=== PATIENT | female | born 1990 | race Caucasian/White ===

== ENCOUNTER 2017-04-07 15:13 | Outpatient (CLI) | payer MEDICAID ==
[2017-04-08 11:43] LABS: BASOPHILS # (AUTO) 0.1 10^3/uL (0.0-0.1); EOSINOPHILS # (AUTO) 0.2 10^3/uL (0.0-0.7); EOSINOPHILS % (AUTO) 2.2 %; HCT - HEMATOCRIT 39.6 % (37.0-47.0); HGB - HEMOGLOBIN 13.3 g/dL (12.0-16.0); LYMPHOCYTES # (AUTO) 2.7 10^3/uL (1.5-3.5); LYMPHOCYTES % (AUTO) 34.8 %; MEAN CORPUSCULAR HEMOGLOBIN 30.9 pg (27.0-31.0); MEAN CORPUSCULAR HGB CONC 33.5 g/dL (32.0-36.0); MEAN CORPUSCULAR VOLUME 92.3 fL (81.0-99.0); MONOCYTES # (AUTO) 0.5 10^3/uL (0.0-1.0); MONOCYTES % (AUTO) 6.2 %; NEUTROPHILS # (AUTO) 4.4 10^3/uL (1.5-6.6); NEUTROPHILS % (AUTO) 55.8 %; NUCLEATED RED BLOOD CELLS AUTO 0.1 /100WBC; RED BLOOD COUNT 4.29 10^6/uL (4.20-5.40); RED CELL DISTRIBUTION WIDTH 13.8 % (12.0-15.0); UNCORRECTED WHITE BLOOD COUNT 7.9 x10^3/uL; WHITE BLOOD COUNT 7.9 x10^3/uL (4.8-10.8)
[2017-04-08 12:01] LABS: ALBUMIN/GLOBULIN RATIO 1.3 (1.0-2.2); BILIRUBIN,TOTAL 0.4 mg/dL (0.2-1.0); BUN - BLOOD UREA NITROGEN 11 mg/dL (6-20); CARBON DIOXIDE - CO2 24 mmol/L (21-32); CHLORIDE 108 mmol/L (101-111); CREATININE 0.7 mg/dL (0.4-1.0); GFR - MDRD 100 (>89); GLUCOSE 93 mg/dL (70-100); POTASSIUM 3.6 mmol/L (3.5-5.0); SODIUM 139 mmol/L (135-145); TOTAL PROTEIN 7.2 g/dL (6.7-8.2)
[2017-04-08 12:04] LABS: PLATELET ESTIMATE, MANUAL NORMAL (130-450,000) (NORMAL); PLATELET MORPHOLOGY NORMAL APPEARANCE (NORMAL)
[2017-04-08 12:14] LABS: THYROID STIMULATING HORMONE 1.83 uIU/mL (0.34-5.60)
== END 2017-04-07 15:14 | disposition home or self-care (01) ==
LOC: LAB.F 15:13
PROVIDERS: ATTEND Nurse Practitioner Family
DX: G62.9 Polyneuropathy, unspecified (principal); R53.83 Other fatigue
CPT/HCPCS: 36415; 80050; 82607

== ENCOUNTER 2017-04-07 23:37 | Emergency (ER) | payer MEDICAID ==
[2017-04-07 23:48] VITALS: BP 116/72
[2017-04-07] MEDS ORDERED: IPRATROPIUM/ALBUTEROL 3 ML NEB INH STA (23:48)
[2017-04-07] MEDS ORDERED: IPRATROPIUM/ALBUTEROL 3 ML NEB INH ONE (23:58)
--- NOTE | 2017-04-08 00:40 | ED Physician Documentation ---
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 : Kidney stones, Other HEENT: None Psych: None Musculoskeletal: Chronic back pain Derm: None - Past Surgical History Past Surgical History: Yes HEENT: Tonsil/Adenoidectomy - Present Medications Home Medications: Ambulatory Orders Medication Instructions Recorded Confirmed Ondansetron Odt [Zofran] 4 mg TL Q6H PRN #10 tablet 05/08/16 Oxycodone HCl/Acetaminophen 1 - 2 each PO Q6H PRN #20 tablet 05/08/16 [Percocet 5-325 mg Tablet] LORazepam [Ativan] 0.5 - 1 mg PO Q6H PRN #20 tablet 06/05/16 - Allergies Allergies/Adverse Reactions: Allergies Allergy/AdvReac Type Severity Reaction Status Date / Time No Known Drug Allergies Allergy Verified 04/07/17 23:48 - Social History Does the pt smoke?: Yes Smoking Status: Former smoker Does the pt drink ETOH?: No Does the pt have substance abuse?: Yes - Immunizations Immunizations are current?: Yes - POLST Patient has POLST: Yes Results - Vitals Vitals: Vital Signs - 24 hr 04/07/17 04/07/17 04/08/17 23:46 23:55 00:11 Temperature 36.5 C Heart Rate 99 88 92 Respiratory 22 20 17 Rate Blood Pressure 116/72 O2 Saturation 98 99 Oxygen O2 Source Room air PD MEDICAL DECISION MAKING - ED course ED course: See paper chart ([facility]) Departure - Departure Disposition: 01 Home, Self Care Discharge Date/Time: 04/08/17 02:58
[2017-04-08] MEDS ORDERED: predniSONE 20 MG TABLET ONE (01:29)
[2017-04-08] MEDS ORDERED: guaiFENesin/CODEINE 5 ML UDC ONE (01:30)
--- NOTE | 2017-04-09 13:08 | XRAY Report ---
EXAM: CHEST RADIOGRAPHY EXAM DATE: 04/08/2017 01:33 AM. CLINICAL HISTORY: Shortness of breath COMPARISON: None. TECHNIQUE: 2 views. FINDINGS: Lungs/Pleura: No focal opacities evident. No pleural effusion. No pneumothorax. Normal volumes. Mediastinum: Heart and mediastinal contours are unremarkable. Other: None. IMPRESSION: Normal 2-view chest radiography. [facility] Referring Provider Line: [phone] SITE ID: [id number]
--- NOTE | 2017-04-09 13:08 | XRAY Preliminary Report ---
Exam: XR Chest 2 View PA/LAT IMPRESSION: Normal 2-view chest radiography. [facility] SITE ID: [id number]
== END 2017-04-08 02:58 | disposition home or self-care (01) ==
LOC: ED 23:37
DX: R05 Cough (principal); R06.02 Shortness of breath; R11.10 Vomiting, unspecified; J02.9 Acute pharyngitis, unspecified; G62.9 Polyneuropathy, unspecified; R53.83 Other fatigue; F17.200 Nicotine dependence, unspecified, uncomplicated
CPT/HCPCS: 36415; 71020; 80050; 82607; 94640; 94664; 99283; A9270; J7512; J7620

== ENCOUNTER 2017-09-23 19:51 | Emergency (ER) | payer MEDICAID ==
[2017-09-23 20:35] LABS: BILIRUBIN,URINE NEGATIVE (NEGATIVE); GLUCOSE, URINE (UA) NEGATIVE (NEGATIVE); KETONES,URINE (UA) NEGATIVE (NEGATIVE); LEUKOCYTE ESTERASE, URINE NEGATIVE (NEGATIVE); NITRITE,URINE NEGATIVE (NEGATIVE); OCCULT BLOOD,URINE NEGATIVE (NEGATIVE); PH,URINE 5.5 PH (5.0-7.5); PROTEIN,URINE NEGATIVE (NEGATIVE); UROBILINOGEN,URINE 0.2 (NORMAL) E.U./dL (NORMAL)
[2017-09-23 20:38] LABS: CLARITY,URINE CLEAR (CLEAR); HCG UR QUAL POSITIVE
--- NOTE | 2017-09-23 22:26 | ED Physician Documentation ---
History of Present Illness - Stated complaint Stated Complaint: FEMALE ;N/V/D/6-9WKS - Chief complaint Chief Complaint: Abd Pain - History obtained from History obtained from: Patient - History of Present Illness Timing: How many weeks ago (2) Pain level now: 5 Improved by: no ameliorating factors Worsened by: PO intake - Additonal information Additional information: (+) home Test three weeks ago, complains of two weeks of left pelvic pain, nausea, vomiting, and diarrhea. She has had vomiting and diarrhea since September 10. Her left pelvic pain radiates to the left hip. She also complains of fatigue and lightheadedness, worse when standing and ambulating. Review of Systems Constitutional: reports: Fatigue. denies: Fever, Chills, Sweats Cardiac: reports: Reviewed and negative Respiratory: reports: Reviewed and negative GI: reports: Nausea, Vomiting, Diarrhea. 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 , Other : Kidney stones, Other HEENT: None Psych: None Musculoskeletal: Chronic back pain Derm: None - Past Surgical History Past Surgical History: Yes HEENT: Tonsil/Adenoidectomy - Present Medications Home Medications: Ambulatory Orders Medication Instructions Recorded Confirmed Albuterol Sulf [Ventolin Hfa 2 puffs INH Q4HR PRN #1 inhaler 05/19/17 Inhaler] Albuterol Sulfate [Proair Hfa 1 - 2 puffs INH Q4H PRN 05/19/17 05/19/17 Inhaler] Benzonatate [Tessalon Perle] 100 - 200 mg PO TID PRN #30 capsule 05/19/17 Cetirizine HCl/Pseudoephedrine 1 each PO BID PRN #30 tab.er.12h 05/19/17 [Zyrtec-D Tablet] predniSONE [Prednisone] 40 mg PO DAILY #10 tablet 05/19/17 Metoclopramide [Reglan] 10 mg PO Q6H PRN #14 tablet 09/24/17 - Allergies Allergies/Adverse Reactions: Allergies Allergy/AdvReac Type Severity Reaction Status Date / Time No Known Drug Allergies Allergy Verified 09/23/17 20:08 - Social History Does the pt smoke?: No Smoking Status: Never smoker Does the pt drink ETOH?: No Does the pt have substance abuse?: No - Immunizations Immunizations are current?: Yes - POLST Patient has POLST: Yes PD ED PE NORMAL - Vitals Vital signs reviewed: Yes - General General: Alert and oriented X 3, No acute distress, Well developed/nourished - HEENT HEENT: Moist mucous membranes - Neck Neck: Supple, no meningeal sign - Cardiac Cardiac: RRR, No murmur - Respiratory Respiratory: No respiratory distress, Clear bilaterally - Derm Derm: Normal color, Warm and dry - Extremities Extremities: No edema Results - Vitals Vitals: Oxygen O2 Source Room air - Labs Labs: Laboratory Tests 09/23/17 09/23/17 09/23/17 20:25 21:30 21:30 WBC 10.1 RBC 4.27 Hgb 13.0 Hct 38.6 MCV 90.2 MCH 30.5 MCHC 33.8 RDW 13.3 Plt Count 254 MPV 8.5 Neut # 6.6 Lymph # 2.8 [place] # 0.4 Eos # 0.1 Baso # 0.1 Absolute Nucleated RBC 0.00 Nucleated RBC % 0.0 Sodium 135 Potassium 3.8 Chloride 103 Carbon Dioxide 22 Anion Gap 10.0 BUN 10 Creatinine 0.5 Estimated GFR (MDRD) 146 Glucose 80 Calcium 9.2 Total Bilirubin 0.4 AST 21 ALT 20 Alkaline Phosphatase 63 Total Protein 7.9 Albumin 3.9 Globulin 4.0 Albumin/Globulin Ratio 1.0 Lipase 24 HCG, Quant Urine Color YELLOW Urine Clarity CLEAR Urine pH 5.5 Ur Specific [place] >=1.030 H Urine Protein NEGATIVE Urine Glucose (UA) NEGATIVE Urine Ketones NEGATIVE Urine Occult Blood NEGATIVE Urine Nitrite NEGATIVE Urine Bilirubin NEGATIVE Urine Urobilinogen 0.2 (NORMAL) Ur Leukocyte Esterase NEGATIVE Ur Microscopic Review NOT INDICATED Urine Culture Comments NOT INDICATED Urine HCG, Qual POSITIVE 09/23/17 21:30 WBC RBC Hgb Hct MCV MCH MCHC RDW Plt Count MPV Neut # Lymph # [place] # Eos # Baso # Absolute Nucleated RBC Nucleated RBC % Sodium Potassium Chloride Carbon Dioxide Anion Gap BUN Creatinine Estimated GFR (MDRD) Glucose Calcium Total Bilirubin AST ALT Alkaline Phosphatase Total Protein Albumin Globulin Albumin/Globulin Ratio Lipase HCG, Quant 61813.00 Urine Color Urine Clarity Urine pH Ur Specific [place] Urine Protein Urine Glucose (UA) Urine Ketones Urine Occult Blood Urine Nitrite Urine Bilirubin Urine Urobilinogen Ur Leukocyte Esterase Ur Microscopic Review Urine Culture Comments Urine HCG, Qual - Rads (name of study) pelvic US Radiology: Prelim report reviewed, See rad report PD MEDICAL DECISION MAKING - ED course Complexity details: reviewed results, re-evaluated patient, considered differential, d/w patient ED course: tolerated PO at end of ED stay after IV fluids, zofran and reglan. Departure - Departure Disposition: 01 Home, Self Care Clinical Impression: , Vomiting, Pelvic pain Condition: Good Instructions: ED Diet Vomiting Diarrhea, ED Pelvic Pain UKO, ED Care Follow-Up: Samra Thomason ARNP [Primary Care Provider] - Prescriptions: Metoclopramide [Reglan] 10 mg PO Q6H PRN #14 tablet PRN Reason: Nausea / Vomiting Discharge Date/Time: 09/24/17 05:05
[2017-09-23] MEDS ORDERED: SODIUM CHLORIDE 0.9% 1,000 ML IV STA ×2 (22:41)
[2017-09-23 22:48] LABS: BASOPHILS # (AUTO) 0.1 10^3/uL (0.0-0.1); BASOPHILS % (AUTO) 0.6 %; EOSINOPHILS # (AUTO) 0.1 10^3/uL (0.0-0.7); EOSINOPHILS % (AUTO) 1.4 %; LYMPHOCYTES # (AUTO) 2.8 10^3/uL (1.5-3.5); LYMPHOCYTES % (AUTO) 28.3 %; MEAN CORPUSCULAR HEMOGLOBIN 30.5 pg (27.0-31.0); MEAN CORPUSCULAR HGB CONC 33.8 g/dL (32.0-36.0); MEAN CORPUSCULAR VOLUME 90.2 fL (81.0-99.0); MEAN PLATELET VOLUME 8.5 fL (7.9-10.8); MONOCYTES # (AUTO) 0.4 10^3/uL (0.0-1.0); MONOCYTES % (AUTO) 4.4 %; NEUTROPHILS # (AUTO) 6.6 10^3/uL (1.5-6.6); NEUTROPHILS % (AUTO) 65.3 %; PLT - PLATELET COUNT 254 10^3/uL (130-450); RED BLOOD COUNT 4.27 10^6/uL (4.20-5.40); RED CELL DISTRIBUTION WIDTH 13.3 % (12.0-15.0); WHITE BLOOD COUNT 10.1 x10^3/uL (4.8-10.8)
[2017-09-23 23:02] LABS: ALBUMIN 3.9 g/dL (3.2-5.5); BILIRUBIN,TOTAL 0.4 mg/dL (0.2-1.0); CALCIUM 9.2 mg/dL (8.5-10.3); CREATININE 0.5 mg/dL (0.4-1.0); TOTAL PROTEIN 7.9 g/dL (6.7-8.2)
[2017-09-23] MEDS ORDERED: MORPHINE 2 MG/ML CARPUJECT IVP STA (23:47)
[2017-09-23] MEDS ORDERED: ONDANSETRON 4 MG/2 ML VIAL IVP STA (23:48)
--- NOTE | 2017-09-24 00:01 | Ultrasound Report ---
EXAM: FIRST TRIMESTER OBSTETRIC ULTRASOUND (Less than 11 weeks) EXAM DATE: 09/23/2017 11:45 PM. CLINICAL HISTORY: , left pelvic pain. LMP: One-point 08/02/2017. COMPARISONS: None. TECHNIQUE: Transabdominal and transvaginal ultrasound examination with static image documentation. CLINICAL DATES: EGA 7 weeks 2 days with VIVI 05/10/2018 based on LMP. ASSESSMENT: Gestational Sac: Single intrauterine. Mean gestational sac diameter: 23 mm = 7 weeks 2 days. Embryo: CRL (crown-rump length) 6 mm = 6 weeks 4 days. Cardiac activity: 121 beats per minute. Yolk sac: 3 mm. Amniotic fluid: Not accurately assessed at this gestational age. Early placenta: Not visible at this gestational age. Other: Small Perigestational hemorrhage measuring 11 x 6 x 7 mm. MATERNAL STRUCTURES: Uterus: Retroverted. Unremarkable. Cervix: Closed. Right Ovary/Adnexa: Suboptimally seen due to bowel gas. The ovary measures 2.5 x 2.0 cm. Left Ovary/Adnexa: There are 2 areas with appearance suggesting corpus luteum, measuring 1.9 x 1.5 x 1.8 cm and 2.9 x 1.2 x 2.3 cm. The ovary measures 4.0 x 1.7 x 4.8 cm, volume 16.8 cc. Free Fluid: None. Other: None. IMPRESSION: 1. Single viable intrauterine at EGA 6 weeks 4 days with VIVI 05/15/2018 based on crown-rump length, which is concordant with clinical dates. 2. Assigned dating is VIVI 05/10/2018 based on LMP. 3. Tiny hemorrhage adjacent to the gestational sac measuring 11 x 6 x 7 mm. [facility] Referring Provider Line: [phone] SITE ID: [id number]
[2017-09-24] MEDS ORDERED: MORPHINE 2 MG/ML CARPUJECT IVP STA (01:33)
[2017-09-24] MEDS ORDERED: ACETAMINOPHEN 1,000 MG/100 ML 100 ML IV STA (01:56)
[2017-09-24] MEDS ORDERED: METOCLOPRAMIDE 10 MG/2 ML VIAL IVP STA (04:10)
[2017-09-24] MEDS ORDERED: HYDROcod/ACET 5/325 Prepack 6 PO STA (04:10)
[2017-09-24 05:27] VITALS: BP 121/60
== END 2017-09-24 05:05 | disposition home or self-care (01) ==
LOC: ED 19:51
DX: O26.891 Other specified pregnancy related conditions, first trimester (principal); R10.2 Pelvic and perineal pain; O21.9 Vomiting of pregnancy, unspecified; Z3A.01 Less than 8 weeks gestation of pregnancy
CPT/HCPCS: 36415; 76801; 76817; 80053; 81003; 81025; 83690; 84702; 85025; 96365; 96375; 96376; 99283; 99284; J0131; J2765; 81001; 87086

== ENCOUNTER 2017-09-25 08:00 | Outpatient (CLI) | payer MEDICAID | END 2017-09-25 23:59 | disposition home or self-care (01) | LOC: LAB.R 08:00 | PROVIDERS: ATTEND Obstetrics & Gynecology | DX: Z11.3 Encounter for screening for infections with a predominantly sexual mode of transmission (principal); Z36.9 Encounter for antenatal screening, unspecified | CPT/HCPCS: 87491; 87591 ==

== ENCOUNTER 2017-09-30 23:49 | Emergency (ER) | payer MEDICAID ==
[2017-09-30] MEDS ORDERED: diphenhydrAMINE INJ 50 MG/ML VIAL IVP STA (23:54)
[2017-09-30] MEDS ORDERED: METOCLOPRAMIDE 10 MG/2 ML VIAL IVP STA (23:54)
[2017-09-30] MEDS ORDERED: SODIUM CHLORIDE 0.9% 1,000 ML IV ONE (23:54)
[2017-10-01 00:09] LABS: BILIRUBIN,URINE NEGATIVE (NEGATIVE); GLUCOSE, URINE (UA) NEGATIVE (NEGATIVE); KETONES,URINE (UA) NEGATIVE (NEGATIVE); LEUKOCYTE ESTERASE, URINE NEGATIVE (NEGATIVE); NITRITE,URINE NEGATIVE (NEGATIVE); OCCULT BLOOD,URINE TRACE-INTA (NEGATIVE); PH,URINE 5.5 PH (5.0-7.5); PROTEIN,URINE NEGATIVE (NEGATIVE); UROBILINOGEN,URINE 0.2 (NORMAL) E.U./dL (NORMAL)
--- NOTE | 2017-10-01 00:13 | ED Physician Documentation ---
PD HPI FEMALE - Stated complaint Stated Complaint: VOMITING - Chief complaint Chief Complaint: Abd Pain - History obtained from History obtained from: Patient - History of Present Illness Timing - onset: How many weeks ago (4) Timing - details: Intermittant Contributing factors: Similar symptoms before: Work up / diagnostics, Treatment Recently seen: Emergency Dept - Additional information Additional information: Patient is a 27 year old approximately 8 weeks by imaging who is presenting to the emergency department for nausea and vomiting. patient's has been complicated by multiple bouts of nausea and vomiting. Patient has follow up with OB and has been prescribed reglan but her symptoms have persisted. Review of Systems Constitutional: denies: Fever, Chills Eyes: reports: Reviewed and negative Ears: reports: Reviewed and negative Nose: reports: Reviewed and negative Throat: reports: Reviewed and negative Cardiac: denies: Chest pain / pressure, Palpitations Respiratory: denies: Dyspnea, Cough GI: reports: Nausea, Vomiting, Constipation. denies: Abdominal Pain, Diarrhea : denies: Dysuria, Frequency, Discharge, Vaginal bleeding Neurologic: reports: Reviewed and negative. 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 10/01/17 [Ulises Shah 10-10 mg Tablet] - Allergies Allergies/Adverse Reactions: Allergies Allergy/AdvReac Type Severity Reaction Status Date / Time No Known Drug Allergies Allergy Verified 09/30/17 23:56 - Social History Does the pt smoke?: No Smoking Status: Never smoker Does the pt drink ETOH?: No Does the pt have substance abuse?: No - Immunizations Immunizations are current?: Yes - POLST Patient has POLST: Yes PD ED PE NORMAL - Vitals Vital signs reviewed: Yes - General General: Alert and oriented X 3, No acute distress - HEENT HEENT: Atraumatic, Moist mucous membranes - Neck Neck: Supple, no meningeal sign - Cardiac Cardiac: RRR - Respiratory Respiratory: No respiratory distress - Abdomen Abdomen: Soft, Non tender, Non distended - Derm Derm: Normal color, Warm and dry - Extremities Extremities: No deformity - Neuro Neuro: Alert and oriented X 3, No motor deficit, Normal speech Eye Opening: Spontaneous Results - Vitals Vitals: Vital Signs - 24 hr 09/30/17 10/01/17 23:52 00:53 Temperature 35.9 C L Heart Rate 74 63 Respiratory 18 16 Rate Blood Pressure 94/47 L 109/52 L O2 Saturation 99 99 Oxygen O2 Source Room air - Labs Labs: Laboratory Tests 10/01/17 00:04 Urine Color YELLOW Urine Clarity CLEAR Urine pH 5.5 Ur Specific [place] >=1.030 H Urine Protein NEGATIVE Urine Glucose (UA) NEGATIVE Urine Ketones NEGATIVE Urine Occult Blood TRACE-INTA Urine Nitrite NEGATIVE Urine Bilirubin NEGATIVE Urine Urobilinogen 0.2 (NORMAL) Ur Leukocyte Esterase NEGATIVE Ur Microscopic Review NOT INDICATED Urine Culture Comments NOT INDICATED PD MEDICAL DECISION MAKING - ED course Complexity details: reviewed old records, reviewed results, re-evaluated patient , considered differential, d/w patient, d/w family ED course: Patient was seen and examined at bedside. urine was collected. IV access was gained. Patient was treated with reglan, benadryl and IV fluids. Patient's urinalysis showed no ketones. Patient stated that she was constipated but had a bowel movement while she was here. Patient had no episodes of emesis while in the emergency department and was stable for discharge with outpatient follow up. Departure - Departure Disposition: 01 Home, Self Care Clinical Impression: Vomiting affecting Condition: Good Instructions: ED Preg Morning Sickness Follow-Up: Samra Thomason ARNP [Primary Care Provider] - Prescriptions: Doxylamine/Pyridoxine HCl [Ulises Shah 10-10 mg Tablet] 1 each PO BID #14 tablet. Comments: Your diagnostics today were within normal limits. there is no sign of dehydration on your urinalysis which means you are doing a good job staying hydrated. you should continue with reglan and you can try bendadryl and dicligis and adriana (adriana candies, tea, raw adriana). Marijuana might also be contributing to your symptoms as well so you should refrain from partaking. You should follow up with your doctor. You may return to the emergency department at any time for new, worsening or uncontrollable symptoms.
[2017-10-01 00:14] LABS: CLARITY,URINE CLEAR (CLEAR)
[2017-10-01 01:34] VITALS: BP 105/60
== END 2017-10-01 01:30 | disposition home or self-care (01) ==
LOC: ED 23:49
DX: O21.0 Mild hyperemesis gravidarum (principal); Z3A.08 8 weeks gestation of pregnancy
CPT/HCPCS: 81003; 96361; 96374; 96375; 99283; J1200; J2765; 81001; 87086

== ENCOUNTER 2017-10-07 13:07 | Outpatient (CLI) | payer MEDICAID ==
--- NOTE | 2017-10-07 16:10 | Ultrasound Report ---
FIRST TRIMESTER OB ULTRASOUND: 10/07/2017 CLINICAL INDICATION: Dating, hyperemesis. COMPARISON: 09/23/2017. TECHNIQUE: Transvaginal pelvic ultrasound performed for detailed evaluation. Real-time scanning performed and static images obtained. Transabdominal imaging was suboptimal, secondary to empty urinary bladder and vomiting. LAST MENSTRUAL PERIOD 08/03/2017 Clinical Age 9 weeks 2 days US Age 8 weeks 3 days EFW [place] -- EFW% [place] -- Heart Rate 171 bpm EDC 05/10/2018 US EDC CRL 05/15/2018 05/16/2018 BPD [place] -- HC [place]lock -- AC Hadlock -- FL Hadlock -- Presentation -- Placental Location -- Cervical Length -- Amniotic Fluid -- FINDINGS: There is a gestational sac within the endometrial canal, with pole and yolk sac visualized. By crown-rump length, the fetus measures 8 weeks 3 days (8 weeks 4 days by previous sonogram). heart rate is 171 BPM. There is a 2.3 cm subchorionic hemorrhage present. A 4.4 cm anterior leiomyoma is again noted. The right ovary was not confidently identified. The left ovary measures 3.8 x 2.7 x 1.9 cm, and demonstrates a 2 cm corpus luteum. A small amount of free fluid is present. IMPRESSION 1. EXPECTED INTERVAL GROWTH OF SINGLE VIABLE INTRAUTERINE GESTATION, WITH SIZE IN KEEPING WITH LMP DATING. 2. INCREASING SIZE OF SUBCHORIONIC HEMORRHAGE. 3. LEFT CORPUS LUTEUM. 4. A 4.4 CM ANTERIOR LEIOMYOMA. TD: 10/07/2017 15:10 [facility]
== END 2017-10-07 13:08 | disposition home or self-care (01) ==
LOC: DI 13:07
PROVIDERS: ATTEND Obstetrics & Gynecology
DX: O26.849 Uterine size-date discrepancy, unspecified trimester (principal); O46.8X1 Other antepartum hemorrhage, first trimester; Z3A.08 8 weeks gestation of pregnancy; O34.81 Maternal care for other abnormalities of pelvic organs, first trimester; N83.12 Corpus luteum cyst of left ovary; O34.11 Maternal care for benign tumor of corpus uteri, first trimester
CPT/HCPCS: 76801

== ENCOUNTER 2017-10-10 02:20 | Emergency (ER) | payer MEDICAID ==
[2017-10-10 04:22] LABS: BASOPHILS # (AUTO) 0.1 10^3/uL (0.0-0.1); BASOPHILS % (AUTO) 0.6 %; EOSINOPHILS # (AUTO) 0.2 10^3/uL (0.0-0.7); EOSINOPHILS % (AUTO) 1.7 %; HGB - HEMOGLOBIN 13.4 g/dL (12.0-16.0); LYMPHOCYTES # (AUTO) 2.8 10^3/uL (1.5-3.5); LYMPHOCYTES % (AUTO) 27.9 %; MEAN CORPUSCULAR HEMOGLOBIN 30.1 pg (27.0-31.0); MEAN CORPUSCULAR HGB CONC 33.6 g/dL (32.0-36.0); MEAN CORPUSCULAR VOLUME 89.4 fL (81.0-99.0); MEAN PLATELET VOLUME 7.7 fL (7.9-10.8); MONOCYTES # (AUTO) 0.5 10^3/uL (0.0-1.0); MONOCYTES % (AUTO) 4.7 %; NEUTROPHILS # (AUTO) 6.5 10^3/uL (1.5-6.6); NEUTROPHILS % (AUTO) 65.1 %; PLT - PLATELET COUNT 285 10^3/uL (130-450); RED BLOOD COUNT 4.45 10^6/uL (4.20-5.40); RED CELL DISTRIBUTION WIDTH 12.9 % (12.0-15.0)
[2017-10-10 04:23] LABS: BILIRUBIN,URINE NEGATIVE (NEGATIVE); GLUCOSE, URINE (UA) NEGATIVE (NEGATIVE); KETONES,URINE (UA) NEGATIVE (NEGATIVE); LEUKOCYTE ESTERASE, URINE NEGATIVE (NEGATIVE); NITRITE,URINE NEGATIVE (NEGATIVE); OCCULT BLOOD,URINE NEGATIVE (NEGATIVE); PH,URINE 5.5 PH (5.0-7.5); PROTEIN,URINE NEGATIVE (NEGATIVE); UROBILINOGEN,URINE 0.2 (NORMAL) E.U./dL (NORMAL)
--- NOTE | 2017-10-10 04:24 | ED Physician Documentation ---
History of Present Illness - Stated complaint Stated Complaint: DIFF BREATHING(9 WKS PREG) - Chief complaint Chief Complaint: Resp - History obtained from History obtained from: Patient - History of Present Illness Timing: How many days ago (2) Improved by: sitting up Worsened by: lying down (supine) - Additonal information Additional information: c/o 2 days of sensation of neck swelling with difficulty swallowing (can tolerate liquids more than solids). Mild dyspnea. She is concerned that this might be related to previous episodes of thyroid problems associated with previous pregnancies. She also describes several days of lower abdominal bloating sensation. She has had US in this , showed "the baby and the heart beating" (per patient) Review of Systems Constitutional: reports: Fatigue. 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 10/01/17 [Ulises Shah 10-10 mg Tablet] - Allergies Allergies/Adverse Reactions: Allergies Allergy/AdvReac Type Severity Reaction Status Date / Time No Known Drug Allergies Allergy Verified 09/30/17 23:56 - Social History Does the pt smoke?: No Smoking Status: Never smoker Does the pt drink ETOH?: No Does the pt have substance abuse?: No - Immunizations Immunizations are current?: Yes - POLST Patient has POLST: Yes PD ED PE NORMAL - Vitals Vital signs reviewed: Yes - General General: Alert and oriented X 3, No acute distress, Well developed/nourished - Neck Neck: Supple, no meningeal sign, No adenopathy, Thyroid normal - Cardiac Cardiac: RRR, No murmur - Respiratory Respiratory: No respiratory distress, Clear bilaterally - Abdomen Abdomen: Normal bowel sounds, Soft, Non tender, Non distended Results - Vitals Vitals: Oxygen O2 Source Room air - EKG (time done) No standard instances Rate: Rate (enter#) (74) Rhythm: NSR Allen: Normal Intervals: Normal CO QRS: Normal Ischemia: Normal ST segments - Labs Labs: Laboratory Tests 10/10/17 10/10/17 10/10/17 04:10 04:10 04:10 WBC 10.0 RBC 4.45 Hgb 13.4 Hct 39.8 MCV 89.4 MCH 30.1 MCHC 33.6 RDW 12.9 Plt Count 285 MPV 7.7 L Neut # 6.5 Lymph # 2.8 [place] # 0.5 Eos # 0.2 Baso # 0.1 Absolute Nucleated RBC 0.00 Nucleated RBC % 0.0 Sodium 134 L Potassium 3.6 Chloride 103 Carbon Dioxide 24 Anion Gap 7.0 BUN 8 Creatinine 0.6 Estimated GFR (MDRD) 118 Glucose 96 POC Whole Bld Glucose Calcium 9.0 Total Bilirubin 0.2 AST 16 ALT 23 Alkaline Phosphatase 79 Total Protein 7.5 Albumin 3.8 Globulin 3.7 Albumin/Globulin Ratio 1.0 Lipase 25 TSH 2.94 Urine Color Urine Clarity Urine pH Ur Specific [place] Urine Protein Urine Glucose (UA) Urine Ketones Urine Occult Blood Urine Nitrite Urine Bilirubin Urine Urobilinogen Ur Leukocyte Esterase Ur Microscopic Review Urine Culture Comments Urine HCG, Qual 10/10/17 10/10/17 04:19 05:12 WBC RBC Hgb Hct MCV MCH MCHC RDW Plt Count MPV Neut # Lymph # [place] # Eos # Baso # Absolute Nucleated RBC Nucleated RBC % Sodium Potassium Chloride Carbon Dioxide Anion Gap BUN Creatinine Estimated GFR (MDRD) Glucose POC Whole Bld Glucose 87 Calcium Total Bilirubin AST ALT Alkaline Phosphatase Total Protein Albumin Globulin Albumin/Globulin Ratio Lipase TSH Urine Color YELLOW Urine Clarity N Urine pH 5.5 Ur Specific [place] >=1.030 H Urine Protein NEGATIVE Urine Glucose (UA) NEGATIVE Urine Ketones NEGATIVE Urine Occult Blood NEGATIVE Urine Nitrite NEGATIVE Urine Bilirubin NEGATIVE Urine Urobilinogen 0.2 (NORMAL) Ur Leukocyte Esterase NEGATIVE Ur Microscopic Review NOT INDICATED Urine Culture Comments NOT INDICATED Urine HCG, Qual POSITIVE PD MEDICAL DECISION MAKING - ED course Complexity details: reviewed results, re-evaluated patient, considered differential, d/w patient, d/w family Departure - Departure Disposition: 01 Home, Self Care Clinical Impression: Dyspnea Condition: Good Instructions: ED Dyspnea Shortness of Breath Follow-Up: Zeeshan Driscoll MD [Provider Admit Priv/Credential] - Samra Thomason ARNP [Primary Care Provider] - Discharge Date/Time: 10/10/17 06:27
[2017-10-10 04:25] LABS: CLARITY,URINE N (CLEAR); HCG UR QUAL POSITIVE
[2017-10-10 04:30] LABS: ALBUMIN 3.8 g/dL (3.2-5.5); BILIRUBIN,TOTAL 0.2 mg/dL (0.2-1.0); CREATININE 0.6 mg/dL (0.4-1.0); TOTAL PROTEIN 7.5 g/dL (6.7-8.2)
[2017-10-10 06:25] VITALS: BP 117/85
== END 2017-10-10 06:27 | disposition home or self-care (01) ==
LOC: ED 02:20
DX: O26.891 Other specified pregnancy related conditions, first trimester (principal); R06.00 Dyspnea, unspecified; R30.0 Dysuria; Z3A.09 9 weeks gestation of pregnancy
CPT/HCPCS: 36415; 80053; 81001; 81003; 81025; 83690; 84443; 85025; 87086; 93005; 99283

== ENCOUNTER 2017-10-10 17:30 | Outpatient (CLI) | payer MEDICAID ==
[2017-10-10 17:54] LABS: BILIRUBIN,URINE NEGATIVE (NEGATIVE); GLUCOSE, URINE (UA) NEGATIVE (NEGATIVE); KETONES,URINE (UA) NEGATIVE (NEGATIVE); LEUKOCYTE ESTERASE, URINE NEGATIVE (NEGATIVE); NITRITE,URINE NEGATIVE (NEGATIVE); OCCULT BLOOD,URINE TRACE-INTA (NEGATIVE); PH,URINE 5.5 PH (5.0-7.5); PROTEIN,URINE NEGATIVE (NEGATIVE); UROBILINOGEN,URINE 0.2 (NORMAL) E.U./dL (NORMAL)
[2017-10-10 17:59] LABS: CLARITY,URINE CLOUDY (CLEAR)
[2017-10-10 18:10] LABS: AMORPHOUS SEDIMENT,UR Moderate /LPF; BACTERIA,URINE Moderate /HPF (None Seen); RBC,URINE 0-5 /HPF (0-5); SQUAMOUS EPITHELIAL CELL,UR RARE Squamous (<= Few)
== END 2017-10-10 17:31 | disposition home or self-care (01) ==
LOC: LAB.R 17:30
PROVIDERS: ATTEND Obstetrics & Gynecology
DX: R30.0 Dysuria (principal)
CPT/HCPCS: 81001; 87086

== ENCOUNTER 2017-10-24 12:10 | Outpatient (CLI) | payer MEDICAID ==
[2017-10-24 12:57] LABS: BILIRUBIN,URINE NEGATIVE (NEGATIVE); GLUCOSE, URINE (UA) NEGATIVE (NEGATIVE); KETONES,URINE (UA) NEGATIVE (NEGATIVE); LEUKOCYTE ESTERASE, URINE SMALL (NEGATIVE); NITRITE,URINE NEGATIVE (NEGATIVE); OCCULT BLOOD,URINE NEGATIVE (NEGATIVE); PH,URINE 6.5 PH (5.0-7.5); PROTEIN,URINE NEGATIVE (NEGATIVE); UROBILINOGEN,URINE 0.2 (NORMAL) E.U./dL (NORMAL)
[2017-10-24 12:58] LABS: CLARITY,URINE CLEAR (CLEAR)
[2017-10-24 13:59] LABS: BACTERIA,URINE Moderate /HPF (None Seen); RBC,URINE 0-5 /HPF (0-5); SQUAMOUS EPITHELIAL CELL,UR MOD Squamous (<= Few)
== END 2017-10-24 12:11 | disposition home or self-care (01) ==
LOC: LAB 12:10
PROVIDERS: ATTEND Obstetrics & Gynecology
DX: R39.82 Chronic bladder pain (principal)
CPT/HCPCS: 81001; 87086

== ENCOUNTER 2017-10-26 02:04 | Emergency (ER) | payer MEDICAID ==
[2017-10-26 02:47] LABS: BILIRUBIN,URINE NEGATIVE (NEGATIVE); GLUCOSE, URINE (UA) NEGATIVE (NEGATIVE); KETONES,URINE (UA) NEGATIVE (NEGATIVE); LEUKOCYTE ESTERASE, URINE NEGATIVE (NEGATIVE); NITRITE,URINE NEGATIVE (NEGATIVE); OCCULT BLOOD,URINE NEGATIVE (NEGATIVE); PH,URINE 5.5 PH (5.0-7.5); PROTEIN,URINE NEGATIVE (NEGATIVE); UROBILINOGEN,URINE 0.2 (NORMAL) E.U./dL (NORMAL)
[2017-10-26 02:51] LABS: CLARITY,URINE CLEAR (CLEAR)
--- NOTE | 2017-10-26 02:58 | ED Physician Documentation ---
PD HPI ABD PAIN - Stated complaint Stated Complaint: LOW ABD PAIN - Chief complaint Chief Complaint: Abd Pain - History obtained from History obtained from: Patient - History of Present Illness Timing - onset: How many days ago (4-5 days ago) Timing - duration: Days Timing - details: Gradual onset, Waxing and waning Pain level now: 8 Quality: Pain Location: Suprapubic Radiation: Lower back Improved by: Laying still Worsened by: Moving Associated symptoms: Nausea, Vomiting (controlled with reglan rx). No: Fever, Diarrhea, Constipation, Dysuria, Hematuria Recently seen: Clinic, Emergency Dept - Additional information Additional information: T+R from this ED 3 times last month (visits have been for similar issues, as well as dyspnea (although she also mentioned this suprapubic discomfort on the dyspnea-related visit). she says she also has been seen by her loan reviewer for this same discomfort she has tonight. Patient says she has had recurrent suprapubic discomfort that radiates to lower back. She says she has had several urinary samples that were negative but that on 10/10, she was seen by her loan reviewer, a catheter was placed into the bladder and, by patient's description, she was started on an antibiotic for what appeared to be cloudy urine. she says that her symptoms resolved while on the antibiotic (cannot recall which abx was prescribed), but she completed this antibiotic (1 week course) and a few days later, her symptoms returned. Patient says she was evaluated by her loan reviewer again , yesterday, no rx given, was told to go to [facility] if worse over weekend. Review of Systems Constitutional: denies: Fever, Chills, Sweats Cardiac: reports: Reviewed and negative Respiratory: reports: Reviewed and negative GI: reports: Abdominal Pain, Nausea, Vomiting. denies: Constipation, Diarrhea : reports: Now EGA (approximately 12 weeks). 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 10/01/17 [Ulises Shah 10-10 mg Tablet] Hydrocodone/Acetaminophen 1 - 2 each PO Q6HR PRN #10 tablet 10/26/17 [Hydrocodon-Acetaminophen 5-325] - Allergies Allergies/Adverse Reactions: Allergies Allergy/AdvReac Type Severity Reaction Status Date / Time No Known Drug Allergies Allergy Verified 10/26/17 02:18 - Social History Does the pt smoke?: No Smoking Status: Never smoker Does the pt drink ETOH?: No Does the pt have substance abuse?: No - Immunizations Immunizations are current?: Yes - POLST Patient has POLST: Yes PD ED PE NORMAL - Vitals Vital signs reviewed: Yes - General General: Alert and oriented X 3, No acute distress, Well developed/nourished - Abdomen Abdomen: Normal bowel sounds, Soft, Non tender, Non distended, No organomegaly - Back Back: No CVA TTP Results - Vitals Vitals: Oxygen O2 Source Room air - Labs Labs: Laboratory Tests 10/26/17 02:40 Urine Color YELLOW Urine Clarity CLEAR Urine pH 5.5 Ur Specific [place] 1.020 Urine Protein NEGATIVE Urine Glucose (UA) NEGATIVE Urine Ketones NEGATIVE Urine Occult Blood NEGATIVE Urine Nitrite NEGATIVE Urine Bilirubin NEGATIVE Urine Urobilinogen 0.2 (NORMAL) Ur Leukocyte Esterase NEGATIVE Ur Microscopic Review NOT INDICATED Urine Culture Comments NOT INDICATED PD MEDICAL DECISION MAKING - ED course Complexity details: reviewed old records, considered differential, d/w patient ED course: Patient was under the impression that she would be evaluated by loan reviewer if she came to [facility]. I contacted Dr. Murrieta, no specific recommendations at this time. I explained to patient that her UA result tonight is unremarkable and further emergent testing not indicated at this time. Small amount of vicodin prescribed for pain control, as tylenol alone has been ineffective at home. Departure - Departure Disposition: 01 Home, Self Care Clinical Impression: Pelvic pain, Vomiting Qualifiers: Weeks of gestation: 12 weeks Qualified Code(s): Z3A.12 - 12 weeks gestation of Condition: Good Instructions: ED Pelvic Pain [facility] Follow-Up: Carol Murrieta DO [Provider Admit Priv/Credential] - Prescriptions: Hydrocodone/Acetaminophen [Hydrocodon-Acetaminophen 5-325] 1 - 2 each PO Q6HR PRN #10 tablet PRN Reason: Pain Discharge Date/Time: 10/26/17 04:13
[2017-10-26] MEDS ORDERED: ACETAMINOPHEN 325 MG TABLET PO STA (03:57)
[2017-10-26] MEDS ORDERED: HYDROcod/ACET 5/325 Prepack 4 PO STA (03:58)
[2017-10-26 04:13] VITALS: BP 128/78
== END 2017-10-26 04:13 | disposition home or self-care (01) ==
LOC: ED 02:04
DX: O21.0 Mild hyperemesis gravidarum (principal); O99.89 Other specified diseases and conditions complicating pregnancy, childbirth and the puerperium; R10.2 Pelvic and perineal pain; O99.511 Diseases of the respiratory system complicating pregnancy, first trimester; J45.909 Unspecified asthma, uncomplicated; Z3A.12 12 weeks gestation of pregnancy; Z87.442 Personal history of urinary calculi
CPT/HCPCS: 81003; 99283; A9270; 81001; 87086

== ENCOUNTER 2017-10-27 08:00 | Outpatient (CLI) | payer MEDICAID | END 2017-10-27 08:01 | LOC: LAB.R 08:00 | PROVIDERS: ATTEND Obstetrics & Gynecology | DX: R30.0 Dysuria (principal) | CPT/HCPCS: 87086 ==

== ENCOUNTER 2017-12-07 19:30 | Emergency (ER) | payer MEDICAID ==
[2017-12-07 20:02] LABS: BILIRUBIN,URINE NEGATIVE (NEGATIVE); GLUCOSE, URINE (UA) NEGATIVE (NEGATIVE); KETONES,URINE (UA) NEGATIVE (NEGATIVE); LEUKOCYTE ESTERASE, URINE NEGATIVE (NEGATIVE); NITRITE,URINE NEGATIVE (NEGATIVE); OCCULT BLOOD,URINE NEGATIVE (NEGATIVE); PH,URINE 5.5 PH (5.0-7.5); PROTEIN,URINE NEGATIVE (NEGATIVE); UROBILINOGEN,URINE 0.2 (NORMAL) E.U./dL (NORMAL)
[2017-12-07 20:04] LABS: CLARITY,URINE CLEAR (CLEAR)
--- NOTE | 2017-12-07 20:27 | ED Physician Documentation ---
History of Present Illness - Stated complaint Stated Complaint: FEMALE /18 WK OB - Chief complaint Chief Complaint: Abd Pain - History obtained from History obtained from: Patient - History of Present Illness Timing: How many weeks ago (1) Pain level max: 7 Pain level now: 3 - Additonal information Additional information: 27 year old female, , currently approx 18 weeks . States lower abd pain and low back pain x 1 week. states feels like a dull achy pressure. Normally a 3/10, but can be up to 7/10. Took tylenol and this helped. States worse with movement and better with rest. Denies fever, chills, diarrhea and vomiting. Review of Systems Ten Systems: 10 systems reviewed and negative Constitutional: denies: Fever, Chills Ears: denies: Ear pain Nose: denies: Rhinorrhea / runny nose, Congestion Cardiac: denies: Chest pain / pressure Respiratory: denies: Cough, Wheezing GI: denies: Nausea, Vomiting, Diarrhea : reports: Now EGA (18 weeks). 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 10/01/17 [Ulises Shah 10-10 mg Tablet] Hydrocodone/Acetaminophen 1 - 2 each PO Q6HR PRN #10 tablet 10/26/17 [Hydrocodon-Acetaminophen 5-325] Hydrocodone/Acetaminophen 1 - 2 each PO Q6H PRN #10 tablet 12/07/17 [Hydrocodon-Acetaminophen 5-325] - Allergies Allergies/Adverse Reactions: Allergies Allergy/AdvReac Type Severity Reaction Status Date / Time No Known Drug Allergies Allergy Verified 10/26/17 02:18 - Social History Does the pt smoke?: No Smoking Status: Never smoker Does the pt drink ETOH?: No Does the pt have substance abuse?: No - Immunizations Immunizations are current?: Yes - POLST Patient has POLST: Yes PD ED PE NORMAL - Vitals Vital signs reviewed: Yes - General General: Alert and oriented X 3, No acute distress - HEENT HEENT: Moist mucous membranes - Neck Neck: Supple, no meningeal sign - Cardiac Cardiac: RRR, Strong equal pulses - Respiratory Respiratory: No respiratory distress, Clear bilaterally - Abdomen Abdomen: Soft, Non tender, Non distended - Back Back: No CVA TTP, No spinal TTP - Derm Derm: Warm and dry, No rash - Extremities Extremities: No edema, No calf tenderness / cord - Neuro Neuro: Alert and oriented X 3 - Psych Psych: Normal mood, Normal affect Results - Vitals Vitals: Vital Signs - 24 hr 12/07/17 12/07/17 19:34 20:59 Temperature 36.1 C L Heart Rate 97 69 Respiratory 16 17 Rate Blood Pressure 97/60 106/58 L O2 Saturation 99 100 Oxygen O2 Source Room air - Labs Labs: Laboratory Tests 12/07/17 19:45 Urine Color YELLOW Urine Clarity CLEAR Urine pH 5.5 Ur Specific [place] 1.025 Urine Protein NEGATIVE Urine Glucose (UA) NEGATIVE Urine Ketones NEGATIVE Urine Occult Blood NEGATIVE Urine Nitrite NEGATIVE Urine Bilirubin NEGATIVE Urine Urobilinogen 0.2 (NORMAL) Ur Leukocyte Esterase NEGATIVE Ur Microscopic Review NOT INDICATED Urine Culture Comments NOT INDICATED PD MEDICAL DECISION MAKING - ED course Complexity details: reviewed results, re-evaluated patient, considered differential, d/w patient ED course: Patient is a 27-year-old female, 6 para 3 who is currently 18 weeks who presents with low back pain. This is similar to her prior episodes of sciatica in the past. Does occasionally radiate down the right leg. No vaginal bleeding. No dysuria. Bedside ultrasound reveals a heart rate of 145 bpm with movement present. Single intrauterine . Images were shown to the patient at bedside. Normal urinalysis. We will trial and a small amount of pain medication and have her follow-up closely with her doctor for further care. No abdominal tenderness. No evidence of appendicitis. Patient counseled regarding signs and symptoms for which I believe and urgent re-evaluation would be necessary. Patient with good understanding of and agreement to plan and is comfortable going home at this time This document was made in part using voice recognition software. While efforts are made to proofread this document, sound alike and grammatical errors may occur. Departure - Departure Disposition: 01 Home, Self Care Clinical Impression: Abdominal pain Back pain Qualifiers: Back pain location: low back pain Chronicity: acute Back pain laterality: right Sciatica presence: with sciatica Sciatica laterality: sciatica of right side Qualified Code(s): M54.41 - Lumbago with sciatica, right side Condition: Good Instructions: ED Abdominal Pain Unkn Cause Follow-Up: Samra Thomason ARNP [Primary Care Provider] - Within 3 Days Prescriptions: Hydrocodone/Acetaminophen [Hydrocodon-Acetaminophen 5-325] 1 - 2 each PO Q6H PRN #10 tablet PRN Reason: pain Comments: The cause of your symptoms is unclear today. Return if you worsen. Follow-up with your doctor for further care. Do not drink alcohol or drive while on narcotic pain medicine. Note that many narcotic pain relievers also contain tylenol/acetaminophen. Please ensure that your total dose of acetaminophen from all sources does not exceed 3 grams (3000mg) per day. You may constipated on this medication, take a stool softener such as "Colace" twice a day while you are on it. Also recommend a qsoa-oyb-odavtau laxative such as senna or MiraLAX any day that you do not have a bowel movement. If you received narcotic pain medication in the emergency department, do not drive or operate machinery for the next 24 hours. Discharge Date/Time: 12/07/17 21:20
[2017-12-07 21:03] VITALS: BP 106/58
[2017-12-07] MEDS ORDERED: HYDROcod/ACET 5/325 Prepack 4 PO STA (21:08)
== END 2017-12-07 21:20 | disposition home or self-care (01) ==
LOC: ED 19:30
DX: O26.892 Other specified pregnancy related conditions, second trimester (principal); R10.9 Unspecified abdominal pain; O99.89 Other specified diseases and conditions complicating pregnancy, childbirth and the puerperium; M54.41 Lumbago with sciatica, right side; Z3A.18 18 weeks gestation of pregnancy
CPT/HCPCS: 81001; 81003; 87086; 99283

== ENCOUNTER 2018-02-26 11:20 | Outpatient (CLI) | payer MEDICAID | END 2018-02-26 11:21 | disposition home or self-care (01) | LOC: LAB.R 11:20 | PROVIDERS: ATTEND Family Medicine | DX: Z33.1 Pregnant state, incidental (principal) | CPT/HCPCS: 87086 ==

== ENCOUNTER 2018-03-27 21:26 | Observation (INO) | payer MEDICAID ==
[2018-03-27 22:07] LABS: BILIRUBIN,URINE NEGATIVE (NEGATIVE); GLUCOSE, URINE (UA) NEGATIVE (NEGATIVE); KETONES,URINE (UA) NEGATIVE (NEGATIVE); LEUKOCYTE ESTERASE, URINE NEGATIVE (NEGATIVE); NITRITE,URINE NEGATIVE (NEGATIVE); OCCULT BLOOD,URINE NEGATIVE (NEGATIVE); PROTEIN,URINE NEGATIVE (NEGATIVE); UROBILINOGEN,URINE 0.2 (NORMAL) E.U./dL (NORMAL)
[2018-03-27 22:15] LABS: BACTERIA,URINE None Seen /HPF (None Seen); CLARITY,URINE CLEAR (CLEAR); RBC,URINE None Seen /HPF (0-5); SQUAMOUS EPITHELIAL CELL,UR MOD Squamous (<= Few)
[2018-03-27 22:47] LABS: BASOPHILS # (AUTO) 0.1 10^3/uL (0.0-0.1); BASOPHILS % (AUTO) 0.5 %; EOSINOPHILS # (AUTO) 0.1 10^3/uL (0.0-0.7); EOSINOPHILS % (AUTO) 1.1 %; HGB - HEMOGLOBIN 10.2 g/dL (12.0-16.0); LYMPHOCYTES # (AUTO) 2.5 10^3/uL (1.5-3.5); LYMPHOCYTES % (AUTO) 21.9 %; MEAN CORPUSCULAR HEMOGLOBIN 30.5 pg (27.0-31.0); MEAN CORPUSCULAR HGB CONC 34.3 g/dL (32.0-36.0); MEAN CORPUSCULAR VOLUME 88.8 fL (81.0-99.0); MEAN PLATELET VOLUME 7.9 fL (7.9-10.8); MONOCYTES # (AUTO) 0.6 10^3/uL (0.0-1.0); MONOCYTES % (AUTO) 5.4 %; NEUTROPHILS % (AUTO) 71.1 %; PLT - PLATELET COUNT 200 10^3/uL (130-450); RED BLOOD COUNT 3.34 10^6/uL (4.20-5.40); RED CELL DISTRIBUTION WIDTH 14.3 % (12.0-15.0); WHITE BLOOD COUNT 11.3 x10^3/uL (4.8-10.8)
[2018-03-27 23:00] LABS: ALBUMIN 2.7 g/dL (3.2-5.5); ALBUMIN/GLOBULIN RATIO 0.8 (1.0-2.2); BILIRUBIN,TOTAL 0.4 mg/dL (0.2-1.0); CALCIUM 8.7 mg/dL (8.5-10.3); CREATININE 0.5 mg/dL (0.4-1.0); TOTAL PROTEIN 5.9 g/dL (6.7-8.2)
[2018-03-27] MEDS ORDERED: SODIUM CHLORIDE FLUSH 0.9% 10 ML SYRINGE IVP PRN (23:35)
[2018-03-27] MEDS ORDERED: MORPHINE 10 MG/ML VIAL IVP ONE (23:39)
[2018-03-28] MEDS: SODIUM CHLORIDE FLUSH 0.9% 10 ML SYRINGE IVP SCH ×3 (00:30→18:46)
--- NOTE | 2018-03-28 00:37 | HISTORY & PHYSICAL EXAMINATION ---
Chief Complaint - Chief Complaint Chief Complaint: pain History of Present Illness - History Obtained From Records Reviewed: prenatals from midwifery clinic History obtained from: pt - History of Present Illness HPI Comment/Other: At about 14:00 on 03/27/18 pt began having menstrual-like pains n the lower abdomen. At 4pm these pains became sharp, stabbing, and intense. She called CNM who recommended bath, hydration, position change, heat, ice, and tylenol. She got some relief in the tub but as soon as she felt her body temperature returning to normal she began having pain again. [place] LLQ. Quality: stabbing and cramping Radiation: sometimes to the left leg, can make the left leg twitch, sometimes radiates to the back. Assoicated sx: leg twitch, sensation of mild vaginal pressure. Severity: 01/22... was 06/24. Timing: mostly constant but can flare. Has never had pain like this in the past but it feels most similar to when she had a ruptured ovarian cyst. it does not feel like a kidney stone to her which gave pain only in the flank. No VB, LOF, or UC. Good FM. movement can cause a mild flare in pain No fevers or ill contacts No diarrhea, constipation, or vomiting. No loss of appetite. Pt has felt the same degree of nausea throughtout her . No dysuria, no hematuria No abnormal vaginal discharge, no new sexual partners ROS: see above PMH: --Obese --Nephrolithiasis x1 in prior --Fibroid uterus. labs note "upper segment", US notes "anterior 4.4cm" --Hypothyroid with normal labs during --Depression, anxiety, PTSD --Hx of UTIs --Hx of "back broken in 3 places" from prior vaginal delivery, chronic back pain resulted PSH: --D&C x2: one for retained POCs after , other for elective Ab --LSC salpingostomy for ectopic --Tonsills FH: no anesthesia complications SH: weekly THC use throughout . No alcohol or illicit drug use. 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 Allergies: NKDA Meds: Tylenol today. PNV, iron, and vitamin D daily. OB Hx: with care at [facility]. 2 uncomplicated at term. One IOL for at 37w for baby with gastrochesis. Ectopic & a early surgical TAB. Datin05/15/18 VIVI by 8w US off 6d from LMP Current problems: --Rh neg got rhogam on 03/03/18 --On 20w anatomy scan possible VSD and mild bilateral mild pyelectasis--these were NOT seen on follow up US at 30w. labs: see records. Hct 35 and WBC 11.9 on 03/03/18. Normal genetic and anatomy screening. Exam: AVSS. Alert, smiling. In one encounter she was standing by her bed, talking for 5min, without apparent discomfort. In another encounter she had a period of time laying on the stretcher when she was moaning a bit. No CVA tenderness. Abdomen is soft, no guarding present. Palpation in the RUQ, RLQ, and LUQ all cause referred pain to the LLQ. LLQ palpation moderately tender. Mild rebound present in LLQ only. Pt had pain when the bed was bumped. Gravid abdomen, no masses. NST is category 1, toco neg 03/27/18 labs: WBC 11.3, mildly elevated neutrophills, lymphocytes normal. Hct 29.7, plts 200 CMP normal for except for K = 3.2 UA normal, neg prot, neg blood History - POLST Patient has POLST: Yes Meds/Allgy - Home Medications Home Medications: Ambulatory Orders Medication Instructions Recorded Confirmed Metoclopramide [Reglan] 10 mg PO Q6H PRN #14 tablet 09/24/17 Acetaminophen [Tylenol] 2 tab PO Q6HR PRN 09/30/17 09/30/17 Prenatl Vit6/Iron/FA/B12/Ca/D3 1 tab PO DAILY 09/30/17 09/30/17 [Mteryti Combo Pack] Doxylamine/Pyridoxine HCl 1 each PO BID #14 tablet. 10/01/17 [Ulises Shah 10-10 mg Tablet] Hydrocodone/Acetaminophen 1 - 2 each PO Q6HR PRN #10 tablet 10/26/17 [Hydrocodon-Acetaminophen 5-325] Hydrocodone/Acetaminophen 1 - 2 each PO Q6H PRN #10 tablet 12/07/17 [Hydrocodon-Acetaminophen 5-325] - Allergies Allergies/Adverse Reactions: Allergies Allergy/AdvReac Type Severity Reaction Status Date / Time No Known Drug Allergies Allergy Verified 10/26/17 02:18 Exam - Vital Signs Vital Signs: Vital Signs x48h Temp Pulse Resp BP 03/27/18 21:44 98.8 F 80 20 128/51 L Conclusion/Plan - Problem List (1) Abdominal pain during in third trimester Conclusion/Plan: 27yo at 33w1d by 8w US with gradual then acute onset of sharp, stabbing, cramping LLQ pain. Pt with peritoneal signs with her mild rebound and discomfort with bed being moved. Pt's HCT is also low at 29 today, much lower than when it was 35 3.5 weeks ago. DDX considered: --Degenerating fibroid: pt with a 4cm fibroid at 8w, has likely grown by now, will assess by US, US will be limited by presence. --Nephrolithiasis: pt with a hx of this, this episode does not feel similar as location is different. UA without blood. No CVAT. Could be a stone coming over the pelvic brim but unlikely in abscence of hematuria. --Cystitis/pyelonephritis: unlikely, normal UA, afebrile --Appendicitis: unlikely with LLQ location--appendix generally at this point in preg is right mid abdomen. No anorexia, no fevers, no tachycardia. Degree of WBC elevation is c/w and with prior blood draw. --Chorioamnionitis: unlikely with afebrile, no fundal tenderness, no or maternal tachycardia --No GI symptoms to suggest gastroenteritis --No new sexual contacts to suggest PID, acute onset not c/w PID --Ov cyst or torsion unlikely at this point in . Will get US to eval. Had a 2cm left corpus luteal cyst on 8w US which is normal. --MSK pain: pt with hx of "broken back" from a prior vaginal delivery. She has no hx of back pain radiating to the lower abdomen but this could be a new thing. Possible pressure on nerves or muscles causing this pain but the peritoneal signs don't point to this. --Abruption: unlikely with absence of VB, UC, or maternofetal tachycardia. Plan: --Admit to obs, NPO --US to eval maternal anatomy and placenta --Serial abd exams --Recheck CBC --Continuous monitoring (2) Fibroid uterus Conclusion/Plan: see above Qualifiers: Uterine leiomyoma location: unspecified location Qualified Code(s): D25.9 - Leiomyoma of uterus, unspecified (3) Anemia affecting Conclusion/Plan: see above Qualifiers: Trimester: third trimester Qualified Code(s): O99.013 - Anemia complicating , third trimester - Lab Results Fish Bones: 03/27/18 22:42 03/27/18 22:42
[2018-03-28] MEDS: LACTATED RINGERS 1,000 ML IV SCH ×3 (00:50→20:49)
--- NOTE | 2018-03-28 01:08 | Ultrasound Report ---
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 CLINICAL HISTORY: LLQ pain, IUP at 35w, hx of 4. 4cm anterior myoma. COMPARISON: OB FIRST TRIMESTER 10/07/2017. TECHNIQUE: Real-time sonographic evaluation of the fetus performed by the passenger car cleaning supervisor. Multiple service liaison representative static images were saved for review. DATING: Established EGA 33 weeks 6 days with VIVI 05/10/2018. GENERAL EVALUATION Gray . Cardiac activity: 129 bpm. movement: Visualized. Presentation: Cephalic. Placenta: Anterior position. Amniotic fluid: Normal. MIKE 15.3 cm. MVP 5.3 cm. ANATOMY Not assessed. MATERNAL STRUCTURES Right ovary was not confidently identified. Left ovary measures 3.1 x 2.6 x 2.1 cm, and demonstrates normal flow. The previously described leiomyoma is not appreciated on today's study. IMPRESSION: 1. Gray live intrauterine with gestational age 33 weeks 6 days based on established VIVI. 2. Normal left ovary, with normal flow. Previously described leiomyoma not identified on today's study. Right ovary not identified on today's study. RADIA
[2018-03-28] MEDS ORDERED: MORPHINE 10 MG/ML VIAL IVP SCH (01:28)
[2018-03-28 03:16] LABS: BASOPHILS # (AUTO) 0.1 10^3/uL (0.0-0.1); BASOPHILS % (AUTO) 0.4 %; EOSINOPHILS # (AUTO) 0.1 10^3/uL (0.0-0.7); HGB - HEMOGLOBIN 10.9 g/dL (12.0-16.0); LYMPHOCYTES # (AUTO) 2.9 10^3/uL (1.5-3.5); MEAN CORPUSCULAR HEMOGLOBIN 30.7 pg (27.0-31.0); MEAN CORPUSCULAR HGB CONC 34.4 g/dL (32.0-36.0); MEAN CORPUSCULAR VOLUME 89.3 fL (81.0-99.0); MEAN PLATELET VOLUME 7.8 fL (7.9-10.8); MONOCYTES # (AUTO) 0.7 10^3/uL (0.0-1.0); MONOCYTES % (AUTO) 5.8 %; NEUTROPHILS # (AUTO) 8.7 10^3/uL (1.5-6.6); NEUTROPHILS % (AUTO) 69.8 %; PLT - PLATELET COUNT 219 10^3/uL (130-450); RED BLOOD COUNT 3.53 10^6/uL (4.20-5.40); RED CELL DISTRIBUTION WIDTH 14.5 % (12.0-15.0); WHITE BLOOD COUNT 12.5 x10^3/uL (4.8-10.8)
[2018-03-28] MEDS ORDERED: fentaNYL 100 MCG/2 ML VIAL ONE (03:50)
[2018-03-28] MEDS ORDERED: ACETAMINOPHEN 1,000 MG/100 ML 100 ML IV ONE (03:51)
--- NOTE | 2018-03-28 04:00 | PROVIDER PROGRESS NOTE ---
Objective - Vital Signs/Intake & Output Vital Signs: Vital Signs x48h Temp Pulse Resp BP 03/28/18 01:31 98.6 F 83 20 100/58 L 03/27/18 21:44 98.8 F 80 20 128/51 L Intake & Output: Intake & Output 03/25/18 03/26/18 03/27/18 03/28/18 23:59 23:59 23:59 23:59 Output Total 325 Balance -325 - Lab Results Fish Bones: 03/28/18 03:12 03/27/18 22:42 Other Labs: Lab Results x24hrs 03/28/18 03/27/18 03/27/18 Range/Units 03:12 22:42 22:42 WBC 12.5 H 11.3 H (4.8-10.8) x10^3/uL RBC 3.53 L 3.34 L (4.20-5.40) 10^6/uL Hgb 10.9 L 10.2 L (12.0-16.0) g/dL Hct 31.6 L 29.7 L (37.0-47.0) % MCV 89.3 88.8 (81.0-99.0) fL MCH 30.7 30.5 (27.0-31.0) pg MCHC 34.4 34.3 (32.0-36.0) g/dL RDW 14.5 14.3 (12.0-15.0) % Plt Count 219 200 (130-450) 10^3/uL MPV 7.8 L 7.9 (7.9-10.8) fL Neut # (Auto) 8.7 H 8.0 H (1.5-6.6) 10^3/uL Lymph # (Auto) 2.9 2.5 (1.5-3.5) 10^3/uL [place] # (Auto) 0.7 0.6 (0.0-1.0) 10^3/uL Eos # (Auto) 0.1 0.1 (0.0-0.7) 10^3/uL Baso # (Auto) 0.1 0.1 (0.0-0.1) 10^3/uL Absolute Nucleated RBC 0.00 0.00 x10^3/uL Nucleated RBC % 0.0 0.0 /100WBC Sodium 135 (135-145) mmol/L Potassium 3.2 L (3.5-5.0) mmol/L Chloride 108 (101-111) mmol/L Carbon Dioxide 22 (21-32) mmol/L Anion Gap 5.0 L (6-13) BUN 5 L (6-20) mg/dL Creatinine 0.5 (0.4-1.0) mg/dL Estimated GFR (MDRD) 146 (>89) Glucose 115 H (70-100) mg/dL Calcium 8.7 (8.5-10.3) mg/dL Total Bilirubin 0.4 (0.2-1.0) mg/dL AST 34 (10-42) IU/L ALT 60 (10-60) IU/L Alkaline Phosphatase 107 (42-121) IU/L Total Protein 5.9 L (6.7-8.2) g/dL Albumin 2.7 L (3.2-5.5) g/dL Globulin 3.2 (2.1-4.2) g/dL Albumin/Globulin Ratio 0.8 L (1.0-2.2) Urine Color Urine Clarity (CLEAR) Urine pH (5.0-7.5) PH Ur Specific [place] (1.002-1.030) Urine Protein (NEGATIVE) mg/dL Urine Glucose (UA) (NEGATIVE) mg/dL Urine Ketones (NEGATIVE) mg/dL Urine Occult Blood (NEGATIVE) Urine Nitrite (NEGATIVE) Urine Bilirubin (NEGATIVE) Urine Urobilinogen (NORMAL) E.U./dL Ur Leukocyte Esterase (NEGATIVE) Urine RBC (0-5) /HPF Urine WBC (0-5) /HPF Ur Squamous Epith Cells (<= Few) Urine Bacteria (None Seen) /HPF Urine Culture Comments 03/27/18 Range/Units 21:45 WBC (4.8-10.8) x10^3/uL RBC (4.20-5.40) 10^6/uL Hgb (12.0-16.0) g/dL Hct (37.0-47.0) % MCV (81.0-99.0) fL MCH (27.0-31.0) pg MCHC (32.0-36.0) g/dL RDW (12.0-15.0) % Plt Count (130-450) 10^3/uL MPV (7.9-10.8) fL Neut # (Auto) (1.5-6.6) 10^3/uL Lymph # (Auto) (1.5-3.5) 10^3/uL [place] # (Auto) (0.0-1.0) 10^3/uL Eos # (Auto) (0.0-0.7) 10^3/uL Baso # (Auto) (0.0-0.1) 10^3/uL Absolute Nucleated RBC x10^3/uL Nucleated RBC % /100WBC Sodium (135-145) mmol/L Potassium (3.5-5.0) mmol/L Chloride (101-111) mmol/L Carbon Dioxide (21-32) mmol/L Anion Gap (6-13) BUN (6-20) mg/dL Creatinine (0.4-1.0) mg/dL Estimated GFR (MDRD) (>89) Glucose (70-100) mg/dL Calcium (8.5-10.3) mg/dL Total Bilirubin (0.2-1.0) mg/dL AST (10-42) IU/L ALT (10-60) IU/L Alkaline Phosphatase (42-121) IU/L Total Protein (6.7-8.2) g/dL Albumin (3.2-5.5) g/dL Globulin (2.1-4.2) g/dL Albumin/Globulin Ratio (1.0-2.2) Urine Color YELLOW Urine Clarity CLEAR (CLEAR) Urine pH 6.0 (5.0-7.5) PH Ur Specific [place] 1.020 (1.002-1.030) Urine Protein NEGATIVE (NEGATIVE) mg/dL Urine Glucose (UA) NEGATIVE (NEGATIVE) mg/dL Urine Ketones NEGATIVE (NEGATIVE) mg/dL Urine Occult Blood NEGATIVE (NEGATIVE) Urine Nitrite NEGATIVE (NEGATIVE) Urine Bilirubin NEGATIVE (NEGATIVE) Urine Urobilinogen 0.2 (NORMAL) (NORMAL) E.U./dL Ur Leukocyte Esterase NEGATIVE (NEGATIVE) Urine RBC None Seen (0-5) /HPF Urine WBC 0-3 (0-5) /HPF Ur Squamous Epith Cells MOD Squamous H (<= Few) Urine Bacteria None Seen (None Seen) /HPF Urine Culture Comments NOT INDICATED Assessment/Plan - Problem List (1) Abdominal pain during in third trimester Impression: S: pain is still there, morphine didn't help. Doesn't feel worse than before --just still the same which is starting to "break me down". Pain is now coming more with a background level then with flares/waves of pain. Otherwise no changes. O: AVSS Mild rebound present LLQ, not any worse than before. Pt is NOT uncomfortable when MD suddenly moves the bed. Reports that she knows that there is movement and that feels different but that it is not more painful. WBC 11-->12, Hct 29-->31 Category 1 NST [place] neg A/P: 01/20 abd pain in , reassuring FWB. See H&P. Most likely causes currently are --Degenerating fibroid --Nephrolithiasis especially consider possible stone coming over the pelvic brim Discussed options for mgmt, this pain is not usual or typical, she is and if this is affecting the /baby then she would benefit from being at a higher level nursery. Also would benefit from MFM consult if pain persists. Pt has option of seeking MFM opinion now or of waiting a few hours and seeing. Pt does not have a feeling of dread and would like to wait here and see. Will give fentanyl to see if she gets better pain relief--briefly at least to break this cycle of pain. Recheck abdominal exam later--if pain and tenderness are not improved then consider getting MFM involved. --Improved Hct is reassuring--doubt internal bleeding --WBC slightly worse, pt is very stressed which could contribute, VS/HR/temp are still normal. (2) Fibroid uterus Qualifiers: Uterine leiomyoma location: unspecified location Qualified Code(s): D25.9 - Leiomyoma of uterus, unspecified (3) Anemia affecting Qualifiers: Trimester: third trimester Qualified Code(s): O99.013 - Anemia complicating , third trimester
[2018-03-28] MEDS: fentaNYL 100 MCG/2 ML VIAL IVP PRN ×3 (04:05→12:00)
[2018-03-28] MEDS: ONDANSETRON 4 MG/2 ML VIAL IVP PRN ×3 (04:20→19:52)
[2018-03-28] MEDS ORDERED: oxyCODONE 5 MG TABLET PO SCH (09:15)
[2018-03-28] MEDS ORDERED: LACTATED RINGERS 500 ML IV ONE (09:17)
--- NOTE | 2018-03-28 09:23 | PROVIDER PROGRESS NOTE ---
Objective - Vital Signs/Intake & Output Vital Signs: Vital Signs x48h Temp Pulse Resp BP Pulse Ox 03/28/18 09:00 98.2 F 72 16 90/60 990 H 03/28/18 08:09 70 84/54 L 03/28/18 08:08 97.9 F 70 20 92/48 L 98 03/28/18 06:00 98.6 F 62 18 90/50 L 03/28/18 04:00 98.4 F 78 20 71/50 L 03/28/18 02:15 97.9 F 69 20 103/50 L 03/28/18 01:31 98.6 F 83 20 100/58 L Intake & Output: Intake & Output 03/25/18 03/26/18 03/27/18 03/28/18 23:59 23:59 23:59 23:59 Intake Total 2077.5 Output Total 325 Balance 1752.5 - Lab Results Fish Bones: 03/28/18 03:12 03/27/18 22:42 Other Labs: Lab Results x24hrs 03/28/18 03/27/18 03/27/18 Range/Units 03:12 22:42 22:42 WBC 12.5 H 11.3 H (4.8-10.8) x10^3/uL RBC 3.53 L 3.34 L (4.20-5.40) 10^6/uL Hgb 10.9 L 10.2 L (12.0-16.0) g/dL Hct 31.6 L 29.7 L (37.0-47.0) % MCV 89.3 88.8 (81.0-99.0) fL MCH 30.7 30.5 (27.0-31.0) pg MCHC 34.4 34.3 (32.0-36.0) g/dL RDW 14.5 14.3 (12.0-15.0) % Plt Count 219 200 (130-450) 10^3/uL MPV 7.8 L 7.9 (7.9-10.8) fL Neut # (Auto) 8.7 H 8.0 H (1.5-6.6) 10^3/uL Lymph # (Auto) 2.9 2.5 (1.5-3.5) 10^3/uL [place] # (Auto) 0.7 0.6 (0.0-1.0) 10^3/uL Eos # (Auto) 0.1 0.1 (0.0-0.7) 10^3/uL Baso # (Auto) 0.1 0.1 (0.0-0.1) 10^3/uL Absolute Nucleated RBC 0.00 0.00 x10^3/uL Nucleated RBC % 0.0 0.0 /100WBC Sodium 135 (135-145) mmol/L Potassium 3.2 L (3.5-5.0) mmol/L Chloride 108 (101-111) mmol/L Carbon Dioxide 22 (21-32) mmol/L Anion Gap 5.0 L (6-13) BUN 5 L (6-20) mg/dL Creatinine 0.5 (0.4-1.0) mg/dL Estimated GFR (MDRD) 146 (>89) Glucose 115 H (70-100) mg/dL Calcium 8.7 (8.5-10.3) mg/dL Total Bilirubin 0.4 (0.2-1.0) mg/dL AST 34 (10-42) IU/L ALT 60 (10-60) IU/L Alkaline Phosphatase 107 (42-121) IU/L Total Protein 5.9 L (6.7-8.2) g/dL Albumin 2.7 L (3.2-5.5) g/dL Globulin 3.2 (2.1-4.2) g/dL Albumin/Globulin Ratio 0.8 L (1.0-2.2) Urine Color Urine Clarity (CLEAR) Urine pH (5.0-7.5) PH Ur Specific [place] (1.002-1.030) Urine Protein (NEGATIVE) mg/dL Urine Glucose (UA) (NEGATIVE) mg/dL Urine Ketones (NEGATIVE) mg/dL Urine Occult Blood (NEGATIVE) Urine Nitrite (NEGATIVE) Urine Bilirubin (NEGATIVE) Urine Urobilinogen (NORMAL) E.U./dL Ur Leukocyte Esterase (NEGATIVE) Urine RBC (0-5) /HPF Urine WBC (0-5) /HPF Ur Squamous Epith Cells (<= Few) Urine Bacteria (None Seen) /HPF Urine Culture Comments 03/27/18 Range/Units 21:45 WBC (4.8-10.8) x10^3/uL RBC (4.20-5.40) 10^6/uL Hgb (12.0-16.0) g/dL Hct (37.0-47.0) % MCV (81.0-99.0) fL MCH (27.0-31.0) pg MCHC (32.0-36.0) g/dL RDW (12.0-15.0) % Plt Count (130-450) 10^3/uL MPV (7.9-10.8) fL Neut # (Auto) (1.5-6.6) 10^3/uL Lymph # (Auto) (1.5-3.5) 10^3/uL [place] # (Auto) (0.0-1.0) 10^3/uL Eos # (Auto) (0.0-0.7) 10^3/uL Baso # (Auto) (0.0-0.1) 10^3/uL Absolute Nucleated RBC x10^3/uL Nucleated RBC % /100WBC Sodium (135-145) mmol/L Potassium (3.5-5.0) mmol/L Chloride (101-111) mmol/L Carbon Dioxide (21-32) mmol/L Anion Gap (6-13) BUN (6-20) mg/dL Creatinine (0.4-1.0) mg/dL Estimated GFR (MDRD) (>89) Glucose (70-100) mg/dL Calcium (8.5-10.3) mg/dL Total Bilirubin (0.2-1.0) mg/dL AST (10-42) IU/L ALT (10-60) IU/L Alkaline Phosphatase (42-121) IU/L Total Protein (6.7-8.2) g/dL Albumin (3.2-5.5) g/dL Globulin (2.1-4.2) g/dL Albumin/Globulin Ratio (1.0-2.2) Urine Color YELLOW Urine Clarity CLEAR (CLEAR) Urine pH 6.0 (5.0-7.5) PH Ur Specific [place] 1.020 (1.002-1.030) Urine Protein NEGATIVE (NEGATIVE) mg/dL Urine Glucose (UA) NEGATIVE (NEGATIVE) mg/dL Urine Ketones NEGATIVE (NEGATIVE) mg/dL Urine Occult Blood NEGATIVE (NEGATIVE) Urine Nitrite NEGATIVE (NEGATIVE) Urine Bilirubin NEGATIVE (NEGATIVE) Urine Urobilinogen 0.2 (NORMAL) (NORMAL) E.U./dL Ur Leukocyte Esterase NEGATIVE (NEGATIVE) Urine RBC None Seen (0-5) /HPF Urine WBC 0-3 (0-5) /HPF Ur Squamous Epith Cells MOD Squamous H (<= Few) Urine Bacteria None Seen (None Seen) /HPF Urine Culture Comments NOT INDICATED Assessment/Plan - Problem List (1) Abdominal pain during in third trimester Impression: S: feeling the same as before, no real change. Noticed some orange color of the urine. Was able to sleep for 2h but then the pain came back after the meds wore off. O: AVSS, Cat 1 NST, toco neg. Alert, frowning, resting, NAD Abd soft, tender to the same degree in LLQ. No rebound or guarding. A/P: 27yo at 33w1d by 8w US with gradual then acute onset of sharp, stabbing, cramping LLQ pain. Pt with peritoneal signs with her mild rebound and discomfort with bed being moved on admission but that has improved with this most recent exam. Tenderness persists. Otherwise no change in the quality or severity of pain. Picture points most strongly towards kidney stone or degenerating fibroid. D/w MFM at who suggested a round of po narcotics to see if that would break the cycle. Will re-send UA as there may be blood in it now. Recheck CBC around noon to see if there is any change in WBC or RBC. Continue NPO. FWB is very reassuring--Cat 1 NST throughout--doubt any placental problem. Expectant mgmt. (2) Fibroid uterus Qualifiers: Uterine leiomyoma location: unspecified location Qualified Code(s): D25.9 - Leiomyoma of uterus, unspecified (3) Anemia affecting Qualifiers: Trimester: third trimester Qualified Code(s): O99.013 - Anemia complicating , third trimester
[2018-03-28] MEDS: ACETAMINOPHEN 1,000 MG/100 ML 100 ML IV SCH ×2 (09:34→18:39)
[2018-03-28 09:56] LABS: BILIRUBIN,URINE NEGATIVE (NEGATIVE); GLUCOSE, URINE (UA) NEGATIVE (NEGATIVE); KETONES,URINE (UA) NEGATIVE (NEGATIVE); LEUKOCYTE ESTERASE, URINE NEGATIVE (NEGATIVE); NITRITE,URINE NEGATIVE (NEGATIVE); OCCULT BLOOD,URINE NEGATIVE (NEGATIVE); PROTEIN,URINE NEGATIVE (NEGATIVE); UROBILINOGEN,URINE 0.2 (NORMAL) E.U./dL (NORMAL)
[2018-03-28 10:08] LABS: BACTERIA,URINE Few /HPF (None Seen); CLARITY,URINE CLEAR (CLEAR); RBC,URINE 0-5 /HPF (0-5); SQUAMOUS EPITHELIAL CELL,UR FEW Squamous (<= Few)
[2018-03-28] MEDS ORDERED: LACTATED RINGERS 1,000 ML IV ONE ×3 (11:38→16:26)
[2018-03-28 13:45] LABS: BASOPHILS % (AUTO) 0.4 %; EOSINOPHILS # (AUTO) 0.1 10^3/uL (0.0-0.7); HGB - HEMOGLOBIN 10.7 g/dL (12.0-16.0); LYMPHOCYTES # (AUTO) 2.4 10^3/uL (1.5-3.5); MEAN CORPUSCULAR HEMOGLOBIN 30.8 pg (27.0-31.0); MEAN CORPUSCULAR HGB CONC 34.4 g/dL (32.0-36.0); MEAN CORPUSCULAR VOLUME 89.5 fL (81.0-99.0); MEAN PLATELET VOLUME 8.2 fL (7.9-10.8); MONOCYTES # (AUTO) 0.5 10^3/uL (0.0-1.0); MONOCYTES % (AUTO) 5.2 %; NEUTROPHILS # (AUTO) 7.1 10^3/uL (1.5-6.6); NEUTROPHILS % (AUTO) 69.4 %; PLT - PLATELET COUNT 211 10^3/uL (130-450); RED BLOOD COUNT 3.46 10^6/uL (4.20-5.40); RED CELL DISTRIBUTION WIDTH 14.2 % (12.0-15.0); WHITE BLOOD COUNT 10.2 x10^3/uL (4.8-10.8)
[2018-03-28] MEDS ORDERED: HYDROmorphone 2 MG/ML VIAL IVP PRN (15:44)
--- NOTE | 2018-03-28 15:44 | PROVIDER PROGRESS NOTE ---
Objective - Vital Signs/Intake & Output Vital Signs: Vital Signs x48h Temp Pulse Resp BP Pulse Ox 03/28/18 13:10 98.4 F 58 L 17 106/42 L 94 03/28/18 11:53 98.6 F 67 16 94/46 L 99 03/28/18 09:00 98.2 F 72 16 90/60 990 H 03/28/18 08:09 70 84/54 L 03/28/18 08:08 97.9 F 70 20 92/48 L 98 Intake & Output: Intake & Output 03/25/18 03/26/18 03/27/18 03/28/18 23:59 23:59 23:59 23:59 Intake Total 2077.5 Output Total 865 Balance 1212.5 - Lab Results Fish Bones: 03/28/18 13:34 03/27/18 22:42 Other Labs: Lab Results x24hrs 03/28/18 03/28/18 03/28/18 Range/Units 13:34 09:15 03:12 WBC 10.2 12.5 H (4.8-10.8) x10^3/uL RBC 3.46 L 3.53 L (4.20-5.40) 10^6/uL Hgb 10.7 L 10.9 L (12.0-16.0) g/dL Hct 31.0 L 31.6 L (37.0-47.0) % MCV 89.5 89.3 (81.0-99.0) fL MCH 30.8 30.7 (27.0-31.0) pg MCHC 34.4 34.4 (32.0-36.0) g/dL RDW 14.2 14.5 (12.0-15.0) % Plt Count 211 219 (130-450) 10^3/uL MPV 8.2 7.8 L (7.9-10.8) fL Neut # (Auto) 7.1 H 8.7 H (1.5-6.6) 10^3/uL Lymph # (Auto) 2.4 2.9 (1.5-3.5) 10^3/uL [place] # (Auto) 0.5 0.7 (0.0-1.0) 10^3/uL Eos # (Auto) 0.1 0.1 (0.0-0.7) 10^3/uL Baso # (Auto) 0.0 0.1 (0.0-0.1) 10^3/uL Absolute Nucleated RBC 0.00 0.00 x10^3/uL Nucleated RBC % 0.0 0.0 /100WBC Sodium (135-145) mmol/L Potassium (3.5-5.0) mmol/L Chloride (101-111) mmol/L Carbon Dioxide (21-32) mmol/L Anion Gap (6-13) BUN (6-20) mg/dL Creatinine (0.4-1.0) mg/dL Estimated GFR (MDRD) (>89) Glucose (70-100) mg/dL Calcium (8.5-10.3) mg/dL Total Bilirubin (0.2-1.0) mg/dL AST (10-42) IU/L ALT (10-60) IU/L Alkaline Phosphatase (42-121) IU/L Total Protein (6.7-8.2) g/dL Albumin (3.2-5.5) g/dL Globulin (2.1-4.2) g/dL Albumin/Globulin Ratio (1.0-2.2) Urine Color YELLOW Urine Clarity CLEAR (CLEAR) Urine pH 6.0 (5.0-7.5) PH Ur Specific [place] 1.025 (1.002-1.030) Urine Protein NEGATIVE (NEGATIVE) mg/dL Urine Glucose (UA) NEGATIVE (NEGATIVE) mg/dL Urine Ketones NEGATIVE (NEGATIVE) mg/dL Urine Occult Blood NEGATIVE (NEGATIVE) Urine Nitrite NEGATIVE (NEGATIVE) Urine Bilirubin NEGATIVE (NEGATIVE) Urine Urobilinogen 0.2 (NORMAL) (NORMAL) E.U./dL Ur Leukocyte Esterase NEGATIVE (NEGATIVE) Urine RBC 0-5 (0-5) /HPF Urine WBC 0-3 (0-5) /HPF Ur Squamous Epith Cells FEW Squamous (<= Few) Urine Bacteria Few (None Seen) /HPF Urine Culture Comments 03/27/18 03/27/18 03/27/18 Range/Units 22:42 22:42 21:45 WBC 11.3 H (4.8-10.8) x10^3/uL RBC 3.34 L (4.20-5.40) 10^6/uL Hgb 10.2 L (12.0-16.0) g/dL Hct 29.7 L (37.0-47.0) % MCV 88.8 (81.0-99.0) fL MCH 30.5 (27.0-31.0) pg MCHC 34.3 (32.0-36.0) g/dL RDW 14.3 (12.0-15.0) % Plt Count 200 (130-450) 10^3/uL MPV 7.9 (7.9-10.8) fL Neut # (Auto) 8.0 H (1.5-6.6) 10^3/uL Lymph # (Auto) 2.5 (1.5-3.5) 10^3/uL [place] # (Auto) 0.6 (0.0-1.0) 10^3/uL Eos # (Auto) 0.1 (0.0-0.7) 10^3/uL Baso # (Auto) 0.1 (0.0-0.1) 10^3/uL Absolute Nucleated RBC 0.00 x10^3/uL Nucleated RBC % 0.0 /100WBC Sodium 135 (135-145) mmol/L Potassium 3.2 L (3.5-5.0) mmol/L Chloride 108 (101-111) mmol/L Carbon Dioxide 22 (21-32) mmol/L Anion Gap 5.0 L (6-13) BUN 5 L (6-20) mg/dL Creatinine 0.5 (0.4-1.0) mg/dL Estimated GFR (MDRD) 146 (>89) Glucose 115 H (70-100) mg/dL Calcium 8.7 (8.5-10.3) mg/dL Total Bilirubin 0.4 (0.2-1.0) mg/dL AST 34 (10-42) IU/L ALT 60 (10-60) IU/L Alkaline Phosphatase 107 (42-121) IU/L Total Protein 5.9 L (6.7-8.2) g/dL Albumin 2.7 L (3.2-5.5) g/dL Globulin 3.2 (2.1-4.2) g/dL Albumin/Globulin Ratio 0.8 L (1.0-2.2) Urine Color YELLOW Urine Clarity CLEAR (CLEAR) Urine pH 6.0 (5.0-7.5) PH Ur Specific [place] 1.020 (1.002-1.030) Urine Protein NEGATIVE (NEGATIVE) mg/dL Urine Glucose (UA) NEGATIVE (NEGATIVE) mg/dL Urine Ketones NEGATIVE (NEGATIVE) mg/dL Urine Occult Blood NEGATIVE (NEGATIVE) Urine Nitrite NEGATIVE (NEGATIVE) Urine Bilirubin NEGATIVE (NEGATIVE) Urine Urobilinogen 0.2 (NORMAL) (NORMAL) E.U./dL Ur Leukocyte Esterase NEGATIVE (NEGATIVE) Urine RBC None Seen (0-5) /HPF Urine WBC 0-3 (0-5) /HPF Ur Squamous Epith Cells MOD Squamous H (<= Few) Urine Bacteria None Seen (None Seen) /HPF Urine Culture Comments NOT INDICATED Assessment/Plan - Problem List (1) Abdominal pain during in third trimester Impression: S: no changes. Narcs help the pain for a while and then it comes back to the same level as before. Had emesis after fentanyl was given. O: AVSS Alert, NAD Abd soft, no guarding. Same degree of tenderness present in LLQ. Rebound has returned same degree as at admission at midnight. Category 1 NST, toco neg UA #2 was normal CBC #3 was stable--WBC and Hct slightly lower. No left shift. A/P: LLQ pain, colicy, with mild peritoneal signs. No change in clinical picture for the past 15h--no worsening pain, no fevers, no tachycardia, no change in labs, FWB continues to be reassuring. This is reassuring for likely absence of infection or of -related problems like abruption. D/w MFM again. Will start tx for probable nephrolithiasis (my clinical impression). Consider transport PRN worsening or PRN ongoing pain. --Flomax now. Considered nifedipine which can be more effective but pt's BPs are low post narcotics. --IVF bolus now --Strain urine --Get renal US which will likely show a degree of hydro c/w prenancy but may reveal something more significant. --Scheduled IV tylenol. Oxycodone to try to blanket pain better. Switch to dilaudid for breakthrough pain. related complication is unlikely after 18h of category 1 monitoring and neg toco and absence of UC/VB/LOF. --Intermittent NST (2) Fibroid uterus Qualifiers: Uterine leiomyoma location: unspecified location Qualified Code(s): D25.9 - Leiomyoma of uterus, unspecified (3) Anemia affecting Qualifiers: Trimester: third trimester Qualified Code(s): O99.013 - Anemia complicating , third trimester
[2018-03-28] MEDS: TAMSULOSIN 0.4 MG CAPSULE PO SCH ×2 (16:50→18:46)
[2018-03-28 17:40] LABS: BILIRUBIN,URINE NEGATIVE (NEGATIVE); GLUCOSE, URINE (UA) NEGATIVE (NEGATIVE); KETONES,URINE (UA) 15 mg/dL (NEGATIVE); LEUKOCYTE ESTERASE, URINE NEGATIVE (NEGATIVE); NITRITE,URINE NEGATIVE (NEGATIVE); OCCULT BLOOD,URINE NEGATIVE (NEGATIVE); PROTEIN,URINE NEGATIVE (NEGATIVE); UROBILINOGEN,URINE 0.2 (NORMAL) E.U./dL (NORMAL)
--- NOTE | 2018-03-28 17:44 | Ultrasound Report ---
Reason: LLQ pain eval for hydronephrosis maternal Procedure Date: 03/28/2018 Accession Number: [id number] / [id number] Procedure: US - Abdomen Limited CPT Code: FULL RESULT: EXAM: ABDOMEN ULTRASOUND LIMITED EXAM DATE: 03/28/2018 04:55 PM. CLINICAL HISTORY: Left lower quadrant pain, evaluate for hydronephrosis maternal. COMPARISON: None. TECHNIQUE: Real-time scanning was performed with static images obtained. FINDINGS: Focused evaluation of the left lower quadrant demonstrates no evidence of fluid collection. No abdominal wall mass or hernia seen. IMPRESSION: No left lower quadrant fluid collection, mass or hernia. RADIA
[2018-03-28 17:48] LABS: BACTERIA,URINE Many /HPF (None Seen); CLARITY,URINE CLEAR (CLEAR); RBC,URINE 0-5 /HPF (0-5); SQUAMOUS EPITHELIAL CELL,UR MANY Squamous (<= Few)
[2018-03-28] MEDS ORDERED: SODIUM CHLORIDE FLUSH 0.9% 10 ML SYRINGE ONE (17:48)
--- NOTE | 2018-03-28 17:48 | Ultrasound Report ---
Reason: LLQ pain Procedure Date: 03/28/2018 Accession Number: [id number] / [id number] Procedure: US - Retroperitoneal Limited CPT Code: FULL RESULT: EXAM: RENAL ULTRASOUND EXAM DATE: 03/28/2018 04:54 PM. CLINICAL HISTORY: LLQ pain. COMPARISON: None. TECHNIQUE: Real-time scanning was performed with static images obtained. FINDINGS: Exam Limited to the left kidney. The left kidney measures 12.67 cm longitudinally and demonstrates normal echotexture. No evidence of stone, contour deforming mass or hydronephrosis. IMPRESSION: No evidence of left hydronephrosis. RADIA
[2018-03-28] MEDS: oxyCODONE 5 MG TABLET PO PRN ×2 (18:43→23:24)
[2018-03-28] MEDS: HYDROmorphone 1 MG/ML CARPUJECT IVP PRN ×2 (19:45→21:52)
[2018-03-28 21:33] LABS: BASOPHILS % (AUTO) 0.4 %; EOSINOPHILS # (AUTO) 0.1 10^3/uL (0.0-0.7); EOSINOPHILS % (AUTO) 1.2 %; HGB - HEMOGLOBIN 10.6 g/dL (12.0-16.0); LYMPHOCYTES # (AUTO) 2.8 10^3/uL (1.5-3.5); LYMPHOCYTES % (AUTO) 24.5 %; MEAN CORPUSCULAR HEMOGLOBIN 29.9 pg (27.0-31.0); MEAN CORPUSCULAR HGB CONC 33.3 g/dL (32.0-36.0); MEAN CORPUSCULAR VOLUME 89.8 fL (81.0-99.0); MEAN PLATELET VOLUME 8.6 fL (7.9-10.8); MONOCYTES # (AUTO) 0.5 10^3/uL (0.0-1.0); MONOCYTES % (AUTO) 4.7 %; NEUTROPHILS # (AUTO) 7.8 10^3/uL (1.5-6.6); NEUTROPHILS % (AUTO) 69.2 %; PLT - PLATELET COUNT 210 10^3/uL (130-450); RED BLOOD COUNT 3.54 10^6/uL (4.20-5.40); RED CELL DISTRIBUTION WIDTH 14.6 % (12.0-15.0); WHITE BLOOD COUNT 11.3 x10^3/uL (4.8-10.8)
--- NOTE | 2018-03-28 21:50 | DISCHARGE TRANSFER SUMMARY ---
Transfer Summary Code Status: Attempt Resuscitation Condition at Discharge: Stable - ALLERGIES Allergies/Adverse Reactions: Allergies Allergy/AdvReac Type Severity Reaction Status Date / Time No Known Drug Allergies Allergy Verified 10/26/17 02:18 - MEDICATIONS Home Medications: Ambulatory Orders Medication Instructions Recorded Confirmed Metoclopramide [Reglan] 10 mg PO Q6H PRN #14 tablet 09/24/17 Acetaminophen [Tylenol] 2 tab PO Q6HR PRN 09/30/17 09/30/17 Prenatl Vit6/Iron/FA/B12/Ca/D3 1 tab PO DAILY 09/30/17 09/30/17 [Mteryti Combo Pack] Doxylamine/Pyridoxine HCl 1 each PO BID #14 tablet. 10/01/17 [Ulises Shah 10-10 mg Tablet] Hydrocodone/Acetaminophen 1 - 2 each PO Q6HR PRN #10 tablet 10/26/17 [Hydrocodon-Acetaminophen 5-325] Hydrocodone/Acetaminophen 1 - 2 each PO Q6H PRN #10 tablet 12/07/17 [Hydrocodon-Acetaminophen 5-325] - LABS Result Diagrams: 03/28/18 21:25 03/28/18 21:25 - FOLLOW UP Follow Up: Transfer note Date of admission 03/27/18 Date of transfer 03/29/18 Admission diagnosis: 1) IUP at 33w5d 2) LLQ pain 3) abdominal pain in Transfer diagnosis 1) IUP at 33w6d 2) LLQ pain, likely nephrolithiasis 3) abdominal pain in 4) leukorrhea Imaging: limited OB ultrasound, limited abdominal ultrasound Hospital course: Pt was admitted for LLQ pain of unclear origin. It was 7/10 and colicy, quality was both sharp and crampy. Patient was admitted for obse rvation and serial abdominal exams. Abdominal findings varied over time. Pt had intermittent mild rebound only in the LLQ (her rebound completely resolved this morning and returned to the same degree this afternoon as it had been on admission). She maintained LLQ tenderness throughout my exams. She never had guarding or rigidity. She remained afebrile with normal vital signs. CBC was checked 4x with mildly elevated WBC c/w and not worsening with time. No left shift. Imaging revealed a vertex fetus, normal placenta, normal left ovary with normal doppler flow, normal left kidney, no left inguinal hernia. UA and CMP were normal. UA was repeated 2x more without blood seen in the sample. Pt received treatment for presumptive nephrolithiasis vs. degenerating fibroid--pain control, flomax x1 dose, and IVF bolus. Early this evening she had a nearly complete resolution of her pain. She had received IV dilaudid 2h earlier so we kept her in-house to see if her pain would flare once the narcotics were metabolized. She had an abrupt flare in pain again about 1h after this which further suggested nephrolithiasis. She was kept inpatient for pain management. With that likely diagnosis her monitoring was changed to bid and we started clear fluids po. Pt has had intermittent vomiting shortly after administration of IV narcotics but not at other times. Narcotics were changed from morphine to fentanyl to dilaudid with all of them causing the same degree of emesis. No diarrhea present. Antiemetic changed from zofran to phenergen. At 21:00 patient was coughing and she had a sensation of ROM. RN checked and saw "a puddle" of clear fluid, nitrizine positive. ROM-plus test collected without a speculum by RN and it was negative. Speculum exam done by myself: normal EFG and vagina. negative pooling, negative valsalva, negative ferning, negative nitrizine. Bedside ultrasound: vertex presentation, MIKE 15.3, MVP 5.1. Pt does not have UC or VB. Having good FM. Category 1 NST throughout her hospitalization and has never had tachycardia. [place] is still negative. Rapid GBS, GBS culture, gc/ct, and wet mount sent. ROM-plus test was repeated with another negative result. I think that the patient likely had an episode of UI, possibly with blood in the urine that turned the nitrizine blue. But sampling the vaginal discharge itself revealed nitrizine negative and there are no other findings to suggest ROM. This episode was frightening to the patient and to the family and at this point they would prefer to get a [facility] opinion about her clinical situation. Transfer destination: [facility] Transfer method: ground Outstanding labs: GBS rapid and culture, gc/ct, wet mount
[2018-03-28 21:52] LABS: ALBUMIN 2.8 g/dL (3.2-5.5); ALBUMIN/GLOBULIN RATIO 0.8 (1.0-2.2); ALKALINE PHOSPHATASE 118 IU/L (42-121); ALT ALANINE AMINOTRANSFERASE 64 IU/L (10-60); AST ASPARTATE AMINOTRANSFERASE 45 IU/L (10-42); BILIRUBIN,TOTAL 0.3 mg/dL (0.2-1.0); BUN - BLOOD UREA NITROGEN < 5 mg/dL (6-20); CALCIUM 8.4 mg/dL (8.5-10.3); CARBON DIOXIDE - CO2 22 mmol/L (21-32); CHLORIDE 105 mmol/L (101-111); CREATININE 0.4 mg/dL (0.4-1.0); GFR - MDRD 189 (>89); GLUCOSE 82 mg/dL (70-100); SODIUM 135 mmol/L (135-145); TOTAL PROTEIN 6.2 g/dL (6.7-8.2)
[2018-03-28 22:08] LABS: RUPTURE OF MEMBRANES PLUS NEGATIVE (NEGATIVE)
[2018-03-28] MEDS ORDERED: PROMETHAZINE INJ 12.5 MG in SODIUM CHLORIDE 0.9% 50 ML IV PRN (22:34)
[2018-03-28 22:56] LABS: RUPTURE OF MEMBRANES PLUS NEGATIVE (NEGATIVE)
[2018-03-29] MEDS: ACETAMINOPHEN 1,000 MG/100 ML 100 ML IV SCH (02:13)
[2018-03-29] MEDS: HYDROmorphone 1 MG/ML CARPUJECT IVP PRN (02:48)
[2018-03-29] MEDS: ONDANSETRON 4 MG/2 ML VIAL IVP PRN (03:05)
[2018-03-29] MEDS: oxyCODONE 5 MG TABLET PO PRN (03:06)
[2018-03-29 03:14] VITALS: BP 88/52
== END 2018-03-29 03:10 | disposition short-term general hospital (02) ==
LOC: WFO 21:26 → FBP 21:27 → WFO 23:30 → FBP 23:35
PROVIDERS: ADMIT Obstetrics & Gynecology; ATTEND Obstetrics & Gynecology
DX: O99.89 Other specified diseases and conditions complicating pregnancy, childbirth and the puerperium (principal); R10.32 Left lower quadrant pain; R25.3 Fasciculation; N89.8 Other specified noninflammatory disorders of vagina; O34.13 Maternal care for benign tumor of corpus uteri, third trimester; D25.9 Leiomyoma of uterus, unspecified; O99.013 Anemia complicating pregnancy, third trimester; Z3A.33 33 weeks gestation of pregnancy
CPT/HCPCS: 36415; 76705; 76775; 76815; 80053; 81001; 84112; 85025; 86850; 86870; 86900; 86901; 87210; 87491; 87591; 87797; 96361; 96365; 96366; 96367; 96375; 96376; 99213; A9270; G0378; J0131; J1170; J7120; 87081; 87086

== ENCOUNTER 2018-11-08 08:58 | Outpatient (CLI) | payer MEDICAID | END 2018-11-08 08:59 | disposition critical access hospital (66) | LOC: EMS 08:58 | PROVIDERS: ATTEND Surgery | DX: R10.30 Lower abdominal pain, unspecified (principal); R11.2 Nausea with vomiting, unspecified; K62.5 Hemorrhage of anus and rectum | CPT/HCPCS: A0425; A0427; A0999 ==

== ENCOUNTER 2018-11-08 09:36 | Emergency (ER) | payer MEDICAID ==
--- NOTE | 2018-11-08 10:15 | ED Physician Documentation ---
PD HPI ABD PAIN - Stated complaint Stated Complaint: ABD PX - Chief complaint Chief Complaint: Abd Pain - History obtained from History obtained from: Patient, EMS - History of Present Illness Timing - onset: How many days ago (4) Timing - duration: Days (4) Timing - details: Gradual onset, Still present Quality: Sharp, Pain Location: LLQ Improved by: BM Worsened by: Moving, Position, Palpation Associated symptoms: Nausea, Vomiting, Diarrhea, Other (BRBPR) Similar symptoms before: Has not had sx before Recently seen: Clinic - Additional information Additional information: 28-year-old female has had an IUD placed 3 weeks ago and she has developed some pelvic cramping which she felt was associated with the IUD. Over the past 4 da ys she has developed some left lower quadrant abdominal pain and this is persisted and worsened she is having some trouble with her bowel movements and getting relief with a bowel movement. She has developed some bleeding and has had bright red blood per rectum. She denies any hemorrhoids. 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 , Ovarian cysts : Kidney stones, Other HEENT: None Psych: Anxiety, Post traumatic stress disorder Musculoskeletal: Chronic back pain Derm: None - Past Surgical History Past Surgical History: Yes /BUTTON GRADER: Dilation and currettage HEENT: Tonsil/Adenoidectomy - Present Medications Home Medications: Ambulatory Orders Medication Instructions Recorded Confirmed Metoclopramide [Reglan] 10 mg PO Q6H PRN #14 tablet 09/24/17 Acetaminophen [Tylenol] 2 tab PO Q6HR PRN 09/30/17 09/30/17 Prenatl Vit6/Iron/FA/B12/Ca/D3 1 tab PO DAILY 09/30/17 09/30/17 [Mteryti Combo Pack] Doxylamine/Pyridoxine HCl 1 each PO BID #14 tablet. 10/01/17 [Ulises Shah 10-10 mg Tablet] Hydrocodone/Acetaminophen 1 - 2 each PO Q6HR PRN #10 tablet 10/26/17 [Hydrocodon-Acetaminophen 5-325] Hydrocodone/Acetaminophen 1 - 2 each PO Q6H PRN #10 tablet 12/07/17 [Hydrocodon-Acetaminophen 5-325] Hydrocodone/Acetaminophen 1 - 2 each PO Q6H PRN #14 tablet 11/08/18 [Hydrocodon-Acetaminophen 5-325] - Allergies Allergies/Adverse Reactions: Allergies Allergy/AdvReac Type Severity Reaction Status Date / Time No Known Drug Allergies Allergy Verified 11/08/18 09:50 - Social History Does the pt smoke?: No Smoking Status: Never smoker Does the pt drink ETOH?: Yes ETOH Use: Wine, Beer, Liquor Does the pt have substance abuse?: No Substance Use and Type: Marijuana - Immunizations Immunizations are current?: Yes - POLST Patient has POLST: Yes PD ED PE NORMAL - Vitals Vital signs reviewed: Yes (normal ) - General General: Alert and oriented X 3, Well developed/nourished, Other (anxious appearing ) - HEENT HEENT: Atraumatic, PERRL, EOMI, Other (dry mucous membranes. ) - Neck Neck: Supple, no meningeal sign, No bony TTP - Cardiac Cardiac: RRR, No murmur - Respiratory Respiratory: No respiratory distress, Clear bilaterally - Abdomen Abdomen: Soft, Other (specific LLQ tenderness without guarding or rebound tenderness. ) - Rectal Rectal: Deferred - Back Back: No CVA TTP, No spinal TTP - Derm Derm: Normal color, Warm and dry, No rash - Extremities Extremities: No deformity, No edema - Neuro Neuro: Alert and oriented X 3, portable canteen operator 2-12 intact, No motor deficit, No sensory de ficit, Normal speech Eye Opening: Spontaneous Motor: Obeys Commands Verbal: Oriented GCS Score: 15 - Psych Psych: Normal mood, Normal affect Results - Vitals Vitals: Vital Signs - 24 hr 11/08/18 11/08/18 11/08/18 09:40 11:55 11:56 Temperature 37 C 36.6 C 36.6 C Heart Rate 60 53 L 53 L Respiratory 18 12 16 Rate Blood Pressure 104/42 L 85/42 L 85/42 L O2 Saturation 97 99 99 11/08/18 11/08/18 11/08/18 12:09 14:23 14:28 Temperature 36.3 C L 36.7 C Heart Rate 63 52 L Respiratory 12 16 Rate Blood Pressure 98/54 L 103/62 98/61 O2 Saturation 97 96 Oxygen O2 Source Room air - Labs Labs: Laboratory Tests 11/08/18 11/08/18 11/08/18 10:33 10:33 10:35 WBC 9.4 RBC 4.66 Hgb 13.4 Hct 40.7 MCV 87.3 MCH 28.7 MCHC 32.9 RDW 13.9 Plt Count 271 MPV 7.7 L Neut # (Auto) 6.7 H Lymph # (Auto) 2.1 Bradford # (Auto) 0.5 Eos # (Auto) 0.1 Baso # (Auto) 0.1 Absolute Nucleated RBC 0.00 Nucleated RBC % 0.0 Sodium 137 Potassium 3.7 Chloride 105 Carbon Dioxide 26 Anion Gap 6.0 BUN 14 Creatinine 0.6 Estimated GFR (MDRD) 117 Glucose 98 Calcium 8.8 Total Bilirubin 0.6 AST 21 ALT 22 Alkaline Phosphatase 85 Total Protein 7.4 Albumin 3.8 Globulin 3.6 Albumin/Globulin Ratio 1.1 Lipase 30 Urine Color YELLOW Urine Clarity HAZY Urine pH 5.5 Ur Specific [place] >=1.030 H Urine Protein NEGATIVE Urine Glucose (UA) NEGATIVE Urine Ketones NEGATIVE Urine Occult Blood SMALL H Urine Nitrite NEGATIVE Urine Bilirubin NEGATIVE Urine Urobilinogen 0.2 (NORMAL) Ur Leukocyte Esterase NEGATIVE Urine RBC 6-10 H Urine WBC 0-3 Ur Squamous Epith Cells MANY Squamous H Urine Bacteria Few Ur Microscopic Review INDICATED Urine Culture Comments NOT INDICATED Urine HCG, Qual NEGATIVE - Rads (name of study) CT ab/pel with Radiology: Prelim report reviewed (Impression: 1. Minimal fullness noted about the right renal pelvis without evidence of stones. Correlate with renal function to exclude obstruction. 2 Left ovary appears larger compared to right, with follicles present. Given size asymmetry, ovarian torsion should be considered. 3. Unremarkable exam otherwise.), EMP read indepedently, See rad report ultrasound pelvis Radiology: Prelim report reviewed (Impression: 1. Polycystic appearance of the left ovary without overt ultrasound evidence of torsion at this time. 2. Right ovary is not visualized, may be obscured. 3. IUD appears to be appropriately positioned.), EMP read indepedently, See rad report Procedures - IVC sono (time) 1005 Bedside IVC sono: IVC measures (cm) (1.44), Euvolemia PD MEDICAL DECISION MAKING - ED course Complexity details: considered differential, d/w patient ED course: 28-year-old female with left lower quadrant abdominal pain has tenderness on examination she reports blood to the stool and a CT scan of the abdomen pelvis is obtained and this demonstrates an enlarged ovary on the left with concern for torsion. There is a polycytic ovary on the left without evidence of torsion. Departure - Departure Disposition: 01 Home, Self Care Clinical Impression: Cyst of ovary Qualifiers: Laterality: left Qualified Code(s): N83.202 - Unspecified ovarian cyst, left side Condition: Stable Instructions: ED Cyst Ovarian Follow-Up: Samra Thomason ARNP [Primary Care Provider] - Prescriptions: Hydrocodone/Acetaminophen [Hydrocodon-Acetaminophen 5-325] 1 - 2 each PO Q6H PRN #14 tablet PRN Reason: pain
[2018-11-08] MEDS ORDERED: KETOROLAC 30 MG/ML VIAL IVP STA (10:37)
[2018-11-08 10:40] LABS: BILIRUBIN,URINE NEGATIVE (NEGATIVE); GLUCOSE, URINE (UA) NEGATIVE (NEGATIVE); KETONES,URINE (UA) NEGATIVE (NEGATIVE); LEUKOCYTE ESTERASE, URINE NEGATIVE (NEGATIVE); NITRITE,URINE NEGATIVE (NEGATIVE); OCCULT BLOOD,URINE SMALL (NEGATIVE); PH,URINE 5.5 PH (5.0-7.5); PROTEIN,URINE NEGATIVE (NEGATIVE); UROBILINOGEN,URINE 0.2 (NORMAL) E.U./dL (NORMAL)
[2018-11-08 10:42] LABS: BASOPHILS # (AUTO) 0.1 10^3/uL (0.0-0.1); BASOPHILS % (AUTO) 0.6 %; EOSINOPHILS # (AUTO) 0.1 10^3/uL (0.0-0.7); EOSINOPHILS % (AUTO) 1.3 %; HGB - HEMOGLOBIN 13.4 g/dL (12.0-16.0); LYMPHOCYTES # (AUTO) 2.1 10^3/uL (1.5-3.5); LYMPHOCYTES % (AUTO) 22.1 %; MEAN CORPUSCULAR HEMOGLOBIN 28.7 pg (27.0-31.0); MEAN CORPUSCULAR HGB CONC 32.9 g/dL (32.0-36.0); MEAN CORPUSCULAR VOLUME 87.3 fL (81.0-99.0); MEAN PLATELET VOLUME 7.7 fL (7.9-10.8); MONOCYTES # (AUTO) 0.5 10^3/uL (0.0-1.0); MONOCYTES % (AUTO) 4.8 %; NEUTROPHILS # (AUTO) 6.7 10^3/uL (1.5-6.6); NEUTROPHILS % (AUTO) 71.2 %; PLT - PLATELET COUNT 271 10^3/uL (130-450); RED BLOOD COUNT 4.66 10^6/uL (4.20-5.40); RED CELL DISTRIBUTION WIDTH 13.9 % (12.0-15.0); WHITE BLOOD COUNT 9.4 x10^3/uL (4.8-10.8)
[2018-11-08 10:43] LABS: CLARITY,URINE HAZY (CLEAR); HCG UR QUAL NEGATIVE
[2018-11-08 10:53] LABS: ALBUMIN 3.8 g/dL (3.2-5.5); ALBUMIN/GLOBULIN RATIO 1.1 (1.0-2.2); BILIRUBIN,TOTAL 0.6 mg/dL (0.2-1.0); CALCIUM 8.8 mg/dL (8.5-10.3); CREATININE 0.6 mg/dL (0.4-1.0); TOTAL PROTEIN 7.4 g/dL (6.7-8.2)
[2018-11-08 10:55] LABS: BACTERIA,URINE Few /HPF (None Seen); SQUAMOUS EPITHELIAL CELL,UR MANY Squamous (<= Few)
[2018-11-08] MEDS ORDERED: IOVERSOL 320 100 ML VIAL IVP ONE ×2 (11:03→11:21)
--- NOTE | 2018-11-08 12:05 | CT Report ---
Reason: LLQ pain Procedure Date: 11/08/2018 Accession Number: [id number] / [id number] Procedure: CT - Abdomen/Pelvis W CPT Code: FULL RESULT: EXAM: CT ABDOMEN AND PELVIS EXAM DATE: 11/08/2018 11:22 AM. CLINICAL HISTORY: LLQ pain. COMPARISONS: None. TECHNIQUE: Routine helical CT imaging was performed through the abdomen and pelvis. IV contrast: OPTI 320 90ML. Enteric contrast: No. Reconstructions: Coronal and sagittal. In accordance with CT protocol optimization, one or more of the following dose reduction techniques were utilized for this exam: automated exposure control, adjustment of mA and/or KV based on patient size, or use of iterative reconstructive technique. FINDINGS: Lung Bases: Unremarkable. Liver: Normal. No masses. Gallbladder/Bile Ducts: Unremarkable. Spleen: Normal. Pancreas: Normal. Adrenal Glands: Normal. Kidneys: Minimal fullness noted about the right renal pelvis. Left kidney is grossly unremarkable. Peritoneal Cavity/Bowel: Normal. No free fluid, free air or adenopathy. No masses or acute inflammatory process. The appendix is well visualized and normal. Pelvic Organs: Urinary bladder is grossly unremarkable. There is slight relative enlargement of the left ovary compared to the right. Hyperdense T-shaped IUD is noted in the uterus. Vasculature: No aneurysms or other significant abnormality. Bones: No significant abnormality. Other: None. IMPRESSION: 1. Minimal fullness noted about the right renal pelvis without evidence of stones. Correlate with renal functions to exclude obstruction. 2. Left ovary appears larger compared to right, with follicles present. Given size asymmetry, ovarian torsion should be considered. 3. Unremarkable exam otherwise. RADIA
[2018-11-08] MEDS ORDERED: ONDANSETRON 4 MG/2 ML VIAL IVP STA (13:22)
[2018-11-08] MEDS ORDERED: HYDROmorphone 1 MG/ML CARPUJECT IVP STA (13:22)
--- NOTE | 2018-11-08 14:26 | Ultrasound Report ---
Reason: L ovarian enlargment pain Procedure Date: 11/08/2018 Accession Number: [id number] / [id number] Procedure: US - Pelvic w/Transvag+Doppler Ltd CPT Code: FULL RESULT: EXAM: PELVIC ULTRASOUND WITH DOPPLERS CLINICAL HISTORY: L ovarian enlargement and pain. COMPARISON: ABDOMEN/PELVIS W/ 11/08/2018 11:18 AM TECHNIQUE: Realtime transabdominal imaging performed to identify the uterus and adnexa and as an overview of other pelvic structures, followed by transvaginal imaging for better assessment of the endometrium and adnexa, with static image documentation. Color flow imaging and Doppler spectral analysis was performed to evaluate blood flow to the ovaries given pelvic pain and clinical concern for ovarian torsion. FINDINGS: Uterus: 8.6 with 3.4 x 4.6 cm, volume 70 cc. Anteverted position. Normal overall size and echotexture. Masses: None. Endometrium: 5.1 mm. IUD appears to be in expected position. Cervix: Unremarkable. Right Ovary: Not clearly visualized with transabdominal or transvaginal imaging. May be obscured. Adnexa are otherwise unremarkable. Left Ovary: 4.6 x 2.5 x 3.9 cm, volume 23 cc. Multiple small follicles of similar size with peripheral orientation. Arterial and venous blood flow are present. PSV 6.7 cm/sec. RI 0.68. Adnexa are unremarkable. Free Fluid: None. Other: None. IMPRESSION: 1. Polycystic appearance of the left ovary without overt ultrasound evidence of torsion at this time. 2. Right ovary is not visualized, may be obscured. 3. IUD appears to be appropriately positioned. RADIA
[2018-11-08 14:28] VITALS: BP 98/61
== END 2018-11-08 15:06 | disposition home or self-care (01) ==
LOC: EDUNIT# → ED 09:36
DX: N83.202 Unspecified ovarian cyst, left side (principal); Z97.5 Presence of (intrauterine) contraceptive device
CPT/HCPCS: 36415; 74177; 76830; 76856; 80053; 81001; 81025; 83690; 85025; 93976; 96374; 96375; 99283; 99284; J1170; Q9967; 81003; 87086

== ENCOUNTER 2019-01-08 11:04 | Emergency (ER) | payer MEDICAID ==
[2019-01-08 11:23] VITALS: BP 125/82
--- NOTE | 2019-01-08 12:27 | ED Physician Documentation ---
PD HPI MHE - Stated complaint Stated Complaint: ANXIETY - Chief complaint Chief Complaint: MHE - History obtained from History obtained from: Patient - History of Present Illness Primary symptom: Anxiety (She is a chronic history of anxiety and this is been much worse over the last week or week and a half after a loved one was hospitalized for hip fracture. She also has some social issues regarding b abysitting a friend's child. She is feeling shaky and is not sleeping well. She is been crying a lot. 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 , Ovarian cysts : Kidney stones, Other HEENT: None Psych: Anxiety, Post traumatic stress disorder Musculoskeletal: Chronic back pain Derm: None - Past Surgical History Past Surgical History: Yes /MANAGER STATISTICAL: Dilation and currettage HEENT: Tonsil/Adenoidectomy - Present Medications Home Medications: Ambulatory Orders Medication Instructions Recorded Confirmed Prenatl Vit6/Iron/FA/B12/Ca/D3 1 tab PO DAILY 09/30/17 01/08/19 [Mteryti Combo Pack] Lorazepam [Ativan] 1 mg PO TID PRN #15 tablet 01/08/19 - Allergies Allergies/Adverse Reactions: Allergies Allergy/AdvReac Type Severity Reaction Status Date / Time No Known Drug Allergies Allergy Verified 01/08/19 11:23 - Social History Does the pt smoke?: No Smoking Status: Never smoker Does the pt drink ETOH?: Yes Does the pt have substance abuse?: Yes Substance Use and Type: Marijuana - Immunizations Immunizations are current?: Yes - POLST Patient has POLST: Yes PD ED PE NORMAL - Vitals Vital signs reviewed: Yes - General General: Alert and oriented X 3, No acute distress - Respiratory Respiratory: No respiratory distress, Clear bilaterally - Neuro Neuro: Alert and oriented X 3, Normal speech Eye Opening: Spontaneous Motor: Obeys Commands Verbal: Oriented GCS Score: 15 - Psych Psych: Normal affect Results - Vitals Vitals: Vital Signs - 24 hr 01/08/19 11:18 Temperature 36.8 C Heart Rate 66 Respiratory 20 Rate Blood Pressure 125/82 H O2 Saturation 95 Oxygen O2 Source Room air PD MEDICAL DECISION MAKING - ED course ED course: 28-year-old woman with crippling anxiety related to stressors. Saw the social work lecturer here in a follow-up plan was formulated and given a short prescription for Ativan for symptoms. Departure - Departure Disposition: Home, Self Care Clinical Impression: Anxiety Condition: Good Record reviewed to determine appropriate education?: Yes Health Concerns: Anxiety with daily panic attacks. Plan of Treatment: Saw HIDE BUYER here, followup as discussed by HIDE BUYER for [facility] or [facility] for therapy. Care Goals: Improvement of anxiety symptoms and long-term control Assessment: as above Instructions: ED Stress React Prescriptions: Lorazepam [Ativan] 1 mg PO TID PRN #15 tablet PRN Reason: Anxiety Comments: Follow-up with [facility] at [phone] to schedule psychiatric care and counseling.
== END 2019-01-08 14:58 | disposition home or self-care (01) ==
LOC: ED 11:04
DX: F41.9 Anxiety disorder, unspecified (principal); F43.10 Post-traumatic stress disorder, unspecified
CPT/HCPCS: 99282; 99283

== ENCOUNTER 2019-03-30 12:20 | Emergency (ER) | payer SELFPAY ==
[2019-03-30 14:07] LABS: BILIRUBIN,URINE NEGATIVE (NEGATIVE); GLUCOSE, URINE (UA) NEGATIVE (NEGATIVE); KETONES,URINE (UA) NEGATIVE (NEGATIVE); LEUKOCYTE ESTERASE, URINE SMALL (NEGATIVE); NITRITE,URINE NEGATIVE (NEGATIVE); OCCULT BLOOD,URINE NEGATIVE (NEGATIVE); PH,URINE 5.5 PH (5.0-7.5); PROTEIN,URINE NEGATIVE (NEGATIVE); UROBILINOGEN,URINE 0.2 (NORMAL) E.U./dL (NORMAL)
[2019-03-30 14:14] LABS: CLARITY,URINE CLOUDY (CLEAR); HCG UR QUAL NEGATIVE
--- NOTE | 2019-03-30 14:50 | ED Physician Documentation ---
PD HPI ABD PAIN - Stated complaint Stated Complaint: L LEG Px/FEM - Chief complaint Chief Complaint: Ext Problem - History obtained from History obtained from: Patient - History of Present Illness Timing - onset: How many days ago (several) Timing - duration: Days Timing - details: Gradual onset, Still present Quality: Cramping, Aching, Pain Location: Suprapubic, LLQ Radiation: Other (is having lateral left thigh pain from low back, not corresponding to pelvic pains.). No: Left flank Improved by: No: Eating, Laying still Worsened by: Position. No: Eating Associated symptoms: No: Fever, Nausea, Vomiting Similar symptoms before: Has not had sx before Recently seen: Not recently seen (had been seen at [facility] with noted cysts at times and some rupturing of those, since getting IUD 6 months ago. Had not had pains prior to that. Thought hormonal effect, but it has not tapered after months (had been urged to see if symptoms improve after few months). Wishing IUD out. Now also having left lateral thigh pains for several days. No swelling of lower legs nor calf pains. Called [facility] and urged to go to ER for concern of DVT. Insurance changed last month so needed new paperwork to get appt back with the [facility].) Review of Systems Constitutional: denies: Fever, Chills Nose: denies: Rhinorrhea / runny nose, Congestion Throat: denies: Sore throat Respiratory: denies: Cough GI: reports: Abdominal Pain. denies: Nausea, Vomiting, Constipation, Diarrhea Skin: denies: Rash, Lesions Musculoskeletal: reports: Extremity pain (left thigh recent without injury) Neurologic: denies: Focal weakness, Numbness PD PAST MEDICAL HISTORY - Past Medical History Cardiovascular: None Respiratory: Asthma Neuro: Headaches, Migraines Endocrine/Autoimmune: None GI: None [facility]: Ectopic , Ovarian cysts : Kidney stones, Other HEENT: None Psych: Anxiety, Post traumatic stress disorder Musculoskeletal: Chronic back pain Derm: None - Past Surgical History Past Surgical History: Yes /[facility]: Dilation and currettage HEENT: Tonsil/Adenoidectomy - Present Medications Home Medications: Ambulatory Orders Medication Instructions Recorded Confirmed Prenatl Vit6/Iron/FA/B12/Ca/D3 1 tab PO DAILY 09/30/17 01/08/19 [Mteryti Combo Pack] Lorazepam [Ativan] 1 mg PO TID PRN #15 tablet 01/08/19 Hydrocodone/Acetaminophen 1 each PO Q6H PRN #20 tablet 03/30/19 [Hydrocodon-Acetaminophen 5-325] Naproxen 500 mg PO BID #20 tablet 03/30/19 dexAMETHasone [Decadron] 4 mg PO DAILY #5 tablet 03/30/19 - Allergies Allergies/Adverse Reactions: Allergies Allergy/AdvReac Type Severity Reaction Status Date / Time No Known Drug Allergies Allergy Verified 03/30/19 12:24 - Social History Does the pt smoke?: No Smoking Status: Never smoker Does the pt drink ETOH?: Yes Does the pt have substance abuse?: Yes - Immunizations Immunizations are current?: Yes - POLST Patient has POLST: Yes PD ED PE NORMAL - Vitals Vital signs reviewed: Yes - General General: Alert and oriented X 3, No acute distress, Well developed/nourished - Cardiac Cardiac: RRR, No murmur - Respiratory Respiratory: Clear bilaterally - Abdomen Abdomen: Normal bowel sounds, Soft, Non distended, No organomegaly, Other (tender LLQ and suprapubic area without percussion nor rebound tenderness. ) - Female Female : Mottler Operator present, Other (mild clear discharge. I could not see the IUD strings so could not pull out the IUD. ) Results - Vitals Vitals: Vital Signs - 24 hr 03/30/19 03/30/19 12:24 18:00 Temperature 36.5 C Heart Rate 74 61 Respiratory 16 15 Rate Blood Pressure 133/73 H 131/75 H O2 Saturation 97 98 Oxygen O2 Source Room air - Labs Labs: Laboratory Tests 03/30/19 13:51 Urine Color YELLOW Urine Clarity CLOUDY Urine pH 5.5 Ur Specific [place] >=1.030 H Urine Protein NEGATIVE Urine Glucose (UA) NEGATIVE Urine Ketones NEGATIVE Urine Occult Blood NEGATIVE Urine Nitrite NEGATIVE Urine Bilirubin NEGATIVE Urine Urobilinogen 0.2 (NORMAL) Ur Leukocyte Esterase SMALL H Urine RBC 6-10 H Urine WBC 6-10 H Ur Squamous Epith Cells MANY Squamous H Urine Bacteria Many H Urine Mucus Marked Strands Ur Microscopic Review INDICATED Urine Culture Comments NOT INDICATED Urine HCG, Qual NEGATIVE - Rads (name of study) duplex left leg Radiology: Prelim report reviewed, See rad report (no DVT) PD MEDICAL DECISION MAKING - ED course Complexity details: re-evaluated patient (pelvic exam: tried to take out IUD but I could not find strings, and ER does not have cervical dilators/etc for getting it out otherwise. ), considered differential (she has had pelvic pain and feels related to cysts and ovarian influence from [place] IUD. She is hoping to get it out. Had change in insurance so needs to get paperwork done to go back to [facility] for IUD removal, so may be 1-2 weeks. Now with left lateral thigh pain for days. [facility] and referred to ER for concern of DVT. ), d/w patient (Low suspicion for DVT based on Wells scoring. Can get Duplex since her [facility] had suggested it to patient over the phone. ) Departure - Departure Disposition: 01 Home, Self Care Clinical Impression: Left leg pain, Pelvic pain, IUD (intrauterine device) in place Condition: Stable Record reviewed to determine appropriate education?: Yes Instructions: ED Muscle Pain Leg Cramps Follow-Up: Anaya Clarke ARNP [Primary Care Provider] - [facility] [Provider Group] Prescriptions: dexAMETHasone [Decadron] 4 mg PO DAILY #5 tablet Hydrocodone/Acetaminophen [Hydrocodon-Acetaminophen 5-325] 1 each PO Q6H PRN #20 tablet PRN Reason: pain Naproxen 500 mg PO BID #20 tablet Comments: Your ultrasound is negative for blood clots. The leg pain sounds like a nerve irritation. There is no signs of infection at this point. Recheck if you do develop redness or blisters or rash in the area. Meanwhile we will treated with anti-inflammatories and pain medicines as prescribed. Follow-up with the [facility] regarding IUD removal. I am sorry I could not see the strings at this time in order to be able to take it out right now. They will need to dilate the cervix a little to get at the strings or they might actually come down in place and be visible on the follow-up visit. Return if worsening symptoms. Discharge Date/Time: 03/30/19 18:00
[2019-03-30 15:17] LABS: BACTERIA,URINE Many /HPF (None Seen); MUCUS,URINE Marked Strands; SQUAMOUS EPITHELIAL CELL,UR MANY Squamous (<= Few)
[2019-03-30] MEDS ORDERED: IBUPROFEN 600 MG TABLET PO STA (15:27)
[2019-03-30] MEDS ORDERED: CHERRY SYRUP 10 ML UDC PO ONE (15:27)
[2019-03-30] MEDS ORDERED: ACETAMINOPHEN 325 MG TABLET PO STA (15:27)
[2019-03-30] MEDS ORDERED: DEXAMETHASONE 10 MG/ML VIAL PO STA (15:27)
--- NOTE | 2019-03-30 16:51 | Ultrasound Report ---
Reason: leg pain; has IUD. Procedure Date: 03/30/2019 Accession Number: [id number] / [id number] Procedure: US - Duplex Ext Veins Left CPT Code: FULL RESULT: EXAM: LEFT LOWER EXTREMITY VENOUS ULTRASOUND EXAM DATE: 03/30/2019 04:04 PM. CLINICAL HISTORY: Leg pain; has IUD. COMPARISON: None. TECHNIQUE: Real-time sonographic vascular imaging was performed by the deputy commonwealth's attorney through the lower extremity utilizing both color-flow and Doppler spectral analysis. Multiple loan servicing representative static images were saved for review. FINDINGS: Common Femoral Vein (CFV): Normal. CFV-GSV Junction: Normal. Profunda Femoral Vein (PFV): Normal. Femoral Vein (FV) Prox: Normal. Femoral Vein (FV) Mid: Normal. Femoral Vein (FV) Dist: Normal. Popliteal Vein: Normal. Posterior Tibial Veins: Normal. Peroneal Veins: Normal. Other: None. IMPRESSION: No evidence for deep venous thrombosis. RADIA
[2019-03-30 18:01] VITALS: BP 131/75
== END 2019-03-30 18:00 | disposition home or self-care (01) ==
LOC: ED 12:20
DX: R10.2 Pelvic and perineal pain (principal); M79.652 Pain in left thigh; Z97.5 Presence of (intrauterine) contraceptive device
CPT/HCPCS: 81001; 81025; 93971; 99284; A9270; 81003; 87086

== ENCOUNTER 2019-07-30 13:08 | Emergency (ER) | payer BC ==
[2019-07-30] MEDS ORDERED: LACTATED RINGERS 1,000 ML IV STA (13:46)
--- NOTE | 2019-07-30 13:47 | ED Physician Documentation ---
History of Present Illness - Stated complaint Stated Complaint: ABD PX - Chief complaint Chief Complaint: Abd Pain - Additonal information Additional information: This is a 29-year-old female with a history of asthma, migraines, ovarian cysts, posttraumatic stress disorder, and chronic back pain, who presents with abdominal discomfort and bleeding. She states that last night she was watching a movie with her son and all of a sudden she had some pain in her abdomen, Which she described as diffuse throughout her lower abdomen, and moderate to severe. Is associated with immediate need to have diarrhea, she had diarrhea which had dark blood in it, she also had multiple episodes of vomiting. This calmed down, but this morning she had another episode of bloody diarrhea, and she has had some nausea as well. She denies any travel, foods out of the ordinary, or any sick contacts. She denies any history of inflammatory bowel disease. She does have some lower abdominal discomfort which is improved somewhat with Tylenol. She denies dysuria. 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 , Ovarian cysts : Kidney stones, Other HEENT: None Psych: Anxiety, Post traumatic stress disorder Musculoskeletal: Chronic back pain Derm: None - Past Surgical History Past 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 HEENT: Tonsil/Adenoidectomy - Present Medications Home Medications: Ambulatory Orders Medication Instructions Recorded Confirmed Prenatl Vit6/Iron/FA/B12/Ca/D3 1 tab PO DAILY 09/30/17 01/08/19 [Mteryti Combo Pack] Lorazepam [Ativan] 1 mg PO TID PRN #15 tablet 01/08/19 Hydrocodone/Acetaminophen 1 each PO Q6H PRN #20 tablet 03/30/19 [Hydrocodon-Acetaminophen 5-325] Naproxen 500 mg PO BID #20 tablet 03/30/19 dexAMETHasone [Decadron] 4 mg PO DAILY #5 tablet 03/30/19 Hydrocodone/Acetaminophen 1 each PO Q6H PRN #6 tablet 07/30/19 [Hydrocodon-Acetaminophen 5-325] Ondansetron Odt [Zofran] 4 mg TL Q6H PRN #10 tablet 07/30/19 - Allergies Allergies/Adverse Reactions: Allergies Allergy/AdvReac Type Severity Reaction Status Date / Time No Known Drug Allergies Allergy Verified 07/30/19 13:16 - Social History Does the pt smoke?: No Smoking Status: Never smoker Does the pt drink ETOH?: Yes Does the pt have substance abuse?: Yes - Immunizations Immunizations are current?: Yes - POLST Patient has POLST: Yes PD ED PE NORMAL - Vitals Vital signs reviewed: Yes - General General: Alert and oriented X 3 - HEENT HEENT: PERRL - Neck Neck: Supple, no meningeal sign - Cardiac Cardiac: RRR, No murmur - Respiratory Respiratory: No respiratory distress, Clear bilaterally - Abdomen Abdomen: Normal bowel sounds, Soft, Other (Suprapubic and left lower quadrant abdominal discomfort, no guarding. No right upper quadrant or right lower quadrant abdominal pain.) - Rectal Rectal: Other (Chaperoned by RN. External clifton-anal area is normal in appearance, Small amount of bright red blood in the rectal vault. No mass palpated.) - Derm Derm: Warm and dry - Extremities Extremities: No deformity - Neuro Neuro: Alert and oriented X 3 - Psych Psych: Normal mood, Normal affect Results - Vitals Vitals: Oxygen O2 Source Room air - Labs Labs: Laboratory Tests 07/30/19 07/30/19 07/30/19 14:55 14:55 14:55 WBC 10.0 RBC 4.47 Hgb 13.4 Hct 42.4 MCV 94.9 MCH 30.0 MCHC 31.6 L RDW 12.9 Plt Count MPV 11.1 H Neut # (Auto) 6.3 Lymph # (Auto) 3.0 [place] # (Auto) 0.4 Eos # (Auto) 0.2 Baso # (Auto) 0.1 Absolute Nucleated RBC 0.00 Nucleated RBC % 0.0 Manual Slide Review Indicated WBC Morphology NORMAL APPEARANCE Platelet Estimate NORMAL (130-450,000) Platelet Morphology PLATELET CLUMPING RBC Morph Micro Appear NORMAL APPEARANCE PT 13.4 H INR 1.2 Sodium 141 Potassium 3.6 Chloride 109 Carbon Dioxide 23 Anion Gap 9.0 BUN 15 Creatinine 0.7 Estimated GFR (MDRD) 98 Glucose 83 Calcium 8.9 Total Bilirubin 0.8 AST 20 ALT 33 Alkaline Phosphatase 77 Total Protein 7.2 Albumin 4.0 Globulin 3.2 Albumin/Globulin Ratio 1.3 Lipase 32 Urine Color Urine Clarity Urine pH Ur Specific [place] Urine Protein Urine Glucose (UA) Urine Ketones Urine Occult Blood Urine Nitrite Urine Bilirubin Urine Urobilinogen Ur Leukocyte Esterase Ur Microscopic Review Urine Culture Comments Urine HCG, Qual 07/30/19 07/30/19 16:00 16:00 WBC RBC Hgb Hct MCV MCH MCHC RDW Plt Count MPV Neut # (Auto) Lymph # (Auto) [place] # (Auto) Eos # (Auto) Baso # (Auto) Absolute Nucleated RBC Nucleated RBC % Manual Slide Review WBC Morphology Platelet Estimate Platelet Morphology RBC Morph Micro Appear PT INR Sodium Potassium Chloride Carbon Dioxide Anion Gap BUN Creatinine Estimated GFR (MDRD) Glucose Calcium Total Bilirubin AST ALT Alkaline Phosphatase Total Protein Albumin Globulin Albumin/Globulin Ratio Lipase Urine Color YELLOW Urine Clarity CLEAR Urine pH 5.0 Ur Specific [place] >=1.030 H >=1.030 H Urine Protein NEGATIVE Urine Glucose (UA) NEGATIVE Urine Ketones NEGATIVE Urine Occult Blood TRACE-INTA Urine Nitrite NEGATIVE Urine Bilirubin NEGATIVE Urine Urobilinogen 0.2 (NORMAL) Ur Leukocyte Esterase NEGATIVE Ur Microscopic Review NOT INDICATED Urine Culture Comments NOT INDICATED Urine HCG, Qual NEGATIVE PD MEDICAL DECISION MAKING - ED course Complexity details: considered differential (Gastroenteritis, enteritis, Anemia, hemorrhoids, rectal fissure, inflammatory bowel disease, diverticulosis, ect opic , UTI) ED course: In triage patient had a blood pressure measured at 90/60, on all subsequent measurements her blood pressure was > 110/70, She is not lightheaded, she is awake and alert, and her blood pressure improved without any intervention, before receiving any fluids. She has no further episodes of hypotension, This raise my concern that it was an inaccurate measurement in triage. Pt was given morphine and zofran for discomfort, the morphine started to trigger a headache for her so she was given sumatriptan. Rectal exam does reveal a very small amount of bright red blood. Labs were drawn and are unremarkable. No anemia or leukocytosis. HCG negative. On repeat examination patient is feeling much better. Her abdomen is benign. She has no nausea. I discussed with her given that she does have some blood in her stool, but her labs and exam are very reassuring. Despite being in the ED for hours she has been unable to give us a stool sample. I also discussed the option of a CT scan. She would prefer to hold off as she does not want radiation, and she is feeling better. Given her benign abdominal exam, her her unremarkable vital signs, her reassuring labs, and the fact that she is very reasonable and able to return to the emergency department if things worsen in any way, I think it is reasonable to defer the scan today. I have a high suspicion for gastroenteritis or other abdominal infection, but I do not think empiric antibiotics are appropriate at this time she has been unable to provide a stool sample despite 4 hours in the emergency department, and she has had no episodes of vomiting, she does appear appropriate for outpatient management. She will be able to see her primary care provider on Friday and should return to the emergency permit sooner if she has any worsening Departure - Departure Disposition: Home, Self Care Clinical Impression: Blood in stool Condition: Good Follow-Up: Anaya Clarke ARNP [Primary Care Provider] - Within 3 Days Prescriptions: Hydrocodone/Acetaminophen [Hydrocodon-Acetaminophen 5-325] 1 each PO Q6H PRN #6 tablet PRN Reason: pain Ondansetron Odt [Zofran] 4 mg TL Q6H PRN #10 tablet PRN Reason: Nausea / Vomiting Comments: You were seen today for abdominal pain/cramping and blood in your stool. Your vomiting and diarrhea raises concern for enteritis or inflammation of your intes tines, it is unclear if this is due to infection or other cause. Given your reassuring labs and vital signs I think it is safe to observe this closely at home, but as we discussed if you have any worsening such as repeated episodes of bleeding, worsening abdominal pain, vomiting despite the medications, or any other concerning symptoms, return to the emergency department. Even if you are feeling better it is important that you follow-up with your primary care provider soon as possible. If your symptoms are continuing it would be a good idea to obtain a stool sample as well, since were unable to get one today. I am prescribing a small amount of Percocet, but if you are requiring further doses of pain medication, you should be reassessed for more serious cause of your pain. Do not drink alcohol or drive while taking narcotic pain medication. Note that many narcotic pain relievers also contain Tylenol/acetaminophen. Please ensure that your total dose of acetaminophen from all sources does not exceed 3 g (3000 mg) per day. You may get constipated while on this medication. Take a stool softener such as Colace twice a day while you are on it. Also add an [id number] laxative such as senna or MiraLAX on any day that you do not have a bowel movement. If you received a narcotic pain medication or sedative while in the emergency department, do not drive for the next 24 hours. Discharge Date/Time: 07/30/19 17:33
[2019-07-30] MEDS ORDERED: ONDANSETRON 4 MG/2 ML VIAL IVP STA (14:06)
[2019-07-30] MEDS ORDERED: MORPHINE 2 MG/ML CARPUJECT IVP STA (14:06)
[2019-07-30 15:05] LABS: BASOPHILS # (AUTO) 0.1 10^3/uL (0.0-0.1); BASOPHILS % (AUTO) 0.5 %; EOSINOPHILS # (AUTO) 0.2 10^3/uL (0.0-0.7); EOSINOPHILS % (AUTO) 1.6 %; HGB - HEMOGLOBIN 13.4 g/dL (12.0-16.0); INR 1.2 (0.8-1.2); MEAN CORPUSCULAR HGB CONC 31.6 g/dL (32.0-36.0); MEAN CORPUSCULAR VOLUME 94.9 fL (81.0-99.0); MEAN PLATELET VOLUME 11.1 fL (7.9-10.8); MONOCYTES # (AUTO) 0.4 10^3/uL (0.0-1.0); MONOCYTES % (AUTO) 4.4 %; NEUTROPHILS # (AUTO) 6.3 10^3/uL (1.5-6.6); NEUTROPHILS % (AUTO) 63.1 %; PT - PROTHROMBIN TIME 13.4 secs (9.9-12.6); RED BLOOD COUNT 4.47 10^6/uL (4.20-5.40); RED CELL DISTRIBUTION WIDTH 12.9 % (12.0-15.0)
[2019-07-30 15:17] LABS: ALBUMIN/GLOBULIN RATIO 1.3 (1.0-2.2); BILIRUBIN,TOTAL 0.8 mg/dL (0.2-1.0); CALCIUM 8.9 mg/dL (8.5-10.3); CREATININE 0.7 mg/dL (0.4-1.0); TOTAL PROTEIN 7.2 g/dL (6.7-8.2)
[2019-07-30] MEDS ORDERED: BUTALB/ACETAM/CAFF 50/325/40MG TABLET PO STA (15:21)
[2019-07-30 15:22] LABS: PLATELET ESTIMATE, MANUAL NORMAL (130-450,000) (NORMAL); PLATELET MORPHOLOGY PLATELET CLUMPING (NORMAL); RBC MORPHOLOGY (MULTIPLE) NORMAL APPEARANCE (NORMAL)
[2019-07-30 16:10] LABS: BILIRUBIN,URINE NEGATIVE (NEGATIVE); GLUCOSE, URINE (UA) NEGATIVE (NEGATIVE); KETONES,URINE (UA) NEGATIVE (NEGATIVE); LEUKOCYTE ESTERASE, URINE NEGATIVE (NEGATIVE); NITRITE,URINE NEGATIVE (NEGATIVE); OCCULT BLOOD,URINE TRACE-INTA (NEGATIVE); PROTEIN,URINE NEGATIVE (NEGATIVE); UROBILINOGEN,URINE 0.2 (NORMAL) E.U./dL (NORMAL)
[2019-07-30 16:11] LABS: CLARITY,URINE CLEAR (CLEAR)
[2019-07-30 16:12] LABS: HCG UR QUAL NEGATIVE
[2019-07-30] MEDS ORDERED: HYDROmorphone 1 MG/ML CARPUJECT IVP STA (16:18)
[2019-07-30] MEDS ORDERED: SUMAtriptan 6 MG/0.5 ML VIAL SUBQ STA (16:19)
[2019-07-30 17:19] VITALS: BP 107/56
== END 2019-07-30 17:33 | disposition home or self-care (01) ==
LOC: ED 13:08
DX: K92.1 Melena (principal)
CPT/HCPCS: 36415; 80053; 81003; 81025; 83690; 85025; 85610; 96361; 96374; 96375; 99284; 99285; A9270; J1170; J7120; 81001; 87086

== ENCOUNTER 2019-08-06 19:58 | Emergency (ER) | payer BC ==
--- NOTE | 2019-08-06 20:16 | ED Physician Documentation ---
History of Present Illness - Stated complaint Stated Complaint: ABD PX - Chief complaint Chief Complaint: Abd Pain - History obtained from History obtained from: Patient (Patient is a very pleasant 29-year-old female who presents with a chief complaint of abdominal pain off and on for the last month she which her primary care provider and a have provided her with a GI consult but will be for another week or so she is having severe pain and cramping and alternating diarrhea and constipation tonight she noticed some mild amount of blood in her stools and she also reports that she felt so weak that she can a slump to the ground and bumped her head she denies being anticoagulated she denies loss of consciousness she denies any swelling or bleeding to her head she denies any dysuria hematuria or flank pain she has had 1 previous she has had a previous tonsillectomy and also has had a previous ectopic she reports that she is not currently she denies any pelvic pain or vaginal discharge or vaginal bleeding.) Review of Systems Constitutional: reports: Reviewed and negative Eyes: reports: Reviewed and negative Ears: reports: Reviewed and negative Nose: reports: Reviewed and negative Throat: reports: Reviewed and negative Cardiac: reports: Reviewed and negative Respiratory: reports: Reviewed and negative GI: reports: Abdominal Pain, Nausea, Vomiting, Reviewed and negative : reports: Reviewed and negative Skin: reports: Reviewed and negative Musculoskeletal: reports: Reviewed and negative Neurologic: reports: Reviewed and negative Psychiatric: reports: Reviewed and negative Endocrine: reports: Reviewed and negative Immunocompromised: reports: Reviewed and negative PD PAST MEDICAL HISTORY - Past Medical History Past Medical History: Yes Cardiovascular: None Respiratory: Asthma Neuro: Headaches, Migraines Endocrine/Autoimmune: None GI: None 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 , Ovarian cysts : Kidney stones, Other HEENT: None Psych: Anxiety, Post traumatic stress disorder Musculoskeletal: Chronic back pain Derm: None - Past Surgical History 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 HEENT: Tonsil/Adenoidectomy - Present Medications Home Medications: Ambulatory Orders Medication Instructions Recorded Confirmed Prenatl Vit6/Iron/FA/B12/Ca/D3 1 tab PO DAILY 09/30/17 01/08/19 [Mteryti Combo Pack] Lorazepam [Ativan] 1 mg PO TID PRN #15 tablet 01/08/19 Hydrocodone/Acetaminophen 1 each PO Q6H PRN #20 tablet 03/30/19 [Hydrocodon-Acetaminophen 5-325] Naproxen 500 mg PO BID #20 tablet 03/30/19 dexAMETHasone [Decadron] 4 mg PO DAILY #5 tablet 03/30/19 Hydrocodone/Acetaminophen 1 each PO Q6H PRN #6 tablet 07/30/19 [Hydrocodon-Acetaminophen 5-325] Ondansetron Odt [Zofran] 4 mg TL Q6H PRN #10 tablet 07/30/19 - Allergies Allergies/Adverse Reactions: Allergies Allergy/AdvReac Type Severity Reaction Status Date / Time No Known Drug Allergies Allergy Verified 08/06/19 20:05 - Social History Does the pt smoke?: No Smoking Status: Never smoker Does the pt drink ETOH?: Yes Does the pt have substance abuse?: Yes - Immunizations Immunizations are current?: Yes - POLST Patient has POLST: Yes PD ED PE NORMAL - Vitals Vital signs reviewed: Yes - General General: Alert and oriented X 3, No acute distress - HEENT HEENT: PERRL - Neck Neck: Supple, no meningeal sign - Cardiac Cardiac: RRR, No murmur - Respiratory Respiratory: Clear bilaterally - Abdomen Abdomen: Normal bowel sounds, Soft, Non tender, Non distended - Derm Derm: Warm and dry - Extremities Extremities: No deformity - Neuro Neuro: Alert and oriented X 3 - Psych Psych: Normal mood, Normal affect Results - Vitals Vitals: Vital Signs - 24 hr 08/06/19 08/06/19 20:00 22:00 Temperature 36.5 C 36.9 C Heart Rate 73 64 Respiratory 16 16 Rate Blood Pressure 117/64 106/41 L O2 Saturation 100 94 Oxygen O2 Source Room air - Labs Labs: Laboratory Tests 08/06/19 08/06/19 08/06/19 20:15 20:15 21:16 WBC 11.0 H RBC 4.71 Hgb 14.3 Hct 44.0 MCV 93.4 MCH 30.4 MCHC 32.5 RDW 13.2 Plt Count 257 MPV 9.9 Neut # (Auto) 6.9 H Lymph # (Auto) 3.2 [place] # (Auto) 0.5 Eos # (Auto) 0.2 Baso # (Auto) 0.1 Absolute Nucleated RBC 0.00 Nucleated RBC % 0.0 Sodium Potassium Chloride Carbon Dioxide Anion Gap BUN Creatinine Estimated GFR (MDRD) Glucose Calcium Total Bilirubin AST ALT Alkaline Phosphatase Total Protein Albumin Globulin Albumin/Globulin Ratio Lipase Urine Color YELLOW Urine Clarity CLEAR Urine pH 5.5 Ur Specific [place] >=1.030 H >=1.030 H Urine Protein NEGATIVE Urine Glucose (UA) NEGATIVE Urine Ketones NEGATIVE Urine Occult Blood NEGATIVE Urine Nitrite NEGATIVE Urine Bilirubin NEGATIVE Urine Urobilinogen 0.2 (NORMAL) Ur Leukocyte Esterase NEGATIVE Urine RBC 0-5 Urine WBC 0-3 Ur Squamous Epith Cells MOD Squamous H Urine Bacteria Rare Urine Culture Comments NOT INDICATED Urine HCG, Qual NEGATIVE 08/06/19 21:30 WBC RBC Hgb Hct MCV MCH MCHC RDW Plt Count MPV Neut # (Auto) Lymph # (Auto) [place] # (Auto) Eos # (Auto) Baso # (Auto) Absolute Nucleated RBC Nucleated RBC % Sodium 139 Potassium 3.7 Chloride 105 Carbon Dioxide 25 Anion Gap 9.0 BUN 15 Creatinine 0.7 Estimated GFR (MDRD) 98 Glucose 106 H Calcium 8.7 Total Bilirubin 0.3 AST 16 ALT 26 Alkaline Phosphatase 74 Total Protein 7.0 Albumin 3.7 Globulin 3.3 Albumin/Globulin Ratio 1.1 Lipase 40 Urine Color Urine Clarity Urine pH Ur Specific [place] Urine Protein Urine Glucose (UA) Urine Ketones Urine Occult Blood Urine Nitrite Urine Bilirubin Urine Urobilinogen Ur Leukocyte Esterase Urine RBC Urine WBC Ur Squamous Epith Cells Urine Bacteria Urine Culture Comments Urine HCG, Qual PD MEDICAL DECISION MAKING - ED course Complexity details: other (After the patient was given 0.5 mg of dilaudid, she had severe headache, it was treated with iv benadryl and compazine and her symptoms resolved. Patient was updated all of her results to include CT scan of the head and CT scan of the abdomen and pelvis her symptoms are resolved and she would like to be discharged home at this time. Patient does have medical decision-making capability and capacity.) Departure - Departure Disposition: 01 Home, Self Care Clinical Impression: Abdominal pain Qualifiers: Abdominal location: generalized Qualified Code(s): R10.84 - Generalized abdominal pain Headache Qualifiers: Headache type: unspecified Headache chronicity pattern: acute headache Intractability: not intractable Qualified Code(s): R51 - Headache Condition: Good Instructions: ED Abdominal Pain Unkn Cause Follow-Up: Anaya Clarke ARNP [Primary Care Provider] -
[2019-08-06 20:26] LABS: BILIRUBIN,URINE NEGATIVE (NEGATIVE); GLUCOSE, URINE (UA) NEGATIVE (NEGATIVE); KETONES,URINE (UA) NEGATIVE (NEGATIVE); LEUKOCYTE ESTERASE, URINE NEGATIVE (NEGATIVE); NITRITE,URINE NEGATIVE (NEGATIVE); OCCULT BLOOD,URINE NEGATIVE (NEGATIVE); PH,URINE 5.5 PH (5.0-7.5); PROTEIN,URINE NEGATIVE (NEGATIVE); UROBILINOGEN,URINE 0.2 (NORMAL) E.U./dL (NORMAL)
[2019-08-06 20:29] LABS: HCG UR QUAL NEGATIVE
[2019-08-06] MEDS ORDERED: MORPHINE 2 MG/ML CARPUJECT IVP STA (20:29)
[2019-08-06] MEDS ORDERED: SODIUM CHLORIDE 0.9% 1,000 ML IV ONE (20:29)
[2019-08-06 20:41] LABS: CLARITY,URINE CLEAR (CLEAR)
[2019-08-06 20:42] LABS: BACTERIA,URINE Rare /HPF (None Seen); RBC,URINE 0-5 /HPF (0-5); SQUAMOUS EPITHELIAL CELL,UR MOD Squamous (<= Few)
[2019-08-06] MEDS ORDERED: DICYCLOMINE 10 MG CAPSULE PO STA (20:59)
[2019-08-06] MEDS ORDERED: IOVERSOL 320 100 ML VIAL IVP ONE ×2 (21:04→22:39)
[2019-08-06 21:19] LABS: BASOPHILS # (AUTO) 0.1 10^3/uL (0.0-0.1); BASOPHILS % (AUTO) 0.5 %; EOSINOPHILS # (AUTO) 0.2 10^3/uL (0.0-0.7); EOSINOPHILS % (AUTO) 1.6 %; HGB - HEMOGLOBIN 14.3 g/dL (12.0-16.0); LYMPHOCYTES # (AUTO) 3.2 10^3/uL (1.5-3.5); LYMPHOCYTES % (AUTO) 29.4 %; MEAN CORPUSCULAR HEMOGLOBIN 30.4 pg (27.0-31.0); MEAN CORPUSCULAR HGB CONC 32.5 g/dL (32.0-36.0); MEAN CORPUSCULAR VOLUME 93.4 fL (81.0-99.0); MEAN PLATELET VOLUME 9.9 fL (7.9-10.8); MONOCYTES # (AUTO) 0.5 10^3/uL (0.0-1.0); MONOCYTES % (AUTO) 4.8 %; NEUTROPHILS # (AUTO) 6.9 10^3/uL (1.5-6.6); NEUTROPHILS % (AUTO) 63.1 %; PLT - PLATELET COUNT 257 10^3/uL (130-450); RED BLOOD COUNT 4.71 10^6/uL (4.20-5.40); RED CELL DISTRIBUTION WIDTH 13.2 % (12.0-15.0)
[2019-08-06] MEDS: ONDANSETRON 4 MG/2 ML VIAL IM STA ×2 (21:33→21:44)
[2019-08-06] MEDS ORDERED: ONDANSETRON 4 MG/2 ML VIAL IVP STA (21:33)
[2019-08-06] MEDS ORDERED: HYDROmorphone 2 MG/ML VIAL IVP STA (21:45)
[2019-08-06 21:48] LABS: ALBUMIN 3.7 g/dL (3.2-5.5); ALBUMIN/GLOBULIN RATIO 1.1 (1.0-2.2); BILIRUBIN,TOTAL 0.3 mg/dL (0.2-1.0); CALCIUM 8.7 mg/dL (8.5-10.3); CREATININE 0.7 mg/dL (0.4-1.0)
[2019-08-06] MEDS ORDERED: PROCHLORPERAZINE 10 MG/2 ML VIAL IVP STA (22:43)
[2019-08-06] MEDS ORDERED: diphenhydrAMINE INJ 50 MG/ML VIAL IVP STA (22:43)
--- NOTE | 2019-08-06 23:06 | CT Report ---
Reason: ABD PAIN Procedure Date: 08/06/2019 Accession Number: [id number] / [id number] Procedure: CT - Abdomen/Pelvis W CPT Code: Final Report FULL RESULT: EXAM: CT ABDOMEN AND PELVIS EXAM DATE: 08/06/2019 10:36 PM. CLINICAL HISTORY: ABD PAIN. COMPARISONS: ABDOMEN/PELVIS W/ 11/08/2018 11:18 AM. TECHNIQUE: Routine helical CT imaging was performed through the abdomen and pelvis. IV contrast: OPTI 320 100ML. Enteric contrast: No. Reconstructions: Coronal and sagittal. In accordance with CT protocol optimization, one or more of the following dose reduction techniques were utilized for this exam: automated exposure control, adjustment of mA and/or KV based on patient size, or use of iterative reconstructive technique. FINDINGS: Lung Bases: Unremarkable. Liver: Normal. No masses. Gallbladder/Bile Ducts: Unremarkable. Spleen: Normal. Pancreas: Normal. Adrenal Glands: Normal. Kidneys: Normal. No masses or hydronephrosis. Peritoneal Cavity/Bowel: Normal. No free fluid, free air or adenopathy. No masses or acute inflammatory process. The appendix is well visualized and normal. There are no inflammatory changes of the colon. Pelvic Organs: The uterus is anteverted. There is an IUD within the endometrial canal. There is a corpus luteum cyst so soon with a left ovary. Vasculature: No aneurysms or other significant abnormality. Bones: No significant abnormality. Other: None. IMPRESSION: Normal abdomen and pelvis CT. RADIA
--- NOTE | 2019-08-06 23:45 | CT Report ---
Reason: SEVERE HEADACHE Procedure Date: 08/06/2019 Accession Number: [id number] / [id number] Procedure: CT - HEAD WO CPT Code: Final Report FULL RESULT: EXAM: CT HEAD EXAM DATE: 08/06/2019 11:08 PM. CLINICAL HISTORY: SEVERE HEADACHE. COMPARISON: HEAD W/O 03/08/2013 9:54 PM. TECHNIQUE: Multiaxial CT images were obtained from the foramen magnum to the vertex. Reformats: Sagittal and coronal. IV contrast: None. In accordance with CT protocol optimization, one or more of the following dose reduction techniques were utilized for this exam: automated exposure control, adjustment of mA and/or KV based on patient size, or use of iterative reconstructive technique. FINDINGS: Parenchyma: No intraparenchymal hemorrhage. No evidence of mass, midline shift, or CT findings of infarction. Marks-white differentiation is distinct. Extraaxial Spaces: Normal for age. No subdural or epidural collections identified. Ventricles: Normal in size and position. Sinuses and Orbits: There are retention cysts in both maxillary antra. In the right retention cyst measures 29 mm x 17 mm and on the left retention cyst measures 17 mm x 17 mm. Bones: No evidence of fracture or calvarial defect. Other: None. IMPRESSION: 1. Negative CT scan of the head. 2. Retention cysts in both maxillary antra. RADIA
[2019-08-07 00:36] VITALS: BP 131/62
== END 2019-08-07 00:38 | disposition home or self-care (01) ==
LOC: ED 19:58
DX: R10.84 Generalized abdominal pain (principal); R51 Headache; T40.2X5A Adverse effect of other opioids, initial encounter
CPT/HCPCS: 36415; 70450; 74177; 80053; 81001; 81025; 83690; 85025; 96361; 96374; 96375; 99284; 99285; A9270; J1170; J1200; Q9967; 87086

== ENCOUNTER 2019-12-10 16:59 | Outpatient (CLI) | payer BC ==
--- NOTE | 2019-12-11 13:18 | Ultrasound Report ---
Reason: IUD SURVEILLANCE Procedure Date: 12/10/2019 Accession Number: [id number] / [id number] Procedure: US - Pelvic w/Transvaginal CPT Code: Final Report FULL RESULT: EXAM: PELVIC ULTRASOUND EXAM DATE: 12/10/2019 05:18 PM. CLINICAL HISTORY: IUD SURVEILLANCE. Missing IUD strings. Assess placement/location of IUD. COMPARISON: ABDOMEN/PELVIS W/ 08/06/2019 10:25 PM PEL NON OB W/TV DOP LTD 11/08/2018 1:17 PM ABDOMEN/PELVIS W/ 11/08/2018 11:18 AM. TECHNIQUE: Realtime transabdominal pelvic scan performed to identify the uterus and adnexa and as an overview of other pelvic structures, followed by transvaginal scan to provide greater detail of the uterus and adnexa, with static image documentation. FINDINGS: Uterus: 8.9 x 3.8 x 4.7 cm, volume 83.3 cc. Anteverted position. Normal overall size and echotexture. Masses: None. Endometrium: 7 mm. Shadowing related to intrauterine device within the endometrial canal. Cervix: Unremarkable. Right Ovary: Not visualized on transabdominal or transvaginal imaging. May be obscured by overlying structures. Correlate with clinical history. Left Ovary: 4.1 x 2.8 x 4 cm, volume 24 cc. Contains a complex cystic structure measuring 2.2 x 2.6 x 2.3 cm. A punctate 3 mm calcification is present within the left ovary, unchanged from CT dated 11/08/2018. No associated ovarian lesion identified sonographically. This is nonspecific and could be related to prior insult such as cyst rupture. Otherwise unremarkable echotexture and blood flow. Free Fluid: Small volume of pelvic free fluid. Other: None. IMPRESSION: 1. IUD present in endometrial canal. 2. Small volume of pelvic free fluid. 3. Left ovarian complex cystic lesion which could reflect a corpus luteum or hemorrhagic cyst. 4. Nonvisualization of right ovary. May be obscured by overlying structures. Correlate with clinical history. 5. Other findings as above. RADIA
== END 2019-12-10 17:00 | disposition home or self-care (01) ==
LOC: DI 16:59
PROVIDERS: ATTEND Obstetrics & Gynecology
DX: Z30.431 Encounter for routine checking of intrauterine contraceptive device (principal); N83.202 Unspecified ovarian cyst, left side
CPT/HCPCS: 76830; 76856

== ENCOUNTER 2019-12-24 14:55 | Outpatient (CLI) | payer BC | END 2019-12-24 23:59 | disposition home or self-care (01) | LOC: LAB 14:55 | PROVIDERS: ATTEND Obstetrics & Gynecology | DX: N93.8 Other specified abnormal uterine and vaginal bleeding (principal); N94.6 Dysmenorrhea, unspecified; R10.2 Pelvic and perineal pain; Z11.59 Encounter for screening for other viral diseases | CPT/HCPCS: 81599 ==

== ENCOUNTER 2019-12-29 10:18 | Day surgery (SDC) | payer BC ==
[~2019-12-29 10:18] MED LIST: ACETAMINOPHEN 1,000 MG/100 ML 100 ML IV ONE; BUPIVACAINE 0.25% PF 30 ML VIAL ONE; CELECOXIB 100 MG CAPSULE PO ONE; GABAPENTIN 400 MG CAPSULE ONE; LIDOCAINE 1% 50 ML MDV ONE; SILVER NITRATE APPLICATOR TOP ONE
[2019-12-29] MEDS ORDERED: LIDOCAINE-MPF 2% 5 ML VIAL IM ONE (10:19)
[2019-12-29] MEDS ORDERED: PROPOFOL 200 MG/20 ML VIAL IVP ONE (10:19)
[2019-12-29] MEDS ORDERED: MIDAZOLAM 2 MG/2 ML VIAL IVP ONE (10:19)
[2019-12-29] MEDS ORDERED: LACTATED RINGERS 1,000 ML IV ONE (10:22)
[2019-12-29 10:55] LABS: BASOPHILS % (AUTO) 0.7 %; EOSINOPHILS # (AUTO) 0.1 10^3/uL (0.0-0.7); EOSINOPHILS % (AUTO) 1.8 %; HGB - HEMOGLOBIN 13.6 g/dL (12.0-16.0); LYMPHOCYTES # (AUTO) 2.5 10^3/uL (1.5-3.5); LYMPHOCYTES % (AUTO) 41.3 %; MEAN CORPUSCULAR VOLUME 90.7 fL (81.0-99.0); MEAN PLATELET VOLUME 9.3 fL (7.9-10.8); MONOCYTES # (AUTO) 0.4 10^3/uL (0.0-1.0); NEUTROPHILS % (AUTO) 49.9 %; PLT - PLATELET COUNT 264 10^3/uL (130-450); RED BLOOD COUNT 4.54 10^6/uL (4.20-5.40); RED CELL DISTRIBUTION WIDTH 12.9 % (12.0-15.0)
[2019-12-29 11:07] LABS: HCG UR QUAL NEGATIVE
--- NOTE | 2019-12-29 12:51 | ANESTHESIA ---
Pre-Anesthesia VS, & Labs - Diagnosis Dysfunctional uterine bleeding, pelvic pain, dysmenorrhea - Procedure hysterscopic removal of IUD with possible laparoscopic approach Vital Signs: Temp Pulse Resp BP Pulse Ox 36.4 C L 71 20 152/77 H 99 12/29/19 10:33 12/29/19 10:33 12/29/19 10:33 12/29/19 10:33 12/29/19 10:33 Height 5 ft 9 in Weight (kg) 120.8 kg Body Mass Index 36.9 - NPO >8 hours - Is Patient ?: No - Lab Results Current Lab Results: Laboratory Tests 12/29/19 10:52: WBC 6.0, RBC 4.54, Hgb 13.6, Hct 41.2, MCV 90.7, MCH 30.0, MCHC 33.0, RDW 12.9, Plt Count 264, MPV 9.3, Neut # (Auto) 3.0, Lymph # (Auto) 2.5, [place] # (Auto) 0.4, Eos # (Auto) 0.1, Baso # (Auto) 0.0, Absolute Nucleated RBC 0.00, Nucleated RBC % 0.0 12/29/19 10:47: POC Whole Bld Glucose 96 Fish Bones: 12/29/19 10:52 Home Medications and Allergies Home Medications: Ambulatory Orders Acetaminophen [Tylenol] 650 mg PO Q6H PRN 12/24/19 Acetaminophen [Tylenol] 650 mg PO Q6H PRN 12/24/19 Allergies/Adverse Reactions: Allergies Allergy/AdvReac Type Severity Reaction Status Date / Time No Known Drug Allergies Allergy Verified 08/06/19 20:05 Anes History & Medical History - Anesthetic History Anesthesia Complications: reports: No previous complications - Medical History Cardiovascular: reports: None Pulmonary: reports: None Gastrointestinal: reports: None Urinary: reports: Kidney stones (history of kidney stones.) Neuro: reports: Headaches, Migraines Musculoskeletal: reports: Chronic back pain Endocrine/Autoimmune: reports: None Blood Disorders: reports: None Skin: reports: None Smoking Status: Current every day smoker (1/4 pack per day for 4 years) Psychosocial: reports: Depression, Anxiety, Cannabis (daily), Other (PTSD) - Surgical History Eyes Ears Nose Throat (EENT): Tonsil/Adenoidectomy Gynecologic: Dilation and currettage Exam General: Alert, Oriented x3, Cooperative, Mild distress (Very anxious) Dental: WNL, Poor dentition Mouth Openin Fingerbreadth Neck Mobility: Normal Mallampati classification: I Thyromental Distance: 4-6 cm Respiratory: Lungs clear, Normal breath sounds, No respiratory distress, No accessory muscle use Cardiovascular: Regular rate, Normal S1, Normal S2, No murmurs Mental/Cognitive Status: Alert/Oriented X3, Normal for patient Plan Anesthesia Type: General Consent for Procedure(s) Verified and Reviewed: Yes Code Status: Attempt Resuscitation ASA classification: 2-Mild systemic disease Is this case an emergency?: No
[2019-12-29] MEDS ORDERED: fentaNYL 100 MCG/2 ML VIAL ONE (13:10)
[2019-12-29] MEDS ORDERED: BUPIVACAINE 0.25% PF 30 ML VIAL SUBQ ONE (14:05)
[2019-12-29] MEDS ORDERED: KETOROLAC 30 MG/ML VIAL ONE (14:28)
[2019-12-29] MEDS ORDERED: oxyCODONE 5 MG TABLET PO PRN (14:39)
--- NOTE | 2019-12-29 14:43 | OPERATIVE REPORT ---
Operative Report - General Procedure Date: 12/29/19 Planned Procedure: Hysteroscopic retrieval of IUD Diagnostic hysteroscopy Pre-Op Diagnosis: Retained IUD with missing IUD strings, pelvic pain Procedure Performed: Exam under anesthesia IUD removal Diagnostic hysteroscopy Post Op Diagnosis: Same and removal of IUD - Procedure Note Primary Surgeon: Honey Don MD Anesthesia Provider: Radha Escobedo CRNA Anesthesia Technique: General LMA Pathology: None IV Fluids (mL): 400 Estimated Blood Loss (mL): 5 Urine Output (mL): 0 (voided prior to procedure) Indications: Patient is a 29 yo with pelvic pain requesting removal of IUD for pain relief. IUD strings are not visualized at the cervical os and patient refused attempt at intrauterine removal in clinic. She presents today to likely hysteroscopic retrieval of IUD and diagnostic hysteroscopy. Findings: IUD was removed and found to be intact. Hysteroscopy revealed normal uterine cavity with bilateral tubal ostia visualized. Complications: none - Other Other Information/Narrative: Risks benefits and alternatives to the procedure were reviewed. Consent was again confirmed. Patient was taken to the operating room where she underwent general anesthesia. She was positioned in dorsolithotomy position with legs resting in yellowfin stirrups. She was prepped and draped in the usual sterile fashion. Preoperative antibiotics were not indicated. Preoperative checklist was performed. Exam under anesthesia was performed. Speculum was placed in the vagina and the cervix was visualized. Single-tooth tenaculum was placed at the anterior cervical lip. Paracervical block was administered using a total of 20 cc of 1% lidocaine with epinephrine was injected at the 4:00 and 8:00 positions lateral to the portio of the cervix. The cervical os was serially dilated with Hegar dilators to accommodate the caliber of the diagnostic hysteroscope. An IUD hook was inserted into the cavity and removed the IUD with minimal resistance. The hysteroscope was inserted and findings were noted as above. After diagnostic hysteroscopy was complete, the hysteroscope was removed from the uterus. Tenaculum was removed and tenacula sites were hemostatic. All instrument were removed form the vagina. Good hemostasis was noted. Procedure was well tolerated and without complication. Fluid deficit: 60 cc NS
[2019-12-29 15:47] VITALS: BP 109/51
== END 2019-12-29 10:19 | disposition home or self-care (01) ==
LOC: SDS 10:18
PROVIDERS: ATTEND Obstetrics & Gynecology
DX: N93.8 Other specified abnormal uterine and vaginal bleeding (principal); R10.2 Pelvic and perineal pain; N94.6 Dysmenorrhea, unspecified
CPT/HCPCS: 58562; 81025; 85025; A9270; J0131; J7120

== ENCOUNTER 2020-02-01 18:11 | Emergency (ER) | payer BC ==
[2020-02-01 18:34] LABS: BILIRUBIN,URINE NEGATIVE (NEGATIVE); GLUCOSE, URINE (UA) NEGATIVE (NEGATIVE); KETONES,URINE (UA) NEGATIVE (NEGATIVE); LEUKOCYTE ESTERASE, URINE NEGATIVE (NEGATIVE); NITRITE,URINE NEGATIVE (NEGATIVE); OCCULT BLOOD,URINE NEGATIVE (NEGATIVE); PROTEIN,URINE NEGATIVE (NEGATIVE); UROBILINOGEN,URINE 0.2 (NORMAL) E.U./dL (NORMAL)
[2020-02-01 18:38] LABS: CLARITY,URINE CLEAR (CLEAR); HCG UR QUAL NEGATIVE
[2020-02-01 19:10] LABS: BASOPHILS % (AUTO) 0.4 %; EOSINOPHILS # (AUTO) 0.2 10^3/uL (0.0-0.7); EOSINOPHILS % (AUTO) 1.9 %; LYMPHOCYTES # (AUTO) 3.6 10^3/uL (1.5-3.5); LYMPHOCYTES % (AUTO) 39.6 %; MEAN CORPUSCULAR HEMOGLOBIN 30.7 pg (27.0-31.0); MEAN CORPUSCULAR HGB CONC 32.9 g/dL (32.0-36.0); MEAN CORPUSCULAR VOLUME 93.4 fL (81.0-99.0); MEAN PLATELET VOLUME 9.5 fL (7.9-10.8); MONOCYTES # (AUTO) 0.5 10^3/uL (0.0-1.0); MONOCYTES % (AUTO) 5.2 %; NEUTROPHILS # (AUTO) 4.7 10^3/uL (1.5-6.6); NEUTROPHILS % (AUTO) 52.6 %; PLT - PLATELET COUNT 268 10^3/uL (130-450); RED BLOOD COUNT 4.56 10^6/uL (4.20-5.40); RED CELL DISTRIBUTION WIDTH 12.7 % (12.0-15.0)
[2020-02-01 19:21] LABS: ALBUMIN 3.9 g/dL (3.2-5.5); ALBUMIN/GLOBULIN RATIO 1.1 (1.0-2.2); BILIRUBIN,TOTAL 0.6 mg/dL (0.2-1.0); CREATININE 0.7 mg/dL (0.4-1.0); TOTAL PROTEIN 7.6 g/dL (6.7-8.2)
[2020-02-01] MEDS ORDERED: KETOROLAC 60 MG/2 ML VIAL IM STA (20:12)
[2020-02-01] MEDS ORDERED: ONDANSETRON ODT 4 MG TABLET TL STA (20:12)
--- NOTE | 2020-02-01 20:19 | ED Physician Documentation ---
PD HPI ABD PAIN - Stated complaint Stated Complaint: LOWER BACK/ABD PX - Chief complaint Chief Complaint: Abd Pain - History obtained from History obtained from: Patient - History of Present Illness Timing - onset: Enter time (04:00), Yesterday Timing - details: Gradual onset Pain level now: 7 Quality: Pain Location: LLQ Radiation: Left flank Improved by: Laying still Worsened by: Moving, Palpation Associated symptoms: Nausea, Vomiting. No: Fever, Diarrhea, Constipation Similar symptoms before: Other (left back and flank pain is not familiar, although she believes the LLQ pain is linda to previous pain associated with ovarian cysts) - Additional information Additional information: c/o left lower back/left flank pain radiating around to LLQ since 4 AM yesterday. She says she contacted PMD's office today for appointment but nothing available for several days. She then went to a walk-in but was told that she would likely need an US and was directed to come to this ED for expeditious w/u Review of Systems Constitutional: denies: Fever, Chills, Sweats Cardiac: reports: Reviewed and negative Respiratory: reports: Reviewed and negative GI: reports: Abdominal Pain, Nausea, Vomiting. 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 , Ovarian cysts : Kidney stones HEENT: None Psych: Anxiety, Post traumatic stress disorder Musculoskeletal: Chronic back pain Derm: None - Past Surgical History Past Surgical History: Yes /CORRUGATED FASTENER DRIVER: Dilation and currettage HEENT: Tonsil/Adenoidectomy - Present Medications Home Medications: Ambulatory Orders Medication Instructions Recorded Confirmed Acetaminophen [Tylenol] 650 mg PO Q6H PRN 12/24/19 12/29/19 Hydrocodone/Acetaminophen 1 - 2 each PO Q6H PRN #14 tablet 02/01/20 [Hydrocodon-Acetaminophen 5-325] Ondansetron Odt [Zofran] 4 mg TL Q6H PRN #10 tablet 02/01/20 - Allergies Allergies/Adverse Reactions: Allergies Allergy/AdvReac Type Severity Reaction Status Date / Time No Known Drug Allergies Allergy Verified 02/01/20 18:13 - Social History Does the pt smoke?: No Smoking Status: Never smoker Does the pt drink ETOH?: Yes Does the pt have substance abuse?: Yes - Immunizations Immunizations are current?: Yes - POLST Patient has POLST: Yes PD ED PE NORMAL - Vitals Vital signs reviewed: Yes - General General: Alert and oriented X 3, No acute distress, Well developed/nourished - Cardiac Cardiac: RRR, No murmur - Respiratory Respiratory: No respiratory distress, Clear bilaterally - Abdomen Abdomen: Normal bowel sounds, Soft, Non tender, Non distended - Back Back: No CVA TTP - Derm Derm: No rash Results - Vitals Vitals: Vital Signs - 24 hr 02/01/20 02/01/20 02/01/20 18:14 19:08 21:17 Temperature 36.5 C 36.6 C 36.4 C L Heart Rate 60 60 50 L Heart Rate [ Sitting] Heart Rate [ Standing] Heart Rate [ Supine] Respiratory 16 13 17 Rate Blood Pressure 117/70 107/72 94/54 L Blood Pressure [Sitting] Blood Pressure [Standing] Blood Pressure [Supine] O2 Saturation 97 99 98 02/01/20 02/01/20 02/01/20 21:59 22:41 23:05 Temperature Heart Rate 45 L 52 L Heart Rate [ 54 L Sitting] Heart Rate [ 66 Standing] Heart Rate [ 44 L Supine] Respiratory 17 Rate Blood Pressure 80/40 L 101/58 L Blood Pressure 100/73 [Sitting] Blood Pressure 92/71 [Standing] Blood Pressure 115/66 [Supine] O2 Saturation 100 98 02/02/20 02/02/20 00:00 00:27 Temperature Heart Rate 56 L 72 Heart Rate [ Sitting] Heart Rate [ Standing] Heart Rate [ Supine] Respiratory 17 17 Rate Blood Pressure 101/65 124/71 Blood Pressure [Sitting] Blood Pressure [Standing] Blood Pressure [Supine] O2 Saturation 100 100 Oxygen O2 Source Room air - Labs Labs: Laboratory Tests 02/01/20 02/01/20 02/01/20 18:25 19:00 19:00 WBC 9.0 RBC 4.56 Hgb 14.0 Hct 42.6 MCV 93.4 MCH 30.7 MCHC 32.9 RDW 12.7 Plt Count 268 MPV 9.5 Neut # (Auto) 4.7 Lymph # (Auto) 3.6 H [place] # (Auto) 0.5 Eos # (Auto) 0.2 Baso # (Auto) 0.0 Absolute Nucleated RBC 0.00 Nucleated RBC % 0.0 Sodium 140 Potassium 3.6 Chloride 107 Carbon Dioxide 25 Anion Gap 8.0 BUN 11 Creatinine 0.7 Estimated GFR (MDRD) 98 Glucose 111 H Calcium 9.0 Total Bilirubin 0.6 AST 22 ALT 36 Alkaline Phosphatase 93 Total Protein 7.6 Albumin 3.9 Globulin 3.7 Albumin/Globulin Ratio 1.1 Lipase 79 H Urine Color YELLOW Urine Clarity CLEAR Urine pH 5.0 Ur Specific [place] >=1.030 H Urine Protein NEGATIVE Urine Glucose (UA) NEGATIVE Urine Ketones NEGATIVE Urine Occult Blood NEGATIVE Urine Nitrite NEGATIVE Urine Bilirubin NEGATIVE Urine Urobilinogen 0.2 (NORMAL) Ur Leukocyte Esterase NEGATIVE Ur Microscopic Review NOT INDICATED Urine Culture Comments NOT INDICATED Urine HCG, Qual NEGATIVE - Rads (name of study) CT A/P Radiology: Prelim report reviewed, See rad report PD MEDICAL DECISION MAKING - ED course Complexity details: reviewed results, re-evaluated patient, considered differential, d/w patient Departure - Departure Disposition: 01 Home, Self Care Clinical Impression: Flank pain Condition: Good Instructions: ED Flank Pain Uncertain Cause Follow-Up: Anaya Clarke ARNP [Primary Care Provider] - Prescriptions: Hydrocodone/Acetaminophen [Hydrocodon-Acetaminophen 5-325] 1 - 2 each PO Q6H PRN #14 tablet PRN Reason: pain Ondansetron Odt [Zofran] 4 mg TL Q6H PRN #10 tablet PRN Reason: Nausea / Vomiting Discharge Date/Time: 02/02/20 00:38
--- NOTE | 2020-02-01 21:15 | CT Report ---
PROCEDURE: Abdomen/Pelvis WO INDICATIONS: left flank pain TECHNIQUE: Noncontrast 5 mm thick sections acquired from the diaphragms to the symphysis. 5 mm coronal and sagi ttal reformats were then performed. For radiation dose reduction, the following was used: automated exposure control, adjustment of mA and/or kV according to patient size. COMPARISON: CT abdomen pelvis 08/06/2019. FINDINGS: Image quality: Excellent. ABDOMEN: Lung bases: Lung bases are clear. Heart size is normal. Solid organs: Liver and spleen are normal in size. Gallbladder is contracted, limiting evaluation. It is grossly unremarkable Pancreas is normal in contours. No adrenal nodules. Kidneys are normal in size, without hydronephrosis. There is a questionable punctate right renal calculus noted. Peritoneum and bowel: Unenhanced bowel loops demonstrate normal wall thickness and caliber. No free fluid or air. Nodes and vessels: No retroperitoneal or mesenteric adenopathy by size criteria. Aorta and inferior vena cava are normal in caliber. Miscellaneous: No ventral hernias. PELVIS: Genitourinary: Bladder wall thickness is normal. Miscellaneous: No inguinal hernias or adenopathy. Bones: No suspicious bony lesions. No vertebral body compression fractures. IMPRESSION: Question multiple punctate right renal calcification. 2. No left renal, ureteral or bladder calculi. Reviewed by: Adelaide Kaiser MD on 02/01/2020 9:14 PM PDT Approved by: Adelaide Kaiser MD on 02/01/2020 9:14 PM PDT Station ID: [id number]
[2020-02-01] MEDS ORDERED: HYDROcod/ACETAM 5/325 MG TABLET PO STA ×2 (21:45→23:51)
[2020-02-01] MEDS ORDERED: SODIUM CHLORIDE 0.9% 1,000 ML IV STA ×2 (22:29→23:10)
[2020-02-02 00:27] VITALS: BP 124/71
== END 2020-02-02 00:38 | disposition home or self-care (01) ==
LOC: ED 18:11
DX: R10.32 Left lower quadrant pain (principal); M54.5 Low back pain; R11.2 Nausea with vomiting, unspecified
CPT/HCPCS: 36415; 74176; 80053; 81003; 81025; 83690; 85025; 96360; 96361; 96372; 99284; A9270; Q0162; 81001; 87086

== ENCOUNTER 2020-09-05 20:54 | Emergency (ER) | payer BC ==
[2020-09-05 21:15] LABS: BILIRUBIN,URINE NEGATIVE (NEGATIVE); GLUCOSE, URINE (UA) NEGATIVE (NEGATIVE); KETONES,URINE (UA) NEGATIVE (NEGATIVE); LEUKOCYTE ESTERASE, URINE NEGATIVE (NEGATIVE); NITRITE,URINE NEGATIVE (NEGATIVE); OCCULT BLOOD,URINE TRACE-INTA (NEGATIVE); PH,URINE 5.5 PH (5.0-7.5); PROTEIN,URINE NEGATIVE (NEGATIVE); UROBILINOGEN,URINE 0.2 (NORMAL) E.U./dL (NORMAL)
[2020-09-05 21:17] LABS: CLARITY,URINE CLEAR (CLEAR); HCG UR QUAL NEGATIVE
[2020-09-05 21:23] LABS: BASOPHILS # (AUTO) 0.1 10^3/uL (0.0-0.1); BASOPHILS % (AUTO) 0.5 %; EOSINOPHILS # (AUTO) 0.3 10^3/uL (0.0-0.7); EOSINOPHILS % (AUTO) 2.8 %; HGB - HEMOGLOBIN 14.3 g/dL (12.0-16.0); LYMPHOCYTES # (AUTO) 3.5 10^3/uL (1.5-3.5); LYMPHOCYTES % (AUTO) 36.7 %; MEAN CORPUSCULAR HEMOGLOBIN 30.8 pg (27.0-31.0); MEAN CORPUSCULAR HGB CONC 33.2 g/dL (32.0-36.0); MEAN CORPUSCULAR VOLUME 92.9 fL (81.0-99.0); MEAN PLATELET VOLUME 9.1 fL (7.9-10.8); MONOCYTES # (AUTO) 0.6 10^3/uL (0.0-1.0); NEUTROPHILS # (AUTO) 5.1 10^3/uL (1.5-6.6); NEUTROPHILS % (AUTO) 53.8 %; PLT - PLATELET COUNT 268 10^3/uL (130-450); RED BLOOD COUNT 4.64 10^6/uL (4.20-5.40); RED CELL DISTRIBUTION WIDTH 12.8 % (12.0-15.0); WHITE BLOOD COUNT 9.6 x10^3/uL (4.8-10.8)
--- NOTE | 2020-09-05 21:35 | ED Physician Documentation ---
PD HPI ABD PAIN - Stated complaint Stated Complaint: FEMALE , LOWER ADB PX - Chief complaint Chief Complaint: Abd Pain - History obtained from History obtained from: Patient - History of Present Illness Timing - onset: How many weeks ago Timing - details: Gradual onset, Waxing and waning Pain level now: 6 Quality: Pain Location: Other (across lower abdomen) Radiation: Lower back, Left flank, Right flank Associated symptoms: No: Fever, Nausea, Vomiting, Diarrhea, Constipation Recently seen: Not recently seen - Additional information Additional information: patient states "UTI symptoms all week", described urinary urgency with one episode when she didn't make it to the bathroom in time (urinary incontinence), and urinary frequency with suprapubic cramping pain immediately after urinating. She has developed intermittent cramping pain across lower abdomen x 3-4 days which radiates to bilateral flank and bilateral lower back. She feels this is similar to previous "kidney issues", although she refers to both a h/o kidney stones as well as kidney infections. She says she could not get into see her PMD because her car is being repaired and thus had to wait until her was finished with work to drive her to ED Review of Systems Constitutional: reports: Chills. denies: Fever, Sweats Cardiac: reports: Reviewed and negative Respiratory: reports: Reviewed and negative GI: reports: Abdominal Pain, Nausea. denies: Vomiting, Constipation, Diarrhea : reports: Dysuria, Frequency. 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: Dilation and currettage HEENT: Tonsil/Adenoidectomy - Present Medications Home Medications: Ambulatory Orders Medication Instructions Recorded Confirmed HYDROcod/ACETAM 5/325 [[place] 5/325] 1 - 2 ea PO Q6H PRN #10 09/05/20 - Allergies Allergies/Adverse Reactions: Allergies Allergy/AdvReac Type Severity Reaction Status Date / Time No Known Drug Allergies Allergy Verified 09/05/20 20:58 - Social History Does the pt smoke?: Yes Smoking Status: Current every day smoker Does the pt drink ETOH?: Yes Does the pt have substance abuse?: Yes Substance Use and Type: Marijuana - Immunizations Immunizations are current?: Yes - POLST Patient has POLST: Yes PD ED PE NORMAL - Vitals Vital signs reviewed: Yes - General General: Alert and oriented X 3, No acute distress, Well developed/nourished - Cardiac Cardiac: RRR, No murmur - Respiratory Respiratory: No respiratory distress, Clear bilaterally - Abdomen Abdomen: Soft, Non distended, Other (mild TTP across lower abdomen without rebound or guarding) - Back Back: No CVA TTP - Derm Derm: Normal color, Warm and dry Results - Vitals Vitals: Vital Signs - 24 hr 09/05/20 09/05/20 20:58 22:28 Temperature 36.6 C 37.0 C Heart Rate 83 65 Respiratory 16 16 Rate Blood Pressure 139/77 H 113/64 O2 Saturation 97 98 Oxygen O2 Source Room air - Labs Labs: Laboratory Tests 09/05/20 09/05/20 09/05/20 21:03 21:16 21:16 WBC 9.6 RBC 4.64 Hgb 14.3 Hct 43.1 MCV 92.9 MCH 30.8 MCHC 33.2 RDW 12.8 Plt Count 268 MPV 9.1 Neut # (Auto) 5.1 Lymph # (Auto) 3.5 [place] # (Auto) 0.6 Eos # (Auto) 0.3 Baso # (Auto) 0.1 Absolute Nucleated RBC 0.00 Nucleated RBC % 0.0 Sodium 139 Potassium 3.5 Chloride 106 Carbon Dioxide 23 Anion Gap 10.0 BUN 14 Creatinine 0.7 Estimated GFR (MDRD) 97 Glucose 103 H Calcium 9.7 Total Bilirubin 0.4 AST 15 ALT 23 Alkaline Phosphatase 79 Total Protein 7.2 Albumin 3.8 Globulin 3.4 Albumin/Globulin Ratio 1.1 Lipase 32 Urine Color YELLOW Urine Clarity CLEAR Urine pH 5.5 Ur Specific [place] >=1.030 H Urine Protein NEGATIVE Urine Glucose (UA) NEGATIVE Urine Ketones NEGATIVE Urine Occult Blood TRACE-INTA Urine Nitrite NEGATIVE Urine Bilirubin NEGATIVE Urine Urobilinogen 0.2 (NORMAL) Ur Leukocyte Esterase NEGATIVE Ur Microscopic Review NOT INDICATED Urine Culture Comments NOT INDICATED Urine HCG, Qual NEGATIVE PD MEDICAL DECISION MAKING - ED course Complexity details: reviewed old records, reviewed results, re-evaluated patient, considered differential, d/w patient ED course: unremarkable blood test results and only trace blood on UA; she has mild TTP across lower abdomen without rebound or guarding. We discussed option of CT, possibly renal colic although bilateral nature of pain makes this unlikely, and UTI/pyelonephritis also unlikely given the UA results. Patient prefers to hold off on CT until and unless her symptoms worsen or if she develops other concerning signs/symptoms (such as fever). Departure - Departure Disposition: 01 Home, Self Care Clinical Impression: Dysuria Abdominal pain Qualifiers: Abdominal location: lower abdomen, unspecified Qualified Code(s): R10.30 - Lower abdominal pain, unspecified Condition: Good Instructions: ED Abdominal Pain Unkn Cause, ED Dysuria Uncertain Cause Prescriptions: HYDROcod/ACETAM 5/325 [[place] 5/325] 1 - 2 ea PO Q6H PRN #10 PRN Reason: Pain Comments: Follow up with your primary care provider, next available appointment Discharge Date/Time: 09/05/20 22:29
[2020-09-05 21:36] LABS: ALBUMIN 3.8 g/dL (3.2-5.5); ALBUMIN/GLOBULIN RATIO 1.1 (1.0-2.2); BILIRUBIN,TOTAL 0.4 mg/dL (0.2-1.0); CALCIUM 9.7 mg/dL (8.5-10.3); CREATININE 0.7 mg/dL (0.4-1.0); TOTAL PROTEIN 7.2 g/dL (6.7-8.2)
[2020-09-05] MEDS ORDERED: HYDROcod/ACETAM 5/325 MG TABLET PO STA (22:08)
[2020-09-05 22:29] VITALS: BP 113/64
== END 2020-09-05 22:29 | disposition home or self-care (01) ==
LOC: ED 20:54
DX: R30.0 Dysuria (principal); R10.30 Lower abdominal pain, unspecified; F17.200 Nicotine dependence, unspecified, uncomplicated
CPT/HCPCS: 36415; 80053; 81003; 81025; 83690; 85025; 99283; 99284; A9270; 81001; 87086

== ENCOUNTER 2020-10-13 03:32 | Emergency (ER) | payer SELFPAY ==
--- NOTE | 2020-10-13 03:47 | ED Physician Documentation ---
History of Present Illness - Stated complaint Stated Complaint: R LEG PX, R HAND PX - Chief complaint Chief Complaint: Trauma Ext - History obtained from History obtained from: Patient - History of Present Illness Timing: Enter time (00:00 (approximately midnight)), Today Pain level now: 7 Improved by: rest Worsened by: ambulation (weight-bearing on RLE), palpation, movement - Additonal information Additional information: patient says that at approximately midnight tonight she was walking on her deck when a piece of the deck she stepped on gave way, causing her to fall through the hole created by the piece of deck breaking. Her RLE went through the hole, she c/o right tib/fib pain (lateral and medial aspects of proximal lower leg), and pain right hand at thenar eminence. She is right-hand dominant. Denies other injury, denies head injury. Review of Systems Skin: denies: Laceration (s) Musculoskeletal: reports: Extremity pain, Pain with weight bearing. 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 , Ovarian cysts : Kidney stones HEENT: None Psych: Anxiety, Post traumatic stress disorder Musculoskeletal: Chronic back pain Derm: None - Past Surgical History Past Surgical History: Yes /PRODUCT MANAGER MEDICAL DEVICE: Dilation and currettage HEENT: Tonsil/Adenoidectomy - Present Medications Home Medications: Ambulatory Orders Medication Instructions Recorded Confirmed HYDROcod/ACETAM 5/325 [[place] 5/325] 1 - 2 tablet PO Q6H PRN #10 tablet 10/13/20 - Allergies Allergies/Adverse Reactions: Allergies Allergy/AdvReac Type Severity Reaction Status Date / Time No Known Drug Allergies Allergy Verified 10/13/20 03:44 - Social History Does the pt smoke?: Yes Smoking Status: Current every day smoker Does the pt drink ETOH?: Yes Does the pt have substance abuse?: Yes - Immunizations Immunizations are current?: Yes - POLST Patient has POLST: Yes PD ED PE NORMAL - Vitals Vital signs reviewed: Yes - General General: Alert and oriented X 3, No acute distress, Well developed/nourished - Derm Derm: Normal color - Neuro Neuro: No motor deficit, No sensory deficit, Other (both RUE and RLE are NVI distally) PD ED PE EXPANDED - Extremities CARLOS UE/Hands Visual: 1 - tenderness CARLOS LE visual: 1 - tenderness (mild erythema; TTP lateral and medial aspects of proximal lower leg) Results - Vitals Vitals: Vital Signs - 24 hr 10/13/20 10/13/20 03:41 05:30 Temperature 36.0 C L 36.5 C Heart Rate 77 84 Respiratory 20 18 Rate Blood Pressure 105/70 102/68 O2 Saturation 96 98 Oxygen O2 Source Room air - Rads (name of study) right hand xrays Radiology: Prelim report reviewed, See rad report right tib/fib xrays Radiology: Prelim report reviewed, See rad report PD MEDICAL DECISION MAKING - ED course Complexity details: reviewed results, re-evaluated patient, considered differential, d/w patient ED course: no acute/emergent findings on xrays (right hand, right tib/fib) including no fracture. On reevaluation she tells me she had adequate relief with IM toradol. Despite this, she appears to be in more painful distress than when I first evaluated her and thus I offered vicodin rx with dose now and she agrees with this. Departure - Departure Disposition: 01 Home, Self Care Clinical Impression: Sprain of hand, right, Contusion of lower leg, right Condition: Good Instructions: ED Contusion Lower Ext, ED Sprain Hand Prescriptions: HYDROcod/ACETAM 5/325 [[place] 5/325] 1 - 2 tablet PO Q6H PRN #10 tablet PRN Reason: Pain Discharge Date/Time: 10/13/20 05:35
[2020-10-13] MEDS ORDERED: KETOROLAC 60 MG/2 ML VIAL IM STA (04:05)
[2020-10-13] MEDS ORDERED: HYDROcod/ACETAM 5/325 MG TABLET PO STA (05:18)
[2020-10-13 05:43] VITALS: BP 102/68
--- NOTE | 2020-10-13 09:02 | XRAY Report ---
PROCEDURE: Hand 3 View RT INDICATIONS: fall, injury TECHNIQUE: 3 views of the hand(s) acquired. COMPARISON: None. FINDINGS: Bones: No fractures or dislocations. No suspicious bony lesions. Soft tissues: No suspicious soft tissue calcifications. IMPRESSION: No definite fracture however follow-up radiographs in 10 days could be performed if the patient's sym ptoms do not improve to exclude occult fracture/assess for healing sclerosis. Findings are concordant with the preliminary study interpretation provided at the time of the study. Reviewed by: James Fowler MD on 10/13/2020 9:01 AM PDT Approved by: James Fowler MD on 10/13/2020 9:01 AM PDT Station ID: [id number]
--- NOTE | 2020-10-13 09:10 | XRAY Report ---
PROCEDURE: Tib/Fib RT INDICATIONS: fall, pain, tenderness TECHNIQUE: 2 views of the tibia and fibula were acquired. COMPARISON: None. FINDINGS: Bones: No fractures or dislocations. No suspicious bony lesions. Posterior calcaneal spurring. Soft tissues: No suspicious soft tissue calcifications or masses. IMPRESSION: No definite fracture however follow-up radiographs in 10 days could be performed if the patient's sym ptoms do not improve to exclude occult fracture/assess for healing sclerosis. Reviewed by: James Fowler MD on 10/13/2020 9:09 AM PDT Approved by: James Fowler MD on 10/13/2020 9:09 AM PDT Station ID: [id number]
--- OUTSIDE RECORDS SUMMARY | 2020-10-18 01:25 | EXTERNAL MEDICAL SUMMARY RPT | Continuity of Care Document ---
:1990 Demographics Phone Unavailable Preferred Language Unknown Marital Status Unknown Confucianism Affiliation Unknown Race Unknown Ethnic Group Unknown Author Organization [facility] Address [address] [phone] Phone Social History date description facility [id number]
== END 2020-10-13 05:35 | disposition home or self-care (01) ==
LOC: ED 03:32
DX: S63.91XA Sprain of unspecified part of right wrist and hand, initial encounter (principal); S80.11XA Contusion of right lower leg, initial encounter; W13.3XXA Fall through floor, initial encounter; Y93.01 Activity, walking, marching and hiking; Y92.008 Other place in unspecified non-institutional (private) residence as the place of occurrence of the external cause; F17.200 Nicotine dependence, unspecified, uncomplicated
CPT/HCPCS: 73130; 73590; 96372; 99283; 99284; A9270

== ENCOUNTER 2021-02-25 16:29 | Emergency (ER) | payer SELFPAY ==
[2021-02-25 17:10] LABS: BASOPHILS % (AUTO) 0.6 %; EOSINOPHILS # (AUTO) 0.2 10^3/uL (0.0-0.7); EOSINOPHILS % (AUTO) 2.4 %; HCT - HEMATOCRIT 43.2 % (37.0-47.0); HGB - HEMOGLOBIN 14.2 g/dL (12.0-16.0); LYMPHOCYTES # (AUTO) 2.4 10^3/uL (1.5-3.5); LYMPHOCYTES % (AUTO) 37.5 %; MEAN CORPUSCULAR HEMOGLOBIN 30.5 pg (27.0-31.0); MEAN CORPUSCULAR HGB CONC 32.9 g/dL (32.0-36.0); MEAN CORPUSCULAR VOLUME 92.9 fL (81.0-99.0); MEAN PLATELET VOLUME 8.9 fL (7.9-10.8); MONOCYTES # (AUTO) 0.6 10^3/uL (0.0-1.0); NEUTROPHILS # (AUTO) 3.2 10^3/uL (1.5-6.6); NEUTROPHILS % (AUTO) 50.3 %; PLT - PLATELET COUNT 258 10^3/uL (130-450); RED BLOOD COUNT 4.65 10^6/uL (4.20-5.40); RED CELL DISTRIBUTION WIDTH 12.8 % (12.0-15.0); WHITE BLOOD COUNT 6.4 x10^3/uL (4.8-10.8)
[2021-02-25 17:24] LABS: ALBUMIN 4.2 g/dL (3.2-5.5); ALBUMIN/GLOBULIN RATIO 1.2 (1.0-2.2); BILIRUBIN,TOTAL 0.5 mg/dL (0.2-1.0); CALCIUM 9.3 mg/dL (8.5-10.3); CREATININE 0.7 mg/dL (0.4-1.0); TOTAL PROTEIN 7.6 g/dL (6.7-8.2)
[2021-02-25 19:10] LABS: BILIRUBIN,URINE NEGATIVE (NEGATIVE); GLUCOSE, URINE (UA) NEGATIVE (NEGATIVE); KETONES,URINE (UA) NEGATIVE (NEGATIVE); LEUKOCYTE ESTERASE, URINE NEGATIVE (NEGATIVE); NITRITE,URINE NEGATIVE (NEGATIVE); OCCULT BLOOD,URINE TRACE-INTA (NEGATIVE); PH,URINE 5.5 PH (5.0-7.5); PROTEIN,URINE NEGATIVE (NEGATIVE); UROBILINOGEN,URINE 0.2 (NORMAL) E.U./dL (NORMAL)
[2021-02-25 19:11] LABS: CLARITY,URINE CLEAR (CLEAR); HCG UR QUAL NEGATIVE
[2021-02-25] MEDS ORDERED: ONDANSETRON 4 MG/2 ML VIAL IVP STA (19:36)
[2021-02-25] MEDS ORDERED: HYDROmorphone 1 MG/ML CARPUJECT IVP STA (19:36)
[2021-02-25] MEDS ORDERED: SODIUM CHLORIDE 0.9% 1,000 ML IV STA (19:36)
--- NOTE | 2021-02-25 19:37 | ED Physician Documentation ---
PD HPI ABD PAIN - Stated complaint Stated Complaint: ABD PX - Chief complaint Chief Complaint: Abd Pain - History obtained from History obtained from: Patient - History of Present Illness Timing - onset: How many weeks ago (2) Timing - duration: Weeks (2) Timing - details: Waxing and waning Pain level max: 8 Pain level now: 6 Quality: Cramping, Aching Location: LUQ, LLQ Radiation: No: Chest, , Lower back, Left flank, Left shoulder, Right flank, Right shoulder, Upper back - Additional information Additional information: Patient is a 30-year-old female who presents to the emergency department with 2 weeks of left-sided abdominal pain. Worse with eating, drinking, palpation. Nothing makes it better. No diarrhea or constipation. Has never had similar symptoms previously. Described as an aching and cramping pain. Denies any possibility of . Does have PCOS and has had an ectopic before Review of Systems Ten Systems: 10 systems reviewed and negative Constitutional: denies: Fever, Chills GI: denies: Vomiting, Diarrhea, Hematemesis, Bloody / black stool : denies: Dysuria, Frequency, Hesitancy, Now EGA Skin: denies: Rash PD PAST MEDICAL HISTORY - Past Medical History Past Medical History: Yes Cardiovascular: None Respiratory: None Neuro: Headaches, Migraines Endocrine/Autoimmune: None GI: None ADULT CROSSING GUARD: Ectopic , Ovarian cysts : Kidney stones HEENT: None Psych: Anxiety, Post traumatic stress disorder Musculoskeletal: Chronic back pain Derm: None - Past Surgical History Past Surgical History: Yes /ADULT CROSSING GUARD: Dilation and currettage HEENT: Tonsil/Adenoidectomy - Present Medications Home Medications: Ambulatory Orders Medication Instructions Recorded Confirmed Famotidine [Pepcid] 20 mg PO BID #60 tablet 02/25/21 HYDROcod/ACETAM 5/325 [Robeline 5/325] 1 - 2 ea PO Q6H PRN #14 tablet 02/25/21 Ondansetron Odt [Zofran] 4 mg TL Q6H PRN #10 tablet 02/25/21 Sucralfate [Carafate] 1 gm PO ACHS #60 tablet 02/25/21 - Allergies Allergies/Adverse Reactions: Allergies Allergy/AdvReac Type Severity Reaction Status Date / Time No Known Drug Allergies Allergy Verified 02/25/21 16:51 - Social History Does the pt smoke?: Yes Smoking Status: Current every day smoker Does the pt drink ETOH?: Yes Does the pt have substance abuse?: Yes - Immunizations Immunizations are current?: Yes - POLST Patient has POLST: Yes PD ED PE NORMAL - Vitals Vital signs reviewed: Yes - General General: Alert and oriented X 3, No acute distress - HEENT HEENT: Moist mucous membranes - Neck Neck: Supple, no meningeal sign - Cardiac Cardiac: RRR, Strong equal pulses - Respiratory Respiratory: No respiratory distress, Clear bilaterally - Abdomen Abdomen: Soft, Non distended, Other (Tender palpation left upper, left lower quadrants. No peritoneal signs) - Back Back: No CVA TTP, No spinal TTP - Derm Derm: Warm and dry, No rash - Extremities Extremities: No edema - Neuro Neuro: Alert and oriented X 3 - Psych Psych: Normal mood, Normal affect Results - Vitals Vitals: Vital Signs - 24 hr 02/25/21 02/25/21 02/25/21 16:48 18:45 20:10 Temperature 36.2 C L Heart Rate 69 57 L 53 L Respiratory 16 20 16 Rate Blood Pressure 132/75 H 93/52 L 143/100 H O2 Saturation 96 97 96 02/25/21 02/25/21 02/25/21 20:48 21:03 21:43 Temperature 36.0 C L Heart Rate 63 52 L 52 L Respiratory 20 18 16 Rate Blood Pressure 91/50 L 95/57 L 91/47 L O2 Saturation 99 100 97 Oxygen O2 Source Room air - Labs Labs: Laboratory Tests 02/25/21 02/25/21 02/25/21 17:04 17:04 17:06 WBC 6.4 RBC 4.65 Hgb 14.2 Hct 43.2 MCV 92.9 MCH 30.5 MCHC 32.9 RDW 12.8 Plt Count 258 MPV 8.9 Neut # (Auto) 3.2 Lymph # (Auto) 2.4 [place] # (Auto) 0.6 Eos # (Auto) 0.2 Baso # (Auto) 0.0 Absolute Nucleated RBC 0.00 Nucleated RBC % 0.0 Sodium 142 Potassium 4.0 Chloride 109 Carbon Dioxide 24 Anion Gap 9.0 BUN 12 Creatinine 0.7 Estimated GFR (MDRD) 97 Glucose 95 Calcium 9.3 Total Bilirubin 0.5 AST 16 ALT 20 Alkaline Phosphatase 89 Total Protein 7.6 Albumin 4.2 Globulin 3.4 Albumin/Globulin Ratio 1.2 Lipase 30 Urine Color YELLOW Urine Clarity CLEAR Urine pH 5.5 Ur Specific [place] >=1.030 H Urine Protein NEGATIVE Urine Glucose (UA) NEGATIVE Urine Ketones NEGATIVE Urine Occult Blood TRACE-INTA Urine Nitrite NEGATIVE Urine Bilirubin NEGATIVE Urine Urobilinogen 0.2 (NORMAL) Ur Leukocyte Esterase NEGATIVE Ur Microscopic Review NOT INDICATED Urine Culture Comments NOT INDICATED Urine HCG, Qual NEGATIVE - Rads (name of study) Pelvic ultrasound Radiology: Prelim report reviewed (report from [facility]), EMP read contemporaneously, See rad report (No acute abnormality) ct Abdomen pelvis Radiology: Final report received, EMP read contemporaneously, See rad report (No acute abnormality, hepatic steatosis) PD MEDICAL DECISION MAKING - ED course Complexity details: reviewed results, re-evaluated patient, considered differential, d/w patient ED course: No acute findings on laboratory testing, abdomen pelvis CT, pelvic ultrasound. Does feel better after GI cocktail. Possible gastric ulcer versus gastritis. Will place on on medication for home for this. We will proceed to prescribe pain medication for home. Patient is well-appearing, nontoxic. Afebrile. Patient counseled regarding signs and symptoms for which I believe and urgent re-evaluation would be necessary. Patient with good understanding of and agreement to plan and is comfortable going home at this time This document was made in part using voice recognition software. While efforts are made to proofread this document, sound alike and grammatical errors may occur. Departure - Departure Disposition: 01 Home, Self Care Clinical Impression: Abdominal pain Qualifiers: Abdominal location: left lower quadrant Qualified Code(s): R10.32 - Left lower quadrant pain Condition: Good Instructions: ED Abdominal Pain Unkn Cause, ED PUD Vs Gastritis Follow-Up: Anaya Clarke ARNP [Primary Care Provider] - Within 1 week Prescriptions: Sucralfate [Carafate] 1 gm PO ACHS #60 tablet HYDROcod/ACETAM 5/325 [Robeline 5/325] 1 - 2 ea PO Q6H PRN #14 tablet PRN Reason: Pain Famotidine [Pepcid] 20 mg PO BID #60 tablet Ondansetron Odt [Zofran] 4 mg TL Q6H PRN #10 tablet PRN Reason: Nausea / Vomiting Comments: The cause of your symptoms is unclear today. There are no acute findings on your laboratory testing, urinalysis, CT scan or ultrasound to explain your symptoms. Please follow-up with your doctor for further care. I am prescribing a short course of narcotic pain medication for you. These are potentially dangerous and addictive medications that should be used carefully. These medications may constipate you. Take an iugj-sdd-twhqono stool softener (docusate) twice daily with plenty of water while taking these medications. If you go 24 hours without a bowel movement, take evff-xyo-eastnfh miralax, per package instructions. Do not drink or drive while taking these medications. If you received narcotic or sedating medications while in the emergency department, do not drive for 24 hours. Store this medication in a safe, secure place and out of reach of children. It is a violation of federal law to give or sell this medication to another person or to use in a manner other than prescribed. The ED will not refill narcotic prescriptions, including prescriptions lost or stolen. To dispose of unwanted medications: 1. [facility] at [address] in [place] has a medication drop box. They accept prescription medications (in pill form) Friday through Friday 9:00 a.m. to 5:00 p.m. 2. The [facility] accepts prescription medications (in pill form only) for disposal year round. Call for more informati on. 3. Contact the [facility] for the next [facility] sponsored prescription drug collection event. , [phone], or [phone];
[2021-02-25] MEDS ORDERED: IOPAMIDOL-300 100 ML VIAL ONE (19:51)
[2021-02-25] MEDS ORDERED: IOPAMIDOL-300 100 ML VIAL IVP ONE (20:51)
[2021-02-25] MEDS ORDERED: KETOROLAC 30 MG/ML VIAL IVP STA (21:01)
[2021-02-25] MEDS ORDERED: NALBUPHINE 10 MG/ML AMP IVP STA (21:45)
--- NOTE | 2021-02-25 21:54 | CT Report ---
PROCEDURE: Abdomen/Pelvis W INDICATIONS: LLQ abd pain CONTRAST: IV CONTRAST: Isovue 300 ml: 100 PO CONTRAST: *NO PO CONTRAST TECHNIQUE: After the administration of IV contrast, 5 mm thick sections acquired from the diaphragms to the symp hysis. 5 mm thick coronal and sagittal reformats were acquired. For radiation dose reduction, the f ollowing was used: automated exposure control, adjustment of mA and/or kV according to patient size. COMPARISON: None. FINDINGS: ABDOMEN: Lung bases: Normal Heart:Normal. Liver: Hepatic steatosis. Gallbladder: Normal. Bile ducts: Normal. Pancreas: Normal. Spleen: Normal. Adrenals: Normal. Kidneys and ureters: Normal. Stomach and duodenum: Normal. Bowel: Normal. Normal appendix. No evidence of acute diverticulitis. Other: No free fluid or air. Abdominal nodes: Normal. Aorta: Normal in size. IVC: Normal. Ventral wall: Normal. PELVIS: Bladder: Normal. Pelvic nodes: Normal. Inguinal: No hernia. Bones: No vertebral body compression fracture. No suspicious bone lesion. IMPRESSION: Overall, no acute abnormality. Normal appendix. No specific visualized etiology for left lower quadra nt pain. Hepatic steatosis Reviewed by: James Martinez MD on 02/25/2021 9:53 PM PDT Approved by: James Martinez MD on 02/25/2021 9:53 PM PDT Station ID: [id number]
[2021-02-25] MEDS ORDERED: LIDOCAINE VISCOUS 2% 15 ML UDC MM STA (22:03)
[2021-02-25] MEDS ORDERED: SUCRALFATE 1 GM/10 ML UDC PO STA (22:03)
[2021-02-25] MEDS ORDERED: MAG HYDROX/AL HYDROX/SIMETH 30 ML UDC PO STA (22:03)
[2021-02-25] MEDS ORDERED: FAMOTIDINE 20 MG TABLET PO STA (22:03)
[2021-02-25] MEDS ORDERED: FAMOTIDINE 20 MG TABLET ONE (22:14)
[2021-02-25 23:07] VITALS: BP 112/76
--- NOTE | 2021-02-25 23:24 | Ultrasound Report ---
PROCEDURE: Pelvic w/Transvag+Doppler Comp INDICATIONS: pelvic pain, L TECHNIQUE: Real-time scanning was performed of the pelvic organs, with image documentation. Additional endovagi nal scanning was necessary due to incomplete visualization of the adnexal and endometrial structures by transabdominal scanning. COMPARISON: 12/10/2019 FINDINGS: No pathologic free abdominal or pelvic fluid. Uterus: Uterus is normal in size at 7.9 x 3.6 x 4.2 cm. The endometrium measures 4 mm in combined t hickness. Ovaries: Right ovary not visualized. Left ovary measures 2.7 x 2.7 x 2.4 cm. Appropriate vascularity noted. Normal echotexture. Small shadowing calculus measures less than 3 mm. Greater than 12 follicl es present. Incidental dilated vasculature noted in the left adnexa. IMPRESSION: 1.. Greater than 12 follicles in an otherwise normal left ovary could reflect polycystic ovarian synd clarence in the proper clinical setting 2. Nonvisualized right ovary. 3. Unremarkable endometrial thickness. Reviewed by: Thierry Doshi MD on 02/25/2021 10:23 PM TONIA Approved by: Thierry Doshi MD on 02/25/2021 10:23 PM AKGUNNAR Station ID: [id number]
== END 2021-02-25 22:34 | disposition home or self-care (01) ==
LOC: ED 16:29
DX: R10.32 Left lower quadrant pain (principal); F17.200 Nicotine dependence, unspecified, uncomplicated
CPT/HCPCS: 36415; 74177; 76830; 76856; 80053; 81003; 81025; 83690; 85025; 93975; 96361; 96374; 96375; 99284; A9270; J1170; J2300; Q9967; 81001; 87086

== ENCOUNTER 2021-04-03 09:11 | Emergency (ER) | payer SELFPAY ==
[2021-04-03] MEDS ORDERED: HYDROcod/ACETAM 5/325 MG TABLET PO STA ×2 (09:50→10:34)
--- NOTE | 2021-04-03 09:51 | ED Physician Documentation ---
PD HPI ABD PAIN - Stated complaint Stated Complaint: LT SIDE ABD PX - Chief complaint Chief Complaint: Abd Pain - History obtained from History obtained from: Patient (G7, P4 with history of left-sided ectopic is 6 weeks with severe left-sided abdominal pain and pelvic pain since yesterday. 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: Ectopic , Ovarian cysts : Kidney stones HEENT: None Psych: Anxiety, Post traumatic stress disorder Musculoskeletal: Chronic back pain Derm: None - Past Surgical History Past Surgical History: Yes /CHIEF TECHNOLOGY OFFICER: Dilation and currettage HEENT: Tonsil/Adenoidectomy - Present Medications Home Medications: Ambulatory Orders Medication Instructions Recorded Confirmed Famotidine [Pepcid] 20 mg PO BID #60 tablet 02/25/21 HYDROcod/ACETAM 5/325 [[place] 5/325] 1 - 2 ea PO Q6H PRN #14 tablet 02/25/21 Ondansetron Odt [Zofran] 4 mg TL Q6H PRN #10 tablet 02/25/21 Sucralfate [Carafate] 1 gm PO ACHS #60 tablet 02/25/21 Oxycodone HCl/Acetaminophen 1 - 2 each PO Q6H PRN #14 tablet 04/03/21 [Percocet 5-325 mg Tablet] - Allergies Allergies/Adverse Reactions: Allergies Allergy/AdvReac Type Severity Reaction Status Date / Time No Known Drug Allergies Allergy Verified 04/03/21 09:34 - Social History Does the pt smoke?: Yes Smoking Status: Current every day smoker Does the pt drink ETOH?: Yes Does the pt have substance abuse?: Yes - Immunizations Immunizations are current?: Yes - POLST Patient has POLST: Yes PD ED PE NORMAL - Vitals Vital signs reviewed: Yes - General General: Alert and oriented X 3, No acute distress - HEENT HEENT: PERRL, EOMI - Neck Neck: Supple, no meningeal sign, No bony TTP - Cardiac Cardiac: RRR, No murmur - Respiratory Respiratory: No respiratory distress, Clear bilaterally - Abdomen Abdomen: Normal bowel sounds, Soft, Other (Tender left pelvic side with no surgical signs. No obvious IUP on bedside ultrasound.) - Back Back: No CVA TTP, No spinal TTP - Derm Derm: Normal color, Warm and dry - Extremities Extremities: No edema, No calf tenderness / cord - Neuro Neuro: Alert and oriented X 3, Normal speech Results - Vitals Vitals: Vital Signs - 24 hr 04/03/21 04/03/21 09:32 11:34 Temperature 36.6 C Heart Rate 76 57 L Respiratory 15 16 Rate Blood Pressure 115/59 L 112/72 O2 Saturation 97 99 Oxygen O2 Source Room air - Labs Labs: Laboratory Tests 04/03/21 04/03/21 04/03/21 09:55 10:09 10:09 WBC 9.5 RBC 4.30 Hgb 13.4 Hct 39.7 MCV 92.3 MCH 31.2 H MCHC 33.8 RDW 13.4 Plt Count 273 MPV 9.0 Neut # (Auto) 5.7 Lymph # (Auto) 3.1 [place] # (Auto) 0.5 Eos # (Auto) 0.1 Baso # (Auto) 0.0 Absolute Nucleated RBC 0.00 Nucleated RBC % 0.0 Sodium 139 Potassium 3.7 Chloride 108 Carbon Dioxide 22 Anion Gap 9.0 BUN 10 Creatinine 0.6 Estimated GFR (MDRD) 116 Glucose 123 H Calcium 9.1 Total Bilirubin 0.6 AST 20 ALT 30 Alkaline Phosphatase 67 Total Protein 7.0 Albumin 3.6 Globulin 3.4 Albumin/Globulin Ratio 1.1 Lipase 33 HCG, Quant Urine Color YELLOW Urine Clarity CLEAR Urine pH 7.0 Ur Specific [place] 1.020 Urine Protein NEGATIVE Urine Glucose (UA) NEGATIVE Urine Ketones NEGATIVE Urine Occult Blood NEGATIVE Urine Nitrite NEGATIVE Urine Bilirubin NEGATIVE Urine Urobilinogen 0.2 (NORMAL) Ur Leukocyte Esterase NEGATIVE Ur Microscopic Review NOT INDICATED Urine Culture Comments NOT INDICATED 04/03/21 10:09 WBC RBC Hgb Hct MCV MCH MCHC RDW Plt Count MPV Neut # (Auto) Lymph # (Auto) [place] # (Auto) Eos # (Auto) Baso # (Auto) Absolute Nucleated RBC Nucleated RBC % Sodium Potassium Chloride Carbon Dioxide Anion Gap BUN Creatinine Estimated GFR (MDRD) Glucose Calcium Total Bilirubin AST ALT Alkaline Phosphatase Total Protein Albumin Globulin Albumin/Globulin Ratio Lipase HCG, Quant 6902.00 Urine Color Urine Clarity Urine pH Ur Specific [place] Urine Protein Urine Glucose (UA) Urine Ketones Urine Occult Blood Urine Nitrite Urine Bilirubin Urine Urobilinogen Ur Leukocyte Esterase Ur Microscopic Review Urine Culture Comments PD MEDICAL DECISION MAKING - ED course ED course: 30-year-old woman presents for concern for left pelvic pain in . Ultrasound demonstrates visualization of IUP/yolk sac, no activity at this juncture. That said it is early enough that that would not be unexpected and patient was counseled on the need for repeat ultrasonography and follow-up. Departure - Departure Disposition: 01 Home, Self Care Clinical Impression: Cyst of ovary Qualifiers: Laterality: left Qualified Code(s): N83.202 - Unspecified ovarian cyst, left side Qualifiers: Weeks of gestation: less than 8 weeks Qualified Code(s): Z3A.01 - Less than 8 weeks gestation of Condition: Good Record reviewed to determine appropriate education?: Yes Instructions: ED Abdominal Pain Rule Out Ectopic, ED Preg Established Normal Sxs Follow-Up: [facility] [Provider Group] Prescriptions: Oxycodone HCl/Acetaminophen [Percocet 5-325 mg Tablet] 1 - 2 each PO Q6H PRN #14 tablet PRN Reason: pain Comments: Ultrasound today demonstrates what looks like a 5-week 4-day without complication except for a small subchorionic hemorrhage and a corpus luteum cyst on the left, this is likely the cause of your pain. You do need a repeat ul trasound and repeat blood work in 1 week to recheck. Return if worsening. Prescription sent electronically to [facility] [place] I am prescribing a short course of narcotic pain medication for you. These are potentially dangerous and addictive medications that should be used carefully. These medications may constipate you. Take an satk-ufk-iixielt stool softener (docusate) twice daily with plenty of water while taking these medications. If you go 24 hours without a bowel movement, take bixo-itg-pqdawwj miralax, per package instructions. Do not drink or drive while taking these medications. If you received narcotic or sedating medications while in the emergency department, do not drive for 24 hours. Store this medication in a safe, secure place and out of reach of children. It is a violation of federal law to give or sell this medication to another person or to use in a manner other than prescribed. The ED will not refill narcotic prescriptions, including prescriptions lost or stolen. To dispose of unwanted medications: 1. [facility] at [address] in [place] has a medication drop box. They accept prescription medications (in pill form) Friday through Friday 9:00 a.m. to 5:00 p.m. 2. The [facility] accepts prescription medications (in pill form only) for disposal year round. Call for more information. 3. Contact the [facility] for the next [facility] sponsored prescription drug collection event. , [phone], or [phone]; Note that many narcotic pain relievers also contain Tylenol/acetaminophen. Please ensure that your total dose of acetaminophen from all sources does not exceed 3 g (3000 mg) per day. Discharge Date/Time: 04/03/21 12:10
[2021-04-03 10:03] LABS: BILIRUBIN,URINE NEGATIVE (NEGATIVE); GLUCOSE, URINE (UA) NEGATIVE (NEGATIVE); KETONES,URINE (UA) NEGATIVE (NEGATIVE); LEUKOCYTE ESTERASE, URINE NEGATIVE (NEGATIVE); NITRITE,URINE NEGATIVE (NEGATIVE); OCCULT BLOOD,URINE NEGATIVE (NEGATIVE); PROTEIN,URINE NEGATIVE (NEGATIVE); UROBILINOGEN,URINE 0.2 (NORMAL) E.U./dL (NORMAL)
[2021-04-03 10:06] LABS: CLARITY,URINE CLEAR (CLEAR)
[2021-04-03 10:18] LABS: BASOPHILS % (AUTO) 0.3 %; EOSINOPHILS # (AUTO) 0.1 10^3/uL (0.0-0.7); EOSINOPHILS % (AUTO) 1.4 %; HCT - HEMATOCRIT 39.7 % (37.0-47.0); HGB - HEMOGLOBIN 13.4 g/dL (12.0-16.0); LYMPHOCYTES # (AUTO) 3.1 10^3/uL (1.5-3.5); LYMPHOCYTES % (AUTO) 32.6 %; MEAN CORPUSCULAR HEMOGLOBIN 31.2 pg (27.0-31.0); MEAN CORPUSCULAR HGB CONC 33.8 g/dL (32.0-36.0); MEAN CORPUSCULAR VOLUME 92.3 fL (81.0-99.0); MONOCYTES # (AUTO) 0.5 10^3/uL (0.0-1.0); NEUTROPHILS # (AUTO) 5.7 10^3/uL (1.5-6.6); NEUTROPHILS % (AUTO) 60.2 %; PLT - PLATELET COUNT 273 10^3/uL (130-450); RED CELL DISTRIBUTION WIDTH 13.4 % (12.0-15.0); WHITE BLOOD COUNT 9.5 x10^3/uL (4.8-10.8)
[2021-04-03] MEDS ORDERED: ONDANSETRON ODT 4 MG TABLET TL STA (10:34)
[2021-04-03 10:37] LABS: ALBUMIN 3.6 g/dL (3.2-5.5); ALBUMIN/GLOBULIN RATIO 1.1 (1.0-2.2); BILIRUBIN,TOTAL 0.6 mg/dL (0.2-1.0); CALCIUM 9.1 mg/dL (8.5-10.3); CREATININE 0.6 mg/dL (0.4-1.0); POTASSIUM 3.7 mmol/L (3.5-5.0)
[2021-04-03 11:46] VITALS: BP 112/72
--- NOTE | 2021-04-03 12:23 | Ultrasound Report ---
PROCEDURE: OB First Trimester INDICATIONS: L abd pain 6w OUTSIDE/PRIOR DATING DATA: Last menstrual period (LMP): 02/14/2021. LMP-based estimated date of delivery (VIVI): 11/21/2021. TECHNIQUE: Real-time scanning was performed of the fetus and maternal pelvic organs, with image documentation. COMPARISON: None. FINDINGS: Embryo: There is a single intrauterine gestation with estimated sonographic gestational age of appro ximately 5 weeks and 4 days based off mean gestational sac diameter of 0.77 cm. There is a normal yol k sac identified. There is a small 1.3 x 0.7 x 0.4 cm subchorionic hemorrhage. Heart rate: cardiac activity not identified. Measurement variability in dating: +/- 4 weeks by LMP, +/- 7 days by mean sac diameter (use before 6 weeks gestation if crown-rump length not able to be measured), +/- 5 days by crown-rump length (6-12 weeks gestation). Maternal organs: Ovaries appear unremarkable with incidental left corpus luteal cyst measuring appro ximately 2.6 cm. No suspicious ovarian or Mass lesions. No pelvic free fluid.. IMPRESSION: Single intrauterine gestation with estimated sonographic gestational age of approximately 5 weeks and 4 days based off mean gestational sac measurement. A yolk sac is identified. No cardiac activi ty visualized at this time. Recommend continued clinical surveillance and short interval follow-up ul trasound in 14 days to document expected progression of . Small perigestational hemorrhage. Reviewed by: Madhu Campbell MD on 04/03/2021 12:21 PM PDT Approved by: Madhu Campbell MD on 04/03/2021 12:21 PM PDT Station ID: [id number]
--- NOTE | 2021-04-03 12:24 | Ultrasound Report ---
PROCEDURE: OB Transvaginal INDICATIONS: L abd pain 6w TECHNIQUE: Real-time transvaginal scanning was performed of the fetus and maternal pelvic organs, with image doc umentation. COMPARISON: None. FINDINGS: OUTSIDE/PRIOR DATING DATA: Last menstrual period (LMP): 02/14/2021. LMP-based estimated date of delivery (VIVI): 11/21/2021. Embryo: There is a single intrauterine gestation with estimated sonographic gestational age of appro ximately 5 weeks and 4 days based off mean gestational sac diameter of 0.77 cm. There is a normal yol k sac identified. There is a small 1.3 x 0.7 x 0.4 cm subchorionic hemorrhage. Heart rate: cardiac activity not identified. Measurement variability in dating: +/- 4 weeks by LMP, +/- 7 days by mean sac diameter (use before 6 weeks gestation if crown-rump length not able to be measured), +/- 5 days by crown-rump length (6-12 weeks gestation). Maternal organs: Ovaries appear unremarkable with incidental left corpus luteal cyst measuring appro ximately 2.6 cm. No suspicious ovarian or Mass lesions. No pelvic free fluid.. IMPRESSION: Single intrauterine gestation with estimated sonographic gestational age of approximately 5 weeks and 4 days based off mean gestational sac measurement. A yolk sac is identified. No cardiac activi ty visualized at this time. Recommend continued clinical surveillance and short interval follow-up ul trasound in 14 days to document expected progression of . Small perigestational hemorrhage. Reviewed by: Madhu Campbell MD on 04/03/2021 12:22 PM PDT Approved by: Madhu Campbell MD on 04/03/2021 12:22 PM PDT Station ID: [id number]
== END 2021-04-03 12:10 | disposition home or self-care (01) ==
LOC: ED 09:11
DX: O34.81 Maternal care for other abnormalities of pelvic organs, first trimester (principal); N83.12 Corpus luteum cyst of left ovary; O99.331 Smoking (tobacco) complicating pregnancy, first trimester; F17.200 Nicotine dependence, unspecified, uncomplicated; Z3A.01 Less than 8 weeks gestation of pregnancy
CPT/HCPCS: 36415; 76801; 76817; 80053; 81003; 83690; 84702; 85025; 99283; 99284; A9270; Q0162; 81001; 87086

== ENCOUNTER 2021-04-12 11:58 | Emergency (ER) | payer MEDICAID ==
[2021-04-12 12:31] LABS: BILIRUBIN,URINE NEGATIVE (NEGATIVE); GLUCOSE, URINE (UA) NEGATIVE (NEGATIVE); KETONES,URINE (UA) NEGATIVE (NEGATIVE); LEUKOCYTE ESTERASE, URINE NEGATIVE (NEGATIVE); NITRITE,URINE NEGATIVE (NEGATIVE); OCCULT BLOOD,URINE NEGATIVE (NEGATIVE); PROTEIN,URINE NEGATIVE (NEGATIVE); UROBILINOGEN,URINE 0.2 (NORMAL) E.U./dL (NORMAL)
[2021-04-12 12:33] LABS: CLARITY,URINE CLEAR (CLEAR); HCG UR QUAL POSITIVE
[2021-04-12] MEDS ORDERED: ONDANSETRON 4 MG/2 ML VIAL IVP STA (13:18)
[2021-04-12] MEDS ORDERED: SODIUM CHLORIDE 0.9% 1,000 ML IV STA (13:18)
[2021-04-12] MEDS ORDERED: HYDROmorphone 1 MG/ML CARPUJECT IVP STA ×2 (13:27→14:37)
[2021-04-12 13:53] LABS: BASOPHILS % (AUTO) 0.4 %; EOSINOPHILS # (AUTO) 0.1 10^3/uL (0.0-0.7); HCT - HEMATOCRIT 40.9 % (37.0-47.0); HGB - HEMOGLOBIN 13.7 g/dL (12.0-16.0); LYMPHOCYTES # (AUTO) 2.8 10^3/uL (1.5-3.5); LYMPHOCYTES % (AUTO) 28.3 %; MEAN CORPUSCULAR HEMOGLOBIN 31.1 pg (27.0-31.0); MEAN CORPUSCULAR HGB CONC 33.5 g/dL (32.0-36.0); MEAN PLATELET VOLUME 9.3 fL (7.9-10.8); MONOCYTES # (AUTO) 0.6 10^3/uL (0.0-1.0); MONOCYTES % (AUTO) 6.5 %; NEUTROPHILS # (AUTO) 6.2 10^3/uL (1.5-6.6); NEUTROPHILS % (AUTO) 63.5 %; PLT - PLATELET COUNT 268 10^3/uL (130-450); RED CELL DISTRIBUTION WIDTH 13.3 % (12.0-15.0); WHITE BLOOD COUNT 9.8 x10^3/uL (4.8-10.8)
--- NOTE | 2021-04-12 14:03 | ED Physician Documentation ---
History of Present Illness - Stated complaint Stated Complaint: ABD PX, N/V - Chief complaint Chief Complaint: Abd Pain - Additonal information Additional information: 31-year-old female presents emergency department for evaluation of worsening left-sided abdominal pain. Currently G8, P4. Seen last week for similar found to have a left ovarian cyst as well as a subchorionic hemorrhage. She was prescribed some oxycodone but does not feel that it has improved her symptoms. She is also subsequently developed constipation using MiraLAX with moderate relief. She is denying any fevers, vaginal bleeding or discharge. No dysuria urgency or frequency. She is scheduled to follow-up on April 16 with OB at [place]. 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 , Ovarian cysts : Kidney stones HEENT: None Psych: Anxiety, Post traumatic stress disorder Musculoskeletal: Chronic back pain Derm: None - Past Surgical History Past Surgical History: Yes /SHRIMP TRAWLER: Dilation and currettage HEENT: Tonsil/Adenoidectomy - Present Medications Home Medications: Ambulatory Orders Medication Instructions Recorded Confirmed No Known Home Medications 04/12/21 04/12/21 - Allergies Allergies/Adverse Reactions: Allergies Allergy/AdvReac Type Severity Reaction Status Date / Time No Known Drug Allergies Allergy Verified 04/03/21 09:34 - Social History Does the pt smoke?: Yes Smoking Status: Current every day smoker Does the pt drink ETOH?: Yes Does the pt have substance abuse?: Yes - Immunizations Immunizations are current?: Yes - POLST Patient has POLST: Yes PD ED PE NORMAL - General General: Alert and oriented X 3, Well developed/nourished - HEENT HEENT: Atraumatic, Moist mucous membranes - Neck Neck: Supple, no meningeal sign - Cardiac Cardiac: RRR, No murmur - Respiratory Respiratory: Clear bilaterally - Abdomen Abdomen: Normal bowel sounds, Soft, Non tender (Tenderness along the left flank and left lower quadrant without guarding or rebound.). No: Non distended - Back Back: No CVA TTP, No spinal TTP - Derm Derm: Normal color, Warm and dry, No rash - Extremities Extremities: No deformity, No tenderness to palpate, Normal ROM s pain - Neuro Neuro: Alert and oriented X 3, cancer spec 2-12 intact Eye Opening: Spontaneous Motor: Obeys Commands Verbal: Oriented GCS Score: 15 - Psych Psych: Normal mood Results - Vitals Vitals: Vital Signs - 24 hr 04/12/21 04/12/21 12:01 15:12 Temperature 37.0 C Heart Rate 63 60 Respiratory 16 Rate Blood Pressure 120/62 109/57 L O2 Saturation 97 97 Oxygen O2 Source Room air - Labs Labs: Laboratory Tests 04/12/21 04/12/21 04/12/21 12:14 13:44 13:44 WBC 9.8 RBC 4.40 Hgb 13.7 Hct 40.9 MCV 93.0 MCH 31.1 H MCHC 33.5 RDW 13.3 Plt Count 268 MPV 9.3 Neut # (Auto) 6.2 Lymph # (Auto) 2.8 [place] # (Auto) 0.6 Eos # (Auto) 0.1 Baso # (Auto) 0.0 Absolute Nucleated RBC 0.00 Nucleated RBC % 0.0 Sodium 139 Potassium 3.9 Chloride 106 Carbon Dioxide 23 Anion Gap 10.0 BUN 9 Creatinine 0.5 Estimated GFR (MDRD) 142 Glucose 84 Calcium 9.4 Total Bilirubin 0.5 AST 18 ALT 32 Alkaline Phosphatase 76 Total Protein 7.6 Albumin 3.9 Globulin 3.7 Albumin/Globulin Ratio 1.1 Lipase 31 HCG, Quant Urine Color YELLOW Urine Clarity CLEAR Urine pH 6.0 Ur Specific [place] 1.015 Urine Protein NEGATIVE Urine Glucose (UA) NEGATIVE Urine Ketones NEGATIVE Urine Occult Blood NEGATIVE Urine Nitrite NEGATIVE Urine Bilirubin NEGATIVE Urine Urobilinogen 0.2 (NORMAL) Ur Leukocyte Esterase NEGATIVE Ur Microscopic Review NOT INDICATED Urine Culture Comments NOT INDICATED Urine HCG, Qual POSITIVE 04/12/21 13:44 WBC RBC Hgb Hct MCV MCH MCHC RDW Plt Count MPV Neut # (Auto) Lymph # (Auto) [place] # (Auto) Eos # (Auto) Baso # (Auto) Absolute Nucleated RBC Nucleated RBC % Sodium Potassium Chloride Carbon Dioxide Anion Gap BUN Creatinine Estimated GFR (MDRD) Glucose Calcium Total Bilirubin AST ALT Alkaline Phosphatase Total Protein Albumin Globulin Albumin/Globulin Ratio Lipase HCG, Quant 46189.00 Urine Color Urine Clarity Urine pH Ur Specific [place] Urine Protein Urine Glucose (UA) Urine Ketones Urine Occult Blood Urine Nitrite Urine Bilirubin Urine Urobilinogen Ur Leukocyte Esterase Ur Microscopic Review Urine Culture Comments Urine HCG, Qual - Rads (name of study) OB US Radiology: See rad report, Other (Per genetic technologist 6 weeks 2-day live IUP with associated left ovarian cyst and likely left corpus luteal cyst) PD MEDICAL DECISION MAKING - ED course Complexity details: reviewed results, re-evaluated patient, d/w patient, d/w energy sales consultant (Joey Marmolejo) ED course: 31-year-old female presents emergency department for evaluation of left-sided lower abdominal pain in the setting of first trimester . Does have a history of previous ectopic on the left side. Seen 1 week ago for similar. At that time ultrasound showed a left sided ovarian cyst. With an IUP. Today the ultrasound again demonstrates a corpus luteal and ovarian cyst with an IUP. Her hCG has increased from 6900 to nearly 43,000. The ultrasound is not consistent with an ectopic however given that this was this patient's second presentation for left-sided abdominal pain I did briefly discuss the case with on-call OB Dr. Don. She has very little suspicion that the case and presentation is related to an ectopic. She suspects that the patient is likely experiencing increased pain secondary to constipation with the oxycodone use. Patient is encouraged to use water, fiber as well as stool softeners to help promote bowel movement. Continue to follow-up with OB on Friday as scheduled. Emergent worrisome return precautions were discussed. Departure - Departure Disposition: Home, Self Care Clinical Impression: Left ovarian cyst, Left lower quadrant abdominal pain Normal IUP (intrauterine ) on ultrasound Qualifiers: Trimester: first trimester Qualified Code(s): Z34.91 - Encounter for supervision of normal , unspecified, first trimester Condition: Stable Record reviewed to determine appropriate education?: Yes Comments: You were seen today for abdominal pain in your first trimester of . The ultrasound shows that you are approximately 6 weeks 2 days . It does show the heart rate of approximately 120 bpm. You do have an associated left ovarian and corpus luteal cyst. Your hormone level in today was 43,000. This case was discussed briefly with Dr. Don. Your increasing pain on the lower side may be related to constipation secondary to the oxycodone use. I would recommend that you increase your water intake, consider taking Metamucil or other stool softener such as Colace. Continue to follow-up with OB on Friday as already scheduled. If you develop fevers, have uncontrolled pain or vomiting or feel faint or dizzy then please return immediately to the ER for a second evaluation
[2021-04-12 14:18] LABS: ALBUMIN 3.9 g/dL (3.2-5.5); ALBUMIN/GLOBULIN RATIO 1.1 (1.0-2.2); BILIRUBIN,TOTAL 0.5 mg/dL (0.2-1.0); CALCIUM 9.4 mg/dL (8.5-10.3); CREATININE 0.5 mg/dL (0.4-1.0); POTASSIUM 3.9 mmol/L (3.5-5.0); TOTAL PROTEIN 7.6 g/dL (6.7-8.2)
[2021-04-12 15:13] VITALS: BP 109/57
--- NOTE | 2021-04-12 16:28 | Ultrasound Report ---
PROCEDURE: OB First Trimester w/TV INDICATIONS: LEFT SIDED ABDOMINAL PAIN OUTSIDE/PRIOR DATING DATA: Last menstrual period (LMP): 02/14/2021. LMP-based estimated date of delivery (VIVI): 11/21/2021. First dating scan (date and location): 04/12/2021. Estimated date of delivery (VIVI) from first dating scan: 12/05/2024. The below data below was generated using the ultrasound VIVI of 12/05/2024 TECHNIQUE: Real-time scanning was performed of the fetus and maternal pelvic organs, with image documentation. Endovaginal scanning was also performed to better visualize the fetus and maternal ovaries. COMPARISON: OB ultrasound 04/03/2021 FINDINGS: Embryo: Single live intrauterine is identified with crown-rump length measuring 0.48 cm co rresponding to 6 weeks 1 day. Subchorionic hemorrhage is again noted appearing stable compared to pr ior exam. Heart rate: 119 bpm. Measurement variability in dating: +/- 4 weeks by LMP, +/- 7 days by mean sac diameter (use before 6 weeks gestation if crown-rump length not able to be measured), +/- 5 days by crown-rump length (6-12 weeks gestation). Maternal organs: Ovaries demonstrate a left corpus luteal cyst.. IMPRESSION: Single live intrauterine with stable appearance of subchorionic hemorrhage. Reviewed by: Adelaide Kaiser MD on 04/12/2021 4:27 PM PDT Approved by: Adelaide Kaiser MD on 04/12/2021 4:27 PM PDT Station ID: [id number]
== END 2021-04-12 17:05 | disposition home or self-care (01) ==
LOC: ED 11:58
DX: O34.81 Maternal care for other abnormalities of pelvic organs, first trimester (principal); N83.12 Corpus luteum cyst of left ovary; O99.331 Smoking (tobacco) complicating pregnancy, first trimester; Z3A.01 Less than 8 weeks gestation of pregnancy
CPT/HCPCS: 36415; 76801; 76817; 80053; 81003; 81025; 83690; 84702; 85025; 96361; 96374; 96375; 96376; 99284; J1170; 81001; 87086

== ENCOUNTER 2021-04-18 19:20 | Emergency (ER) | payer MEDICAID ==
[2021-04-18] MEDS ORDERED: ONDANSETRON 4 MG/2 ML VIAL IVP STA (19:53)
[2021-04-18] MEDS ORDERED: SODIUM CHLORIDE 0.9% 1,000 ML IV STA (19:53)
[2021-04-18] MEDS ORDERED: HYDROmorphone 1 MG/ML CARPUJECT IVP STA (19:53)
--- NOTE | 2021-04-18 20:24 | ED Physician Documentation ---
History of Present Illness - Stated complaint Stated Complaint: ABD PX/OB - Chief complaint Chief Complaint: Abd Pain - History obtained from History obtained from: Patient - History of Present Illness Timing: How many weeks ago (1) Pain level max: 10 Pain level now: 10 - Additonal information Additional information: 31 year old female with L sided abdominal pain x10 days. nothing makes it better or worse. no fevers. no chills. no nausea or vomiting. Patient is about 7-1/2 weeks . No vaginal bleeding or discharge. Has been seen x2 for similar pain. States the pain has not improved. 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 , Ovarian cysts : Kidney stones HEENT: None Psych: Anxiety, Post traumatic stress disorder Musculoskeletal: Chronic back pain Derm: None - Past Surgical History Past Surgical History: Yes /CLINICAL NURSE LEADER: Dilation and currettage HEENT: Tonsil/Adenoidectomy - Present Medications Home Medications: Ambulatory Orders Medication Instructions Recorded Confirmed Cimetidine 200 mg PO DAILY #30 tablet 04/18/21 Dicyclomine [Bentyl] 10 mg PO QID PRN #30 cap 04/18/21 Oxycodone HCl/Acetaminophen 1 - 2 each PO Q6H PRN #14 tablet 04/18/21 [Percocet 5-325 mg Tablet] Sucralfate [Carafate] 1 gm PO ACHS #60 tablet 04/18/21 - Allergies Allergies/Adverse Reactions: Allergies Allergy/AdvReac Type Severity Reaction Status Date / Time No Known Drug Allergies Allergy Verified 04/18/21 19:34 - Social History Does the pt smoke?: Yes Smoking Status: Current every day smoker Does the pt drink ETOH?: Yes Does the pt have substance abuse?: Yes - Immunizations Immunizations are current?: Yes - POLST Patient has POLST: Yes PD ED PE NORMAL - Vitals Vital signs reviewed: Yes - General General: Alert and oriented X 3, No acute distress, Well developed/nourished - HEENT HEENT: PERRL - Neck Neck: Supple, no meningeal sign - Cardiac Cardiac: RRR - Respiratory Respiratory: No respiratory distress, Clear bilaterally - Abdomen Abdomen: Normal bowel sounds, Soft, Non distended, Other (Tender to palpation left abdomen immediately the to the left of the umbilicus about 4 cm away. She points with one finger to where the spot is painful. No peritoneal signs) - Back Back: No spinal TTP - Derm Derm: Warm and dry - Extremities Extremities: No edema - Neuro Neuro: Alert and oriented X 3 - Psych Psych: Normal mood, Normal affect Results - Vitals Vitals: Vital Signs - 24 hr 04/18/21 04/18/21 19:30 19:56 Temperature 36.2 C L Heart Rate 78 55 L Respiratory 20 Rate Blood Pressure 120/47 L 128/73 O2 Saturation 99 97 Oxygen O2 Source Room air - Labs Labs: Laboratory Tests 04/18/21 04/18/21 04/18/21 20:30 20:44 20:44 WBC 9.5 RBC 4.02 L Hgb 12.3 Hct 37.2 MCV 92.5 MCH 30.6 MCHC 33.1 RDW 13.1 Plt Count 253 MPV 9.0 Neut # (Auto) 5.5 Lymph # (Auto) 3.3 [place] # (Auto) 0.6 Eos # (Auto) 0.1 Baso # (Auto) 0.0 Absolute Nucleated RBC 0.00 Nucleated RBC % 0.0 Sodium 135 Potassium 3.5 Chloride 104 Carbon Dioxide 24 Anion Gap 7.0 BUN 9 Creatinine 0.5 Estimated GFR (MDRD) 142 Glucose 100 Calcium 8.7 Total Bilirubin 0.3 AST 14 ALT 22 Alkaline Phosphatase 67 Total Protein 6.7 Albumin 3.3 Globulin 3.4 Albumin/Globulin Ratio 1.0 Lipase 35 Urine Color YELLOW Urine Clarity CLEAR Urine pH 6.5 Ur Specific [place] 1.010 Urine Protein NEGATIVE Urine Glucose (UA) NEGATIVE Urine Ketones NEGATIVE Urine Occult Blood NEGATIVE Urine Nitrite NEGATIVE Urine Bilirubin NEGATIVE Urine Urobilinogen 0.2 (NORMAL) Ur Leukocyte Esterase NEGATIVE Ur Microscopic Review NOT INDICATED Urine Culture Comments NOT INDICATED PD MEDICAL DECISION MAKING - ED course Complexity details: reviewed old records, reviewed results, re-evaluated patient, considered differential, d/w patient ED course: Bedside ultrasound reveals a intrauterine , heart rate 152 bpm. [place]-rump length of 7 weeks 4 days. Images were shown to the patient. Unclear etiology of the patient's pain. Suspicious for possible epiploic appendagitis. Patient is well-appearing, nontoxic. Afebrile. Pain did not improve much with a dose of Dilaudid. She does feel significantly better after a GI cocktail. Possible gastritis? We will place her on Carafate, cimetidine and Bentyl for home. She did seem to respond well to the Bentyl here as well. We will also prescribe a small amount of pain medication for home. I am prescribing a short course of short-acting opioid pain medication for this patient. I have reviewed the patients AUTOMATED MANUFACTURING INSTRUCTOR and no concerning findings were noted. I have discussed that the opioids are for short term therapy only, and will not be refilled from the ED. patient counseled regarding signs and symptoms for which I believe and urgent re-evaluation would be necessary. Patient with good understanding of and agreement to plan and is comfortable going home at this time This document was made in part using voice recognition software. While efforts are made to proofread this document, sound alike and grammatical errors may occur. Departure - Departure Disposition: Home, Self Care Clinical Impression: Abdominal pain Qualifiers: Abdominal location: unspecified location Qualified Code(s): R10.9 - Unspecified abdominal pain Normal IUP (intrauterine ) on ultrasound Qualifiers: Trimester: first trimester Qualified Code(s): Z34.91 - Encounter for supervision of normal , unspecified, first trimester Gastritis Qualifiers: Gastritis type: unspecified gastritis Chronicity: acute Gastritis bleeding: without bleeding Qualified Code(s): K29.00 - Acute gastritis without bleeding Condition: Good Instructions: ED Abdominal Pain Unkn Cause, ED PUD Vs Gastritis Follow-Up: Anaya Clarke ARNP [Primary Care Provider] - Within 1 week Prescriptions: Dicyclomine [Bentyl] 10 mg PO QID PRN #30 cap PRN Reason: Abdominal Pain Sucralfate [Carafate] 1 gm PO ACHS #60 tablet Cimetidine 200 mg PO DAILY #30 tablet Oxycodone HCl/Acetaminophen [Percocet 5-325 mg Tablet] 1 - 2 each PO Q6H PRN #14 tablet PRN Reason: pain Comments: Your prescriptions were sent to [facility] in [place]. This pain that you are having could have several etiologies. Likely it is representing GERD or gastritis. It could also be something such as epiploic appendagitis. Your laboratory testing is normal today. Your recent ultrasounds have not shown any acute abnormality. Please follow-up with your OB for further care. I am prescribing a short course of narcotic pain medication for you. These are potentially dangerous and addictive medications that should be used carefully. These medications may constipate you. Take an [id number] stool softener (docusate) twice daily with plenty of water while taking these medications. If you go 24 hours without a bowel movement, take [id number] miralax, per package instructions. Do not drink or drive while taking these medications. If you received narcotic or sedating medications while in the emergency department, do not drive for 24 hours. Store this medication in a safe, secure place and out of reach of children. It is a violation of federal law to give or sell this medication to another person or to use in a manner other than prescribed. The ED will not refill narcotic prescriptions, including prescriptions lost or stolen. To dispose of unwanted medications: 1. [facility] [address] [facility] [facility] in [place] has a medication drop box. They accept prescription medications (in pill form) Friday through Friday 9:00 a.m. to 5:00 p.m. 2. [facility] [employer] accepts prescription medications (in pill form only) for disposal year round. Call for more information. 3. Contact the [facility] for the next [facility] sponsored prescription drug collection event. , [phone], or [phone];
[2021-04-18 20:44] LABS: BILIRUBIN,URINE NEGATIVE (NEGATIVE); CLARITY,URINE CLEAR (CLEAR); GLUCOSE, URINE (UA) NEGATIVE (NEGATIVE); KETONES,URINE (UA) NEGATIVE (NEGATIVE); LEUKOCYTE ESTERASE, URINE NEGATIVE (NEGATIVE); NITRITE,URINE NEGATIVE (NEGATIVE); OCCULT BLOOD,URINE NEGATIVE (NEGATIVE); PH,URINE 6.5 PH (5.0-7.5); PROTEIN,URINE NEGATIVE (NEGATIVE); UROBILINOGEN,URINE 0.2 (NORMAL) E.U./dL (NORMAL)
[2021-04-18 20:56] LABS: BASOPHILS % (AUTO) 0.4 %; EOSINOPHILS # (AUTO) 0.1 10^3/uL (0.0-0.7); EOSINOPHILS % (AUTO) 1.1 %; HCT - HEMATOCRIT 37.2 % (37.0-47.0); HGB - HEMOGLOBIN 12.3 g/dL (12.0-16.0); LYMPHOCYTES # (AUTO) 3.3 10^3/uL (1.5-3.5); LYMPHOCYTES % (AUTO) 34.3 %; MEAN CORPUSCULAR HEMOGLOBIN 30.6 pg (27.0-31.0); MEAN CORPUSCULAR HGB CONC 33.1 g/dL (32.0-36.0); MEAN CORPUSCULAR VOLUME 92.5 fL (81.0-99.0); MONOCYTES # (AUTO) 0.6 10^3/uL (0.0-1.0); MONOCYTES % (AUTO) 5.8 %; NEUTROPHILS # (AUTO) 5.5 10^3/uL (1.5-6.6); NEUTROPHILS % (AUTO) 57.9 %; PLT - PLATELET COUNT 253 10^3/uL (130-450); RED BLOOD COUNT 4.02 10^6/uL (4.20-5.40); RED CELL DISTRIBUTION WIDTH 13.1 % (12.0-15.0); WHITE BLOOD COUNT 9.5 x10^3/uL (4.8-10.8)
[2021-04-18 21:06] LABS: ALBUMIN 3.3 g/dL (3.2-5.5); BILIRUBIN,TOTAL 0.3 mg/dL (0.2-1.0); CALCIUM 8.7 mg/dL (8.5-10.3); CREATININE 0.5 mg/dL (0.4-1.0); POTASSIUM 3.5 mmol/L (3.5-5.0); TOTAL PROTEIN 6.7 g/dL (6.7-8.2)
[2021-04-18] MEDS ORDERED: DICYCLOMINE 10 MG CAPSULE PO STA (21:23)
[2021-04-18] MEDS ORDERED: SUCRALFATE 1 GM/10 ML UDC PO STA (21:23)
[2021-04-18] MEDS ORDERED: MAG HYDROX/AL HYDROX/SIMETH 30 ML UDC PO STA (21:23)
[2021-04-18] MEDS ORDERED: BUPRENORPHINE 0.3 MG/ML VIAL IM ONE (21:24)
[2021-04-18 22:14] VITALS: BP 107/54
== END 2021-04-18 22:50 | disposition home or self-care (01) ==
LOC: ED 19:20
DX: O99.611 Diseases of the digestive system complicating pregnancy, first trimester (principal); K29.00 Acute gastritis without bleeding; O99.331 Smoking (tobacco) complicating pregnancy, first trimester; F17.200 Nicotine dependence, unspecified, uncomplicated; Z3A.01 Less than 8 weeks gestation of pregnancy
CPT/HCPCS: 36415; 80053; 81003; 83690; 85025; 96372; 96374; 96375; 99283; 99284; A9270; J0592; J1170; 81001; 87086

== ENCOUNTER 2021-12-13 03:08 | Emergency (ER) | payer MEDICAID ==
--- NOTE | 2021-12-13 04:11 | ED Physician Documentation ---
PD HPI HEADACHE - Stated complaint Stated Complaint: HEADACHE & VISION LOSS, - Chief complaint Chief Complaint: Heent - History obtained from History obtained from: Patient - Additional information Additional information: Patient is a 31-year-old female who is 1 week presenting for evaluation of a headache and right eye blurriness that has been present since 4 PM. Patient had an emergent 1 week ago.Her water had broken but when they started the Pitocin the baby did not tolerate it and required A . She was discharged home on Friday. She had gestational diabetes during the but her blood sugars were well controlled.She has had limitedActivity as she strained her left hip just prior to labor and is still recovering from that. Her is helping her with moving. She has mostly been in her bed feeding her baby and is breast-feeding.She does have a history of migraine headaches and does get an aura but this feels different She has medications for pain for her including Tylenol and Dilaudid which have controlled her abdominal pain but have not helped with her headache. She spoke to her primary care md in [place] who recommended she come to the emergency department for evaluation. Review of Systems Constitutional: denies: Fever Eyes: reports: Decreased vision (Right eye, blurred vision) Nose: denies: Congestion Cardiac: denies: Chest pain / pressure, Palpitations Respiratory: denies: Dyspnea, Cough GI: reports: Abdominal Pain (Mild around the incision). 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 , Ovarian cysts : Kidney stones HEENT: None Psych: Anxiety, Post traumatic stress disorder Musculoskeletal: Chronic back pain Derm: None - Past Surgical History Past Surgical History: Yes /BOOKING CLERK: section, Dilation and currettage HEENT: Tonsil/Adenoidectomy - Present Medications Home Medications: Ambulatory Orders Medication Instructions Recorded Confirmed Cimetidine 200 mg PO DAILY #30 tablet 04/18/21 Dicyclomine [Bentyl] 10 mg PO QID PRN #30 cap 04/18/21 Oxycodone HCl/Acetaminophen 1 - 2 each PO Q6H PRN #14 tablet 04/18/21 [Percocet 5-325 mg Tablet] Sucralfate [Carafate] 1 gm PO ACHS #60 tablet 04/18/21 - Allergies Allergies/Adverse Reactions: Allergies Allergy/AdvReac Type Severity Reaction Status Date / Time No Known Drug Allergies Allergy Verified 12/13/21 03:26 - Social History Does the pt smoke?: Yes Smoking Status: Current every day smoker Does the pt drink ETOH?: Yes Does the pt have substance abuse?: Yes - Immunizations Immunizations are current?: Yes - POLST Patient has POLST: Yes PD ED PE NORMAL - General General: Alert and oriented X 3, No acute distress, Well developed/nourished - HEENT HEENT: Atraumatic, PERRL, EOMI, Other (Photophobia) - Neck Neck: Supple, no meningeal sign - Cardiac Cardiac: RRR, No murmur, Strong equal pulses - Respiratory Respiratory: No respiratory distress, Clear bilaterally - Abdomen Abdomen: Normal bowel sounds, Soft, Non distended, Other (Well-healing low transverse incision from recent , Steri-Strips in place, no erythema or significant tenderness) - Extremities Extremities: No edema, Other (Left hip pain due to recent strain injury) - Neuro Neuro: Alert and oriented X 3, fire engineer 2-12 intact, No motor deficit (Difficulties with moving left leg at the hip due to recent strain but otherwise no motor deficits noted), No sensory deficit, Normal speech - Psych Psych: Normal mood Results - Vitals Vitals: Vital Signs - 24 hr 12/13/21 12/13/21 12/13/21 03:22 05:31 06:16 Temperature 37.0 C Heart Rate 78 64 65 Respiratory 17 18 16 Rate Blood Pressure 130/72 139/81 H 122/72 O2 Saturation 97 96 95 Oxygen O2 Source Room air - Labs Labs: Laboratory Tests 12/13/21 12/13/21 04:15 04:15 WBC 9.2 RBC 3.85 L Hgb 11.2 L Hct 34.8 L MCV 90.4 MCH 29.1 MCHC 32.2 RDW 14.1 Plt Count 359 MPV 8.6 Neut # (Auto) 4.9 Lymph # (Auto) 3.3 [place] # (Auto) 0.6 Eos # (Auto) 0.2 Baso # (Auto) 0.1 Absolute Nucleated RBC 0.00 Nucleated RBC % 0.0 Sodium 139 Potassium 3.8 Chloride 104 Carbon Dioxide 24 Anion Gap 11.0 BUN 15 Creatinine 0.7 Estimated GFR (MDRD) 96 Glucose 93 Calcium 9.1 Total Bilirubin 0.2 AST 27 ALT 40 Alkaline Phosphatase 111 Total Protein 7.0 Albumin 3.1 L Globulin 3.9 Albumin/Globulin Ratio 0.8 L PD MEDICAL DECISION MAKING - ED course Complexity details: reviewed results, re-evaluated patient ED course: 0515 - Pt feeling better, headache and vision symptoms have also improved. Patient presenting 1 week with headache and right visual disturbance. No focal deficits noted on exam. Blood pressure within normal limits.CT scan unremarkable. Labs reassuring. Blood pressure remained within normal limits with no evidence of preeclampsia. Patient did have improvement with migraine cocktail and visual disturbance also resolved as pain improved. Do not think her symptoms suggest a CVA,Dissection or venous thrombosis. Etiology appears to be a migraine. Patient was counseled on strict return precautions and is aware of need for Continue to follow-up with her midwives. Departure - Departure Disposition: 01 Home, Self Care Clinical Impression: Migraine Qualifiers: Migraine type: unspecified Status migrainosus presence: without status migrainosus Intractability: not intractable Qualified Code(s): G43.909 - Migraine, unspecified, not intractable, without status migrainosus Condition: Stable Instructions: ED Headache Migraine Comments: Jenna - Your symptoms today suggest a migraine headache. A brain CT was obtained which does not show any new findings. You were given medications through your IV which are all okay with breast-feeding. Your symptoms have improved with these medications. It is reassuring that your vision Has also improved as your pain has decreased. Your labs did not demonstrate any significant abnormalities. At this time I think you are safe for discharge. Please take plenty of rest And take your medications as prescribed. If any of your symptoms return or you have new symptoms such as chest pain or trouble breathing or weakness please return to the emergency department. Discharge Date/Time: 12/13/21 06:30
[2021-12-13 04:21] LABS: BASOPHILS # (AUTO) 0.1 10^3/uL (0.0-0.1); BASOPHILS % (AUTO) 0.9 %; EOSINOPHILS # (AUTO) 0.2 10^3/uL (0.0-0.7); EOSINOPHILS % (AUTO) 2.3 %; HCT - HEMATOCRIT 34.8 % (37.0-47.0); HGB - HEMOGLOBIN 11.2 g/dL (12.0-16.0); LYMPHOCYTES # (AUTO) 3.3 10^3/uL (1.5-3.5); MEAN CORPUSCULAR HEMOGLOBIN 29.1 pg (27.0-31.0); MEAN CORPUSCULAR HGB CONC 32.2 g/dL (32.0-36.0); MEAN CORPUSCULAR VOLUME 90.4 fL (81.0-99.0); MEAN PLATELET VOLUME 8.6 fL (7.9-10.8); MONOCYTES # (AUTO) 0.6 10^3/uL (0.0-1.0); MONOCYTES % (AUTO) 6.3 %; NEUTROPHILS # (AUTO) 4.9 10^3/uL (1.5-6.6); NEUTROPHILS % (AUTO) 53.6 %; PLT - PLATELET COUNT 359 10^3/uL (130-450); RED BLOOD COUNT 3.85 10^6/uL (4.20-5.40); RED CELL DISTRIBUTION WIDTH 14.1 % (12.0-15.0); WHITE BLOOD COUNT 9.2 x10^3/uL (4.8-10.8)
[2021-12-13] MEDS: METOCLOPRAMIDE 10 MG/2 ML VIAL IVP STA (04:25)
[2021-12-13] MEDS: diphenhydrAMINE INJ 50 MG/ML VIAL IVP STA (04:26)
[2021-12-13] MEDS: KETOROLAC 30 MG/ML VIAL IVP STA (04:27)
[2021-12-13 04:33] LABS: ALBUMIN 3.1 g/dL (3.2-5.5); ALBUMIN/GLOBULIN RATIO 0.8 (1.0-2.2); BILIRUBIN,TOTAL 0.2 mg/dL (0.2-1.0); CALCIUM 9.1 mg/dL (8.5-10.3); CREATININE 0.7 mg/dL (0.4-1.0); POTASSIUM 3.8 mmol/L (3.5-5.0)
[2021-12-13] MEDS: SODIUM CHLORIDE 0.9% 1,000 ML IV STA (04:55)
--- OUTSIDE RECORDS SUMMARY | 2021-12-13 05:31 | EXTERNAL MEDICAL SUMMARY RPT | Continuity of Care Document ---
:1990 Author Organization [place] Address [address] [id number] Phone Allergies No information. Encounters No information. Medications No information. Problems date description facility [id number] Pain in left hip [facility] [id number] Hip Pain [email or web address] [id number] *hip pain ,40weeks preg [facility] [employer] Results No information.
[2021-12-13 06:17] VITALS: BP 122/72
--- NOTE | 2021-12-13 07:17 | CT Report ---
PROCEDURE: HEAD WO INDICATIONS: headache; blurred vision TECHNIQUE: Noncontrast 4.5 mm thick angled axial sections acquired from the foramen magnum to the vertex. For r adiation dose reduction, the following was used: automated exposure control, adjustment of mA and/or kV according to patient size. COMPARISON: 08/06/2019 FINDINGS: Image quality: Excellent. CSF spaces: Basal cisterns are patent. No extra-axial fluid collections. Ventricles are normal in size and shape. Brain: No midline shift. No intracranial masses or hemorrhage. Marks-white matter interface is norm al. Skull and face: Calvarium and visualized facial bones are intact, without suspicious lesions. Sinuses: Persistent mucosal thickening of the bilateral maxillary sinuses more pronounced on the left . Overall, this appears less prominent compared to previous CT. Bilateral mastoids are clear. IMPRESSION: CT head without acute intracranial abnormalities. No mass or mass effect. Bilateral maxillary sinus disease. No significant discrepancy with initial interpretation by overnight radiologist. Reviewed by: Madhu Campbell MD on 12/13/2021 7:16 AM PDT Approved by: Madhu Campbell MD on 12/13/2021 7:16 AM PDT Station ID: [id number]
== END 2021-12-13 06:30 | disposition home or self-care (01) ==
LOC: ED 03:08
DX: O90.89 Other complications of the puerperium, not elsewhere classified (principal); G43.909 Migraine, unspecified, not intractable, without status migrainosus; O99.335 Smoking (tobacco) complicating the puerperium
CPT/HCPCS: 36415; 80053; 85025; 96374; 96375; 99282

== ENCOUNTER 2022-10-01 20:45 | Emergency (ER) | payer MEDICAID ==
--- OUTSIDE RECORDS SUMMARY | 2022-10-01 21:00 | EXTERNAL MEDICAL SUMMARY RPT | Continuity of Care Document ---
:1990 Author Organization [facility] [address] [place] [address] Phone Care Team Providers Name Role Phone Wilber Lowe Unavailable Unavailable Allergies No information. Encounters No information. Functional Status No information. Immunizations No information. Medications date description facility 2022-09-29 00:00 [facility] Problems date description facility 2022-09-29 00:00 Strain of lumbar [facility] Procedures No information. Results/Labs test date author facility value unit interpret ation Result panel 1 (unknown) (no (unknown) (unknown) (no value) (units (unk nown) date) unknown) (unknown) (no (unknown) (unknown) <Electronically (units (unknown) date) signed by Wilber unknown) MD Mynor> (unknown) (no (unknown) (unknown) [id number] (units (unkno wn) date) unknown) (unknown) (no (unknown) (unknown) 09/29/22 1443 (units ( unknown) date) unknown) (unknown) (no (unknown) (unknown) 09/29/22 (units (unkno wn) date) unknown) (unknown) (no (unknown) (unknown) 13:19 09/29/22 (units (unknown) date) unknown) (unknown) (no (unknown) (unknown) 14:05 (units (unkno wn) date) unknown) (unknown) (no (unknown) (unknown) 20 mg PO DAILY (units (unknown) date) Qty: 4 0RF unknown) (unknown) (no (unknown) (unknown) Activity (units (unkno wn) date) Restrictions/Add unknown) itional Instructions: (unknown) (no (unknown) (unknown) Age/Sex: 32 / F (units (unknown) date) unknown) (unknown) (no (unknown) (unknown) BACK: Normal (units (u nknown) date) inspection, no unknown) CVA tenderness. (unknown) (no (unknown) (unknown) Bedside Urine (units ( unknown) date) Bilirubin - unknown) Negative (unknown) (no (unknown) (unknown) Bedside Urine (units ( unknown) date) Glucose Negative unknown) (unknown) (no (unknown) (unknown) Bedside Urine (units ( unknown) date) Ketone - unknown) Negative (unknown) (no (unknown) (unknown) Bedside Urine (units ( unknown) date) Leukocytes - unknown) Negative (unknown) (no (unknown) (unknown) Bedside Urine (units ( unknown) date) Nitrite - unknown) Negative (unknown) (no (unknown) (unknown) Bedside Urine (units ( unknown) date) Occult Blood - unknown) Negative (unknown) (no (unknown) (unknown) Bedside Urine (units ( unknown) date) Protein - unknown) Negative (unknown) (no (unknown) (unknown) Bedside Urine (units ( unknown) date) Urobilinogen - unknown) Negative (unknown) (no (unknown) (unknown) Bedside Urine (units ( unknown) date) pH 6.0 unknown) (unknown) (no (unknown) (unknown) Blood Pressure (units (unknown) date) 98/58 L 09/29/22 unknown) 13:19 (unknown) (no (unknown) (unknown) Blood Pressure (units (unknown) date) 98/58 L unknown) (unknown) (no (unknown) (unknown) CARDIOVASCULAR: (units (unknown) date) Normal rate and unknown) rhythm without murmur gallop or rub. (unknown) (no (unknown) (unknown) CBD to no (units (unkn own) date) effect. She is unknown) also used Tylenol with no effect. She can not take (unknown) (no (unknown) (unknown) Chief (units (unkno wn) date) Complaint: Back unknown) Pain/Injury (unknown) (no (unknown) (unknown) Clinical (units (unkno wn) date) Impression: unknown) (unknown) (no (unknown) (unknown) Course (units (unkno wn) date) Narrative: unknown) (unknown) (no (unknown) (unknown) Course (units (unkno wn) date) unknown) (unknown) (no (unknown) (unknown) : 1990 (units (unknown) date) Acct:[id number] unknown) (unknown) (no (unknown) (unknown) Date of (units (unkno wn) date) Service: unknown) 09/29/22 (unknown) (no (unknown) (unknown) Departure (units (unkn own) date) unknown) (unknown) (no (unknown) (unknown) Discharge Plan (units (unknown) date) unknown) (unknown) (no (unknown) (unknown) Discontinued (units (u nknown) date) Medications unknown) (unknown) (no (unknown) (unknown) ENT: No (units (unkno wn) date) rhinorrhea. unknown) Oropharynx is moist. Mouth exam is benign. (unknown) (no (unknown) (unknown) ER Physician: (units ( unknown) date) Wilber Lowe MD unknown) (unknown) (no (unknown) (unknown) EXTREMITIES: No (units (unknown) date) edema, full unknown) range of motion. No obvious trauma. (unknown) (no (unknown) (unknown) EYES: Sclera (units (u nknown) date) are clear unknown) without icterus. Extraocular movements are full. (unknown) (no (unknown) (unknown) Emergency (units (unkn own) date) Report unknown) (unknown) (no (unknown) (unknown) Esterase (units (unkno wn) date) unknown) (unknown) (no (unknown) (unknown) Exam Narrative: (units (unknown) date) unknown) (unknown) (no (unknown) (unknown) Exam (units (unkno wn) date) unknown) (unknown) (no (unknown) (unknown) GASTROINTESTINA (units (unknown) date) L: Abdomen soft, unknown) non-tender, nondistended. (unknown) (no (unknown) (unknown) GENERAL: Alert, (units (unknown) date) cooperative and unknown) in no distress. (unknown) (no (unknown) (unknown) General (units (unkno wn) date) unknown) (unknown) (no (unknown) (unknown) HEAD: (units (unkno wn) date) Atraumatic. unknown) Normocephalic. (unknown) (no (unknown) (unknown) HPI - Back (units (unk nown) date) Pain/Injury unknown) (unknown) (no (unknown) (unknown) HPI Narrative: (units (unknown) date) unknown) (unknown) (no (unknown) (unknown) History of (units (unk nown) date) Present Illness unknown) (unknown) (no (unknown) (unknown) Initial Vital (units ( unknown) date) Signs unknown) (unknown) (no (unknown) (unknown) Initial Vital (units ( unknown) date) Signs: unknown) (unknown) (no (unknown) (unknown) Instructions: (units ( unknown) date) DI for Back Pain unknown) With Sciatica (unknown) (no (unknown) (unknown) [facility] (units (unknown) date) [address] [place] [address] unknown) [place] [address] (unknown) (no (unknown) (unknown) Lab Data (units (unkno wn) date) unknown) (unknown) (no (unknown) (unknown) Labs: (units (unkno wn) date) unknown) (unknown) (no (unknown) (unknown) MDM - Back (units (unk nown) date) Pain/Injury unknown) (unknown) (no (unknown) (unknown) Medication (units (unk nown) date) Instructions unknown) Recorded (unknown) (no (unknown) (unknown) NECK: Supple. (units ( unknown) date) Full range of unknown) motion. (unknown) (no (unknown) (unknown) NEURO: Nonfocal (units (unknown) date) examination, unknown) normal speech, normal gait. Normal dorsiflexion (unknown) (no (unknown) (unknown) Narrative (units (unkn own) date) unknown) (unknown) (no (unknown) (unknown) New (units (unkno wn) date) unknown) (unknown) (no (unknown) (unknown) No dangerous (units (u nknown) date) cause for your unknown) back pain is identified. Specifically, no infection (unknown) (no (unknown) (unknown) No imaging or (units ( unknown) date) laboratory data unknown) is ordered. Oral controlled substances are (unknown) (no (unknown) (unknown) Ordered: (units (unkno wn) date) unknown) (unknown) (no (unknown) (unknown) Orders (units (unkno wn) date) unknown) (unknown) (no (unknown) (unknown) Oxycodone HCl (units ( unknown) date) (Oxycodone 5 unknown) Mg/5 Ml Oral Solution) 5 mg PO NOW ONE (unknown) (no (unknown) (unknown) Oxygen Delivery (units (unknown) date) Method Room Air unknown) 09/29/22 13:19 (unknown) (no (unknown) (unknown) Oxygen Delivery (units (unknown) date) Method Room Air unknown) Room Air (unknown) (no (unknown) (unknown) PSYCH: Normally (units (unknown) date) oriented. Normal unknown) range of affect. Appropriate behavior (unknown) (no (unknown) (unknown) Patient (units (unkno wn) date) Disposition: unknown) Home (unknown) (no (unknown) (unknown) Patient History (units (unknown) date) unknown) (unknown) (no (unknown) (unknown) Patient comes (units ( unknown) date) to the ER today unknown) because of back pain. She has an insidious onset (unknown) (no (unknown) (unknown) Patient: (units (unkno wn) date) Jenna Quevedo unknown) MR#: [id number] (unknown) (no (unknown) (unknown) Point of Care (units ( unknown) date) Testing unknown) (unknown) (no (unknown) (unknown) Prednisone (units (unk nown) date) (Prednisone 20 unknown) Mg Tablet) 20 mg PO NOW ONE (unknown) (no (unknown) (unknown) Test (units (unknown) date) Results Negative unknown) (unknown) (no (unknown) (unknown) Prescriptions: (units (unknown) date) unknown) (unknown) (no (unknown) (unknown) Previous Rx's (units ( unknown) date) unknown) (unknown) (no (unknown) (unknown) Pulse Oximetry (units (unknown) date) 97 09/29/22 unknown) 13:19 (unknown) (no (unknown) (unknown) Pulse Oximetry (units (unknown) date) 97 98 unknown) (unknown) (no (unknown) (unknown) Pulse Rate 58 L (units (unknown) date) 09/29/22 13:19 unknown) (unknown) (no (unknown) (unknown) Pulse Rate 58 L (units (unknown) date) 49 L unknown) (unknown) (no (unknown) (unknown) RESPIRATORY: (units (un known) date) Clear to unknown) auscultation. Breath sounds equal bilaterally. No wheezes, (unknown) (no (unknown) (unknown) Related Data (units (u nknown) date) unknown) (unknown) (no (unknown) (unknown) Respiratory (units (un known) date) Rate 16 09/29/22 unknown) 13:19 (unknown) (no (unknown) (unknown) Respiratory (units (un known) date) Rate 16 19 unknown) (unknown) (no (unknown) (unknown) SKIN: No rash (units ( unknown) date) or erythema of unknown) visible areas (unknown) (no (unknown) (unknown) Signed By: (units (unk nown) date) unknown) (unknown) (no (unknown) (unknown) Smoking Status: (units (unknown) date) Never smoker unknown) (unknown) (no (unknown) (unknown) Social History (units (unknown) date) unknown) (unknown) (no (unknown) (unknown) Source: patient (units (unknown) date) unknown) (unknown) (no (unknown) (unknown) Stand Alone (units (un known) date) Forms: Patient unknown) Portal/API (unknown) (no (unknown) (unknown) Stated (units (unkno wn) date) Complaint: back unknown) pain since Thurs, kid stone heal hist, pcos (unknown) (no (unknown) (unknown) Stop: 09/29/22 (units (unknown) date) 14:38 unknown) (unknown) (no (unknown) (unknown) Stop: 09/29/22 (units (unknown) date) 14:39 unknown) (unknown) (no (unknown) (unknown) Strain of (units (unkn own) date) lumbar region unknown) (unknown) (no (unknown) (unknown) Substance Use (units ( unknown) date) Type: marijuana unknown) (unknown) (no (unknown) (unknown) Temperature (units (un known) date) 97.4 F L unknown) 09/29/22 13:19 (unknown) (no (unknown) (unknown) Temperature (units (un known) date) 97.4 F L unknown) (unknown) (no (unknown) (unknown) Time Seen by (units (u nknown) date) Provider: unknown) 09/29/22 13:30 (unknown) (no (unknown) (unknown) Urine Dip (units (unkn own) date) unknown) (unknown) (no (unknown) (unknown) Urine Specific (units (unknown) date) [place] 1.030 unknown) (unknown) (no (unknown) (unknown) Vital Signs - 8 (units (unknown) date) hr unknown) (unknown) (no (unknown) (unknown) Vital Signs (units (un known) date) unknown) (unknown) (no (unknown) (unknown) Vital signs: (units (u nknown) date) unknown) (unknown) (no (unknown) (unknown) administered (units (u nknown) date) and prescription unknown) treatment as prescribed (unknown) (no (unknown) (unknown) and plantar (units (un known) date) flexion strength unknown) (unknown) (no (unknown) (unknown) conservative (units (u nknown) date) measures are unknown) appropriate. Normally I would recommend strong NSAID (unknown) (no (unknown) (unknown) days. Use the (units ( unknown) date) other measures unknown) you have been using. Stay active. Follow-up (unknown) (no (unknown) (unknown) extremity (units (unkn own) date) weakness and unknown) fever. No discrete injury. (unknown) (no (unknown) (unknown) in the spine or (units (unknown) date) tumor or spinal unknown) cord impingement is suspected. I think (unknown) (no (unknown) (unknown) including (units (unkn own) date) topical NSAIDs unknown) on her low back and multiple formulations of THC and (unknown) (no (unknown) (unknown) of the pain (units (un known) date) over the past 4 unknown) or 5 days. She is used multiple home remedies (unknown) (no (unknown) (unknown) option of using (units (unknown) date) prednisone which unknown) is a steroid instead. Take 20 mg daily for 5 (unknown) (no (unknown) (unknown) oral NSAIDs (units (un known) date) because of a unknown) stomach ulcer. She denies incontinence and lower (unknown) (no (unknown) (unknown) prednisone 20 (units ( unknown) date) mg tablet 20 mg unknown) PO DAILY #4 tabs 09/29/22 (unknown) (no (unknown) (unknown) prednisone 20 (units ( unknown) date) mg tablet unknown) (unknown) (no (unknown) (unknown) rales, or (units (unkn own) date) rhonchi. unknown) (unknown) (no (unknown) (unknown) right away for (units (unknown) date) weakness or unknown) incontinence or lower extremity dysfunction. Follow (unknown) (no (unknown) (unknown) up with your (units (u nknown) date) doctor next week unknown) if symptoms are not improving. Sooner if worse. (unknown) (no (unknown) (unknown) use but you can (units (unknown) date) not take this unknown) because of your stomach ulcer so we will take the Social History date description facility 2022-09-29 00:00 Never smoked tobacco ([facility] Vital Signs date measurement value units 2022-09-29 00:00 BMI 42.5 kg/m2 2022-09-29 00:00 BP_diastolic 59 mmHg 2022-09-29 00:00 BP_systolic 119 mmHg 2022-09-29 00:00 heart_rate 58 /min 2022-09-29 00:00 height_metric 175.26 cm 2022-09-29 00:00 height_standard 69 in 2022-09-29 00:00 o2_saturation 96 % 2022-09-29 00:00 respiration_rate 18 /min 2022-09-29 00:00 temperature_metric 36.33 C 2022-09-29 00:00 temperature_standard 97.4 F 2022-09-29 00:00 weight_metric 130.63 kg 2022-09-29 00:00 weight_standard 287.99 lb
[2022-10-02] MEDS ORDERED: LORazepam 1 MG TABLET PO STA (00:02)
[2022-10-02] MEDS ORDERED: CYCLOBENZAPRINE 10 MG TABLET PO STA (00:02)
--- NOTE | 2022-10-02 00:05 | ED Physician Documentation ---
History of Present Illness - Stated complaint Stated Complaint: NECK PX - Chief complaint Chief Complaint: Back Pain - History obtained from History obtained from: Patient - Additonal information Additional information: 32-year-old woman with history of chronic pain presents with left neck pain and radiculopathy from [facility].Patient is requesting pain medication. 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 and currettage HEENT: Tonsil/Adenoidectomy - Present Medications Home Medications: Ambulatory Orders Medication Instructions Recorded Confirmed predniSONE [Deltasone] 20 mg PO DAILY 10/01/22 10/01/22 Cyclobenzaprine [Flexeril] 10 mg PO TID PRN 6 Days #20 tablet 10/02/22 - Allergies Allergies/Adverse Reactions: Allergies Allergy/AdvReac Type Severity Reaction Status Date / Time No Known Drug Allergies Allergy Verified 10/01/22 21:02 - Social History Does the pt smoke?: Yes Smoking Status: Current every day smoker Does the pt drink ETOH?: Yes Does the pt have substance abuse?: Yes Substance Use and Type: Marijuana - Immunizations Immunizations are current?: Yes - POLST Patient has POLST: Yes PD ED PE NORMAL - Vitals Vital signs reviewed: Yes - General General: Alert and oriented X 3, No acute distress, Well developed/nourished - HEENT HEENT: Atraumatic, PERRL, EOMI - Neck Neck: No bony TTP, Other (Left neck discomfort in a muscular distribution) Results - Vitals Vitals: Vital Signs - 24 hr 10/01/22 10/01/22 10/01/22 20:54 21:00 23:00 Temperature 36.2 C L Heart Rate 60 65 58 L Respiratory 16 19 17 Rate Blood Pressure 122/68 125/86 H 125/86 H O2 Saturation 96 96 95 10/02/22 10/02/22 01:00 01:22 Temperature 36.8 C Heart Rate 50 L Respiratory Rate Blood Pressure 149/109 H O2 Saturation 93 Oxygen O2 Source Room air PD Medical Decision Making - ED course ED course: 32-year-old woman presenting with radicular neck pain after breast-feeding her child this morning. also has ongoing chronic back pain. Patient had persistent pain s/p flexeril and ativan and requested something stronger through the IV. 2mg IV morphine provided with relief. Patient discharged home to f/u with pcp for pain management referral. return precautions given. Departure - Departure Disposition: Home, Self Care Clinical Impression: Chronic back pain, Radiculopathy Condition: Stable Instructions: Radiculopathy Cervical Prescriptions: Cyclobenzaprine [Flexeril] 10 mg PO TID PRN 6 Days #20 tablet PRN Reason: Spasms Comments: You were seen in the emergency department for cervical radiculopathy. A script was sent for flexeril electronically to [facility] [place]. Please follow-up with your primary care provider for referral to pain management and/or neurosurgery and return to the emergency department if you have any new or worsening symptoms or other concerns. Discharge Date/Time: 10/02/22 01:27
[2022-10-02] MEDS ORDERED: MORPHINE 2 MG/ML CARPUJECT IVP STA (00:40)
[2022-10-02 01:13] VITALS: BP 149/109
== END 2022-10-02 01:27 | disposition home or self-care (01) ==
LOC: ED 20:45
DX: M54.12 Radiculopathy, cervical region (principal); M54.9 Dorsalgia, unspecified; G89.29 Other chronic pain; F17.200 Nicotine dependence, unspecified, uncomplicated
CPT/HCPCS: 36415; 96374; 99282; 99283; A9270; J8499

== ENCOUNTER 2023-02-22 09:07 | Emergency (ER) | payer MEDICAID ==
[2023-02-22 09:23] VITALS: BP 132/72; O2SAT 95
[2023-02-22] MEDS ORDERED: CYCLOBENZAPRINE 10 MG TABLET PO STA (09:44)
[2023-02-22] MEDS ORDERED: oxyCODONE 5 MG TABLET PO STA (09:45)
[2023-02-22] MEDS ORDERED: LIDOCAINE PATCH 5% TOP STA (09:46)
[2023-02-22] MEDS ORDERED: KETOROLAC 60 MG/2 ML VIAL IM STA (09:46)
--- NOTE | 2023-02-22 10:12 | XRAY Report ---
PROCEDURE: Shoulder 3 View LT INDICATIONS: pain TECHNIQUE: 3 views of the shoulder were acquired. COMPARISON: None. FINDINGS: Bones: No fractures or dislocations. No suspicious bony lesions. Visualized ribs appear intact. Soft tissues: No suspicious soft tissue calcifications. IMPRESSION: No acute bony abnormality. Reviewed by: Leonardo Greenfield MD on 02/22/2023 9:11 AM TONIA Approved by: Leonardo Greenfield MD on 02/22/2023 9:11 AM TONIA Station ID: [id number]
--- NOTE | 2023-02-22 10:36 | ED Physician Documentation ---
PD HPI NECK PAIN - Stated complaint Stated Complaint: NECK PX - Chief complaint Chief Complaint: General - History obtained from History obtained from: Patient - Additional information Additional information: Patient is a 32-year-old female presenting for evaluation of left-sided neck pain that has been present for the past 4 days. Patient has chronic neck and back issues and she woke up on reporting feeling a stiff neck. Today she was in the bathtub with one of her younger children when he moved suddenly forward and she lunged for him to prevent him from going under the water and felt a pop on the left side of her neck and reports increased pain. Patient does have a prescription for Flexeril which she has been using with some improvement but has since run out. She is awaiting a referral to pain management as well as to a chiropractor. Patient denies headache. Does not take a blood thinner. No IV drug use. No arm weakness or numbness. Patient does report pain into the left shoulder and feeling like she is having trouble moving her left shoulder due to the pain. No chest pain or feeling short of air. No bowel or bladder incontinence. Denies saddle anesthesia. Review of Systems Constitutional: denies: Fever Cardiac: denies: Chest pain / pressure Respiratory: denies: Dyspnea GI: denies: Abdominal Pain Musculoskeletal: reports: Neck pain PD PAST MEDICAL HISTORY - Past Medical History Cardiovascular: None Respiratory: None Neuro: Headaches, Migraines Endocrine/Autoimmune: None GI: None CODING CLERK: Ectopic , Ovarian cysts : Kidney stones HEENT: None Psych: Anxiety, Post traumatic stress disorder Musculoskeletal: Chronic back pain Derm: None - Past Surgical History Past Surgical History: Yes /CODING CLERK: section, Dilation and currettage HEENT: Tonsil/Adenoidectomy - Present Medications Home Medications: Ambulatory Orders Medication Instructions Recorded Confirmed predniSONE [Deltasone] 20 mg PO DAILY 10/01/22 10/01/22 Cyclobenzaprine [Flexeril] 10 mg PO TID PRN 6 Days #20 tablet 10/02/22 Cyclobenzaprine [Flexeril] 10 mg PO TID PRN #20 tablet 02/22/23 Lidocaine Patch 5% [Lidoderm Patch] 1 patch TOP DAILY PRN #10 patch 02/22/23 Oxycodone HCl/Acetaminophen 1 each PO Q6H PRN #10 tablet 02/22/23 [Percocet 5-325 mg Tablet] - Allergies Allergies/Adverse Reactions: Allergies Allergy/AdvReac Type Severity Reaction Status Date / Time No Known Drug Allergies Allergy Verified 02/22/23 09:19 - Social History Does the pt smoke?: Yes Smoking Status: Current every day smoker Does the pt drink ETOH?: Yes Does the pt have substance abuse?: Yes - Immunizations Immunizations are current?: Yes - POLST Patient has POLST: Yes PD ED PE NORMAL - General General: Alert and oriented X 3, No acute distress, Well developed/nourished - HEENT HEENT: Atraumatic - Neck Neck: Supple, no meningeal sign, No bony TTP - Cardiac Cardiac: RRR, No murmur, Strong equal pulses - Respiratory Respiratory: No respiratory distress, Clear bilaterally - Abdomen Abdomen: Soft, Non tender - Back Back: No spinal TTP - Derm Derm: Warm and dry - Extremities Extremities: Other (Pain on palpation of musculature over left shoulder and pain with range of motion but able to touch left hand to right shoulder.) - Neuro Neuro: Alert and oriented X 3, No motor deficit, No sensory deficit, Normal speech PD ED PE EXPANDED - Back Back visual: 1 - tenderness (Muscle spasm) Results - Vitals Vitals: Vital Signs - 24 hr 02/22/23 09:16 Temperature 36.4 C L Heart Rate 70 Respiratory 20 Rate Blood Pressure 132/72 H O2 Saturation 95 Oxygen O2 Source Room air PD Medical Decision Making - ED course Complexity details: reviewed results, re-evaluated patient, d/w patient ED course: Patient is a 32-year-old female presenting for evaluation of left-sided neck pain that is been present for the past several days. No fall or other known injury. Patient also reports pain to the left shoulder After sudden movement to catch her son in the bathtub. An x-ray was obtained which I reviewed I see no fracture or dislocation. Neurovascularly intact. No midline tenderness. No red flag signs or symptoms in regards to her neck pain. No risk factors for epidural abscess or hematoma. Patient appears to have a visible muscle spasm and discussed treatment options for this which she is agreeable. Patient has a follow-up appointment on Friday with her PCP. She is counseled on treatment plan as well as concerning symptoms to return for. Departure - Departure Disposition: 01 Home, Self Care Clinical Impression: Neck muscle spasm Condition: Stable Instructions: ED Spasm Neck No Injury Prescriptions: Cyclobenzaprine [Flexeril] 10 mg PO TID PRN #20 tablet PRN Reason: Spasms Lidocaine Patch 5% [Lidoderm Patch] 1 patch TOP DAILY PRN #10 patch PRN Reason: pain Oxycodone HCl/Acetaminophen [Percocet 5-325 mg Tablet] 1 each PO Q6H PRN #10 tablet PRN Reason: pain Comments: You appear to have a muscle spasm in your neck causing your pain and discomfort. We did obtain a shoulder x-ray just to make sure there is no issue there and there is no dislocation. I sent prescriptions to help you with your pain and to [facility] in [place]. At your request we have also given you a sling for your arm as this helps with your pain. Please do not keep the sling on all the time as this will cause your shoulder to get frozen. I would recommend taking it off several times a day to range of motion your shoulder and to do gentle stretching exercises of your neck muscles. I have sent a prescription for a muscle relaxer as well as a narcotic pain medication. Both of these can be sedating and they are excreted in breast milk. As long as you are not drowsy you are safe to feed your baby but if you are feeling drowsy then please do not feed or nurse your baby.I would recommend not taking both of these medications at the same time regularly. Please follow-up with your primary care doctor on Friday as scheduled. I am prescribing a short course of narcotic pain medication for you. These are potentially dangerous and addictive medications that should be used carefully. These medications may constipate you. Take an ntil-mup-zcdhlsk stool softener (docusate) twice daily with plenty of water while taking these medications. If you go 24 hours without a bowel movement, take [id number] miralax, per package instructions. Do not drink or drive while taking these medications. If you received narcotic or sedating medications while in the emergency department, do not drive for 24 hours. Store this medication in a safe, secure place and out of reach of children. It is a violation of federal law to give or sell this medication to another person or to use in a manner other than prescribed. The ED will not refill narcotic prescriptions, including prescriptions lost or stolen. To dispose of unwanted medications: 1. [facility] at [address] in [place] has a medication drop box. They accept prescription medications (in pill form) Friday through Friday 9:00 a.m. to 5:00 p.m. 2. The [facility] accepts prescription medications (in pill form only) for disposal year round. Call for more information. 3. Contact the [facility] for the next [facility] sponsored prescription drug collection event. , [phone], or [phone]; Note that many narcotic pain relievers also contain Tylenol/acetaminophen. Please ensure that your total dose of acetaminophen from all sources does not exceed 3 g (3000 mg) per day. Forms: PCP List Discharge Date/Time: 02/22/23 10:58
== END 2023-02-22 10:58 | disposition home or self-care (01) ==
LOC: ED 09:07
DX: M62.838 Other muscle spasm (principal); F17.200 Nicotine dependence, unspecified, uncomplicated
CPT/HCPCS: 73030; 96372; 99283; A9270

== ENCOUNTER 2023-03-07 10:50 | Emergency (ER) | payer MEDICAID ==
[2023-03-07 11:18] LABS: BASOPHILS # (AUTO) 0.1 10^3/uL (0.0-0.1); BASOPHILS % (AUTO) 0.6 %; EOSINOPHILS # (AUTO) 0.2 10^3/uL (0.0-0.7); EOSINOPHILS % (AUTO) 2.4 %; HCT - HEMATOCRIT 41.7 % (37.0-47.0); HGB - HEMOGLOBIN 13.7 g/dL (12.0-16.0); LYMPHOCYTES # (AUTO) 2.6 10^3/uL (1.5-3.5); MEAN CORPUSCULAR HGB CONC 32.9 g/dL (32.0-36.0); MEAN CORPUSCULAR VOLUME 88.3 fL (81.0-99.0); MONOCYTES # (AUTO) 0.5 10^3/uL (0.0-1.0); MONOCYTES % (AUTO) 5.4 %; NEUTROPHILS # (AUTO) 5.3 10^3/uL (1.5-6.6); NEUTROPHILS % (AUTO) 61.1 %; PLT - PLATELET COUNT 270 10^3/uL (130-450); RED BLOOD COUNT 4.72 10^6/uL (4.20-5.40); WHITE BLOOD COUNT 8.6 x10^3/uL (4.8-10.8)
[2023-03-07 11:32] LABS: ALBUMIN 4.3 g/dL (3.2-5.5); ALBUMIN/GLOBULIN RATIO 1.3 (1.0-2.2); BILIRUBIN,TOTAL 0.3 mg/dL (0.2-1.0); CALCIUM 10.1 mg/dL (8.5-10.3); CREATININE 0.7 mg/dL (0.6-1.3); POTASSIUM 4.1 mmol/L (3.5-4.5); TOTAL PROTEIN 7.7 g/dL (6.4-8.9)
[2023-03-07] MEDS ORDERED: DROPERIDOL 5 MG/2 ML VIAL IVP STA (12:02)
[2023-03-07] MEDS ORDERED: KETOROLAC 30 MG/ML VIAL IVP STA ×2 (12:02→17:23)
[2023-03-07] MEDS ORDERED: HYDROmorphone 1 MG/ML CARPUJECT IVP STA (12:02)
[2023-03-07] MEDS ORDERED: SODIUM CHLORIDE 0.9% 1,000 ML IV STA (12:02)
--- NOTE | 2023-03-07 13:03 | ED Physician Documentation ---
PD HPI ABD PAIN - Stated complaint Stated Complaint: BACK PX,SOA,ABD PX - Chief complaint Chief Complaint: Abd Pain - History obtained from History obtained from: Patient - Additional information Additional information: The patient comes to the emergency department chief complaint of feeling as though she has had menstrual cramps for the last week to week and a half and then experiencing a sudden onset of right flank and lower abdominal pain in the middle of the night. Patient states that she woke up to the sound herself screaming and had severe pain. She states it comes in waves. She has a history of kidney stones and this feels somewhat similar. She denies any fevers or chills. She has been nauseated and has done some vomiting. No urinary symptoms. No change in her bowel movements. The patient notes she has a history of a left-sided ectopic but that the tube is still patent. She also has a history of polycystic ovarian syndrome. Her last menstrual period was last month and she is states she is 3 days late for her period. No other complaints at this time. PD PAST MEDICAL HISTORY - Past Medical History Cardiovascular: None Respiratory: None Neuro: Headaches, Migraines Endocrine/Autoimmune: None GI: None TABULAR TYPIST: Ectopic , Ovarian cysts : Kidney stones HEENT: None Psych: Anxiety, Post traumatic stress disorder Musculoskeletal: Chronic back pain Derm: None - Past Surgical History Past Surgical History: Yes /TABULAR TYPIST: section, Dilation and currettage HEENT: Tonsil/Adenoidectomy - Present Medications Home Medications: Ambulatory Orders Medication Instructions Recorded Confirmed predniSONE [Deltasone] 20 mg PO DAILY 10/01/22 10/01/22 Cyclobenzaprine [Flexeril] 10 mg PO TID PRN 6 Days #20 tablet 10/02/22 Cyclobenzaprine [Flexeril] 10 mg PO TID PRN #20 tablet 02/22/23 Lidocaine Patch 5% [Lidoderm Patch] 1 patch TOP DAILY PRN #10 patch 02/22/23 Oxycodone HCl/Acetaminophen 1 each PO Q6H PRN #10 tablet 02/22/23 [Percocet 5-325 mg Tablet] HYDROcod/ACETAM 5/325 [[place] 5/325] 1 - 2 tablet PO Q6H PRN #14 tablet 03/07/23 Ondansetron Odt [Zofran] 4 mg TL Q6H PRN #10 tablet 03/07/23 - Allergies Allergies/Adverse Reactions: Allergies Allergy/AdvReac Type Severity Reaction Status Date / Time No Known Drug Allergies Allergy Verified 02/22/23 09:19 - Social History Does the pt smoke?: Yes Smoking Status: Current every day smoker Does the pt drink ETOH?: Yes Does the pt have substance abuse?: Yes - Immunizations Immunizations are current?: Yes - POLST Patient has POLST: Yes PD ED PE NORMAL - Vitals Vital signs reviewed: Yes - General General: Alert and oriented X 3, Well developed/nourished, Other (The patient appears significantly uncomfortable but is otherwise in no apparent distress.) - HEENT HEENT: Atraumatic, PERRL, EOMI, Moist mucous membranes - Neck Neck: Supple, no meningeal sign - Cardiac Cardiac: RRR, No murmur - Respiratory Respiratory: No respiratory distress, Clear bilaterally - Abdomen Abdomen: Soft, Other (Morbidly obese abdomen, diffuse moderate tenderness without rebound or guarding.) - Derm Derm: Normal color, Warm and dry, No rash - Extremities Extremities: No deformity - Neuro Neuro: Alert and oriented X 3 - Psych Psych: Normal mood, Normal affect Results - Vitals Vitals: Vital Signs - 24 hr 03/07/23 03/07/23 03/07/23 10:59 13:35 15:02 Temperature 36.7 C Heart Rate 61 64 69 Respiratory 22 14 20 Rate Blood Pressure 121/69 138/83 H 113/71 O2 Saturation 97 97 100 03/07/23 17:40 Temperature Heart Rate 77 Respiratory 15 Rate Blood Pressure 134/74 H O2 Saturation 99 Oxygen O2 Source Room air - Labs Labs: Laboratory Tests 03/07/23 03/07/23 03/07/23 11:13 11:13 11:13 WBC 8.6 RBC 4.72 Hgb 13.7 Hct 41.7 MCV 88.3 MCH 29.0 MCHC 32.9 RDW 13.0 Plt Count 270 MPV 9.0 Neut # (Auto) 5.3 Lymph # (Auto) 2.6 [place] # (Auto) 0.5 Eos # (Auto) 0.2 Baso # (Auto) 0.1 Absolute Nucleated RBC 0.00 Nucleated RBC % 0.0 Sodium 137 Potassium 4.1 Chloride 106 Carbon Dioxide 24 Anion Gap 7.0 BUN 11 Creatinine 0.7 Estimated GFR (MDRD) 96 Glucose 107 H Calcium 10.1 Total Bilirubin 0.3 AST 13 ALT 23 Alkaline Phosphatase 96 Total Protein 7.7 Albumin 4.3 Globulin 3.4 Albumin/Globulin Ratio 1.3 Lipase 32 Beta HCG, Quant < 0.6 Urine Color Urine Clarity Urine pH Ur Specific [place] Urine Protein Urine Glucose (UA) Urine Ketones Urine Occult Blood Urine Nitrite Urine Bilirubin Urine Urobilinogen Ur Leukocyte Esterase Ur Microscopic Review Urine Culture Comments 03/07/23 13:30 WBC RBC Hgb Hct MCV MCH MCHC RDW Plt Count MPV Neut # (Auto) Lymph # (Auto) [place] # (Auto) Eos # (Auto) Baso # (Auto) Absolute Nucleated RBC Nucleated RBC % Sodium Potassium Chloride Carbon Dioxide Anion Gap BUN Creatinine Estimated GFR (MDRD) Glucose Calcium Total Bilirubin AST ALT Alkaline Phosphatase Total Protein Albumin Globulin Albumin/Globulin Ratio Lipase Beta HCG, Quant Urine Color YELLOW Urine Clarity CLEAR Urine pH 6.0 Ur Specific [place] 1.020 Urine Protein NEGATIVE Urine Glucose (UA) NEGATIVE Urine Ketones NEGATIVE Urine Occult Blood NEGATIVE Urine Nitrite NEGATIVE Urine Bilirubin NEGATIVE Urine Urobilinogen 0.2 (NORMAL) Ur Leukocyte Esterase NEGATIVE Ur Microscopic Review NOT INDICATED Urine Culture Comments NOT INDICATED - Rads (name of study) CT abdomen and pelvis Relevant Findings:: Final report received, See rad report (Negative for acute findings) PD Medical Decision Making - ED course Complexity details: reviewed results, re-evaluated patient, considered differential, d/w patient ED course: Patient was evaluated in the emergency department with laboratory studies including ER abdominal panel, urinalysis, and CBC. Ultimately CT scan of the abdomen pelvis was also ordered. Patient was treated symptomatically with IV fluids, Dilaudid, Toradol, and droperidol. She was feeling much better on reevaluation. Her labs were unremarkable as was urinalysis and CT scan of the abdomen and pelvis was also unremarkable. The patient most likely has a viral gastroenteritis, as I discussed with her. We have discussed symptomatic management at home as well as the usual indications for return. Departure - Departure Disposition: 01 Home, Self Care Clinical Impression: Abdominal pain Qualifiers: Abdominal location: generalized Qualified Code(s): R10.84 - Generalized abd ominal pain Vomiting Qualifiers: Vomiting type: bilious vomiting Nausea presence: with nausea Qualified Code(s): R11.14 - Bilious vomiting Condition: Stable Instructions: ED Abdominal Pain Female Non-Specific Abdominal Pain, ED Gastroenteritis Viral Prescriptions: HYDROcod/ACETAM 5/325 [[place] 5/325] 1 - 2 tablet PO Q6H PRN #14 tablet PRN Reason: Pain Ondansetron Odt [Zofran] 4 mg TL Q6H PRN #10 tablet PRN Reason: Nausea / Vomiting Comments: Your labs and CT scan look good. There is no evidence of an emergent issue and most likely, you are having some intestinal spasm from A viral illness. Prescriptions for nausea and pain medication been electronically transmitted to the [facility] in [place]. Please be sure you get plenty of clear liquids to drink. Avoid solid foods until you are no longer vomiting and after that, work back to a normal diet gradually, starting with simple starches like Saltine crackers and Ramen noodles. Please follow-up with your primary care nahomi conteh as needed. Forms: PCP List Discharge Date/Time: 03/07/23 17:56
[2023-03-07 13:37] LABS: BILIRUBIN,URINE NEGATIVE (NEGATIVE); GLUCOSE, URINE (UA) NEGATIVE (NEGATIVE); KETONES,URINE (UA) NEGATIVE (NEGATIVE); LEUKOCYTE ESTERASE, URINE NEGATIVE (NEGATIVE); NITRITE,URINE NEGATIVE (NEGATIVE); OCCULT BLOOD,URINE NEGATIVE (NEGATIVE); PROTEIN,URINE NEGATIVE (NEGATIVE); UROBILINOGEN,URINE 0.2 (NORMAL) E.U./dL (NORMAL)
[2023-03-07 13:38] LABS: CLARITY,URINE CLEAR (CLEAR)
--- NOTE | 2023-03-07 16:42 | CT Report ---
PROCEDURE: CT abdomen and pelvis without contrast INDICATIONS: R flank pain, NV TECHNIQUE: Helical axial CT of the abdomen and pelvis was obtained without intravenous contrast and reformatted in multiple planes. For radiation dose reduction, the following was used: automated exposure control, adjustment of mA and/or kV according to patient size. COMPARISON: 02/25/2021 FINDINGS: Lower thorax: The lung bases are clear. Heart size normal. No hiatal hernia. Liver: Hepatic parenchyma is diffusely decreased in attenuation without focal mass lesion. Biliary system: No calcified cholelithiasis or pericholecystic inflammation. No evidence of bile du ct dilatation. Pancreas: Unremarkable without mass or inflammation evident. Spleen: Normal in size and density. Adrenals: Normal morphology and density. Reproductive system: Unremarkable as visualized. Urinary system: Normal renal size and attenuation. No renal calculi, hydronephrosis, or solid mass p resent. Urinary bladder unremarkable. Gastrointestinal system: The bowel appears unremarkable with no evidence of bowel obstruction or inf lammation. The stomach appears unremarkable. Appendix: Normal appendix identified Peritoneal spaces: No mesenteric or retroperitoneal adenopathy. No free air. No free fluid. Vasculature: The IVC, aorta and iliac vasculature are unremarkable. Abdominal Wall: Abdominal wall is intact without evidence of ventral or inguinal hernias. Musculoskeletal: Normal bone mineralization. No acute fractures. IMPRESSION: Mild hepatic fatty infiltration. Otherwise unremarkable noncontrast CT abdomen and pelvis. Normal kishor endix and right kidney without obstructive uropathy Reviewed by: Thirery Doshi MD on 03/07/2023 3:40 PM AKDT Approved by: Thierry Doshi MD on 03/07/2023 3:40 PM AKDT Station ID: [id number]
[2023-03-07 17:48] VITALS: BP 134/74; O2SAT 99
== END 2023-03-07 17:56 | disposition home or self-care (01) ==
LOC: ED 10:50
DX: R10.84 Generalized abdominal pain (principal); R11.14 Bilious vomiting; F17.200 Nicotine dependence, unspecified, uncomplicated
CPT/HCPCS: 36415; 74176; 80053; 81003; 83690; 84702; 85025; 96374; 96375; 96376; 99284; J1170; 81001; 87086

== ENCOUNTER 2023-03-19 17:22 | Outpatient (CLI) | payer MEDICAID ==
--- NOTE | 2023-03-20 20:01 | Ultrasound Report ---
PROCEDURE: Head or Neck Soft Tissue INDICATIONS: HISTORY OF THYROID NODULE TECHNIQUE: Real-time scanning was performed of the thyroid gland, with image documentation. COMPARISON: None FINDINGS: Right: Thyroid lobe measures 3.6 x 1.7 x 1.5 cm, and is homogeneous in echotexture. Left: Thyroid lobe measures 4.2 x 1.3 x 1.4 cm, and is homogenous in echotexture. Isthmus: 5 mm thick. IMPRESSION: Normal thyroid ultrasound ACR TI-RADS definitions and recommendations: TI-RADS 1 (benign): 0 points. FNA not needed. TI-RADS 2 (not suspicious): 2 points. FNA not needed. TI-RADS 3 (mildly suspicious): 3 points. "FNA if 2.5 cm or larger, follow up if 1.5 cm or larger (at 1, 3, and 5 years). TI-RADS 4 (moderately suspicious): 4-6 points. "FNA if 1.5 cm or larger, follow up if 1 cm or larger (at 1, 2, 3, and 5 years). TI-RADS 5 (highly suspicious): 7 points or more. "FNA if 1 cm or larger, follow up if 0.5 cm or larger (every year for 5 years). Reviewed by: Thierry Doshi MD on 03/20/2023 7:00 PM TONIA Approved by: Thierry Doshi MD on 03/20/2023 7:00 PM TONIA Station ID: [id number]
== END 2023-03-19 17:23 | disposition home or self-care (01) ==
LOC: DI 17:22
PROVIDERS: ATTEND Physician Assistant Medical
DX: Z86.39 Personal history of other endocrine, nutritional and metabolic disease (principal)

== ENCOUNTER 2023-09-03 18:28 | Outpatient (CLI) | payer MEDICAID ==
--- NOTE | 2023-09-04 11:13 | Ultrasound Report ---
PROCEDURE: Pelvic w/Transvaginal INDICATIONS: LL QUAD PAIN TECHNIQUE: Real-time scanning was performed of the pelvic organs, with image documentation. Additional endovagi nal scanning was necessary due to incomplete visualization of the adnexal and endometrial structures by transabdominal scanning. COMPARISON: CT abdomen/pelvis 03/07/2023, pelvic ultrasound 02/25/2021 FINDINGS: Uterus: Uterus is anteverted and normal in size at 8.2 x 3.4 x 4.3 cm. The myometrium is heterogene ous. The endometrium measures 6 mm in combined thickness. Ovaries: The right ovary measures 1.9 x 1.1 cm on transabdominal images, but is not well visualized. The left ovary measures 3.8 x 2.3 x 3.5 cm, with a calculated ovarian volume of 16.3 cc. 3 mm echog enic shadowing focus in the left ovary does not appear significantly changed. Greater than 12 follicl es can be seen in in the left ovary. No adnexal masses are seen. No cystic lesions measuring greater than 3 cm. Other: No pathologic free abdominal or pelvic fluid. IMPRESSION: 1.Stable polycystic appearance of the left ovary. No source for left lower quadrant pain identified. 2.Right ovary is poorly visualized. 3.Heterogeneous appearance of the uterus is nonspecific, but can be seen in setting of adenomyosis. Reviewed by: Dain Mai MD on 09/04/2023 11:12 AM PST Approved by: Dain Mai MD on 09/04/2023 11:12 AM PST Station ID: [id number]
== END 2023-09-03 18:29 | disposition home or self-care (01) ==
LOC: DI 18:28
PROVIDERS: ATTEND Obstetrics & Gynecology
DX: R10.32 Left lower quadrant pain (principal); E66.01 Morbid (severe) obesity due to excess calories

== ENCOUNTER 2023-11-18 09:33 | Observation (INO) | payer MEDICAID ==
[2023-11-18] MEDS: LACTATED RINGERS 1,000 ML IV ONE ×4 (09:39→15:10)
[2023-11-18] MEDS ORDERED: ceFAZolin 1 GM VIAL ONE ×2 (09:41→10:41)
[2023-11-18] MEDS ORDERED: metroNIDAZOLE 500 MG/100 ML 500 MG/100 ML BAG ONE (09:41)
[2023-11-18] MEDS ORDERED: ceFAZolin 2 GM VIAL ONE (09:41)
[2023-11-18] MEDS ORDERED: LIDOCAINE 1%-EPI 1:100000 20 ML MDV ONE (09:43)
[2023-11-18] MEDS: LIDOCAINE 1%-EPI 1:100000 20 ML MDV SUBQ ONE (09:46)
[2023-11-18] MEDS: ACETAMINOPHEN 325 MG TABLET PO ONE (09:58)
[2023-11-18 10:03] LABS: HCG UR QUAL NEGATIVE
[2023-11-18] MEDS ORDERED: MIDAZOLAM 2 MG/2 ML VIAL ONE (10:08)
[2023-11-18] MEDS ORDERED: PROPOFOL 200 MG/20 ML VIAL IVP ONE (10:08)
[2023-11-18] MEDS ORDERED: fentaNYL 100 MCG/2 ML VIAL ONE ×2 (10:08→13:29)
[2023-11-18] MEDS ORDERED: LIDOCAINE-PF 2% 10 ML AMP SUBQ ONE ×2 (10:09→12:34)
[2023-11-18] MEDS ORDERED: ROCURONIUM 50 MG/5 ML VIAL ONE ×2 (10:09→12:05)
--- NOTE | 2023-11-18 10:15 | ANESTHESIA ---
Pre-Anesthesia VS, & Labs - Diagnosis adenomyosis of uterus, L ovarian cyst - Procedure LAVH with L lap salpingectomy Vital Signs: Temp Pulse Resp BP Pulse Ox O2 Flow Rate 36.5 C 79 16 104/89 H 92 11/18/23 09:51 11/18/23 09:51 11/18/23 09:51 11/18/23 09:51 11/18/23 09:51 Height: 5 ft 9 in Weight (kg): 134.7 kg Body Mass Index: 43.8 BMI Classification: Morbidly Obese - NPO >8 hours Last Fluid Intake: sips with tylenol - Is Patient ?: No - Lab Results Lab results reviewed: Yes Home Medications and Allergies Home Medications: Ambulatory Orders Ketorolac [Toradol] 10 mg PO DAILY PRN 11/11/23 Levothyroxine Sodium 175 mcg PO DAILY 11/11/23 Methylphenidate HCl [Metadate Cd] 10 mg PO DAILY 11/11/23 hydroCHLOROthiazide [Hydrodiuril] 12.5 mg PO DAILY 11/11/23 Ketorolac [Toradol] 10 mg PO DAILY PRN 11/11/23 Levothyroxine Sodium 175 mcg PO DAILY 11/11/23 Methylphenidate HCl [Metadate Cd] 10 mg PO DAILY 11/11/23 hydroCHLOROthiazide [Hydrodiuril] 12.5 mg PO DAILY 11/11/23 Allergies/Adverse Reactions: Allergies Allergy/AdvReac Type Severity Reaction Status Date / Time No Known Drug Allergies Allergy Verified 11/18/23 10:06 Anes History & Medical History - Anesthetic History Anesthesia Complications: reports: No previous complications Family history of Anesthesia Complications: Denies Family history of Malignant Hyperthermia: Denies - Medical History Cardiovascular: reports: None Pulmonary: reports: None Gastrointestinal: reports: Other (morbid obesity) Urinary: reports: Kidney stones Neuro: reports: Headaches, Migraines Musculoskeletal: reports: Fatigue, Chronic back pain, Other Endocrine/Autoimmune: reports: HyPOthyroidism Blood Disorders: reports: None Skin: reports: None Smoking Status: Current every day smoker Psychosocial: reports: Cannabis History of Cancer?: No - Surgical History Eyes Ears Nose Throat (EENT): reports: Tonsil/Adenoidectomy Gynecologic: reports: section, Dilation and currettage Exam General: Alert, Oriented x3, Cooperative Dental: Poor dentition Mouth Openin Fingerbreadth Neck Mobility: Normal Mallampati classification: II Thyromental Distance: 4-6 cm Respiratory: Lungs clear Cardiovascular: Regular rate Mental/Cognitive Status: Alert/Oriented X3, Normal for patient Cognitive Status: Other (describe below) (very tearful and anxious in pre-op) Plan Anesthesia Type: General Consent for Procedure(s) Verified and Reviewed: Yes Code Status: Attempt Resuscitation ASA classification: 2-Mild systemic disease Is this case an emergency?: No
[2023-11-18] MEDS ORDERED: fentaNYL 100 MCG/2 ML VIAL IVP PRN (11:32)
[2023-11-18] MEDS ORDERED: METOCLOPRAMIDE 10 MG/2 ML VIAL IVP PRN (11:32)
[2023-11-18] MEDS ORDERED: ePHEDrine 50 MG/ML VIAL IVP PRN (11:32)
[2023-11-18] MEDS ORDERED: ATROPINE ABBOJECT 1 MG/10 ML SYRINGE IVP PRN (11:32)
[2023-11-18] MEDS ORDERED: MORPHINE 2 MG/ML CARPUJECT IVP PRN (11:32)
[2023-11-18] MEDS ORDERED: NALOXONE 0.4 MG/ML VIAL IVP PRN (11:32)
[2023-11-18] MEDS ORDERED: DEXAMETHASONE 4 MG/ML VIAL ONE (11:35)
[2023-11-18] MEDS ORDERED: ONDANSETRON 4 MG/2 ML VIAL ONE (11:35)
[2023-11-18] MEDS ORDERED: LACTATED RINGERS 1,000 ML IV SCH (12:00)
[2023-11-18] MEDS ORDERED: HYDROmorphone 1 MG/ML CARPUJECT ONE ×2 (12:21→15:04)
[2023-11-18] MEDS ORDERED: SUGAMMADEX 200 MG/2 ML VIAL IVP ONE (13:25)
[2023-11-18] MEDS ORDERED: KETOROLAC 30 MG/ML VIAL ONE (13:26)
[2023-11-18] MEDS ORDERED: METHYLENE BLUE 0.5% 50 MG/10 ML AMPULE ONE (14:20)
[2023-11-18] MEDS: HYDROmorphone 0.5 MG/0.5 ML SYRINGE IVP PRN (15:04)
[2023-11-18] MEDS: ONDANSETRON 4 MG/2 ML VIAL IVP PRN ×2 (15:05→17:38)
[2023-11-18] MEDS: SCOPOLAMINE PATCH TOP ONE (15:47)
[2023-11-18] MEDS ORDERED: SCOPOLAMINE PATCH TOP SCH (16:00)
[2023-11-18] MEDS: ACETAMINOPHEN 1,000 MG/100 ML 1,000 MG/100 ML BAG IV PRN (16:25)
[2023-11-18] MEDS: oxyCODONE 5 MG TABLET PO PRN (16:42)
--- NOTE | 2023-11-18 18:07 | ANESTHESIA POST OP EVALUATION ---
Anesthesia Post Eval - Post Anesthesia Eval Vitals: Last Vital Signs Temp 36.6 C 11/18/23 17:30 Pulse 59 L 11/18/23 17:30 Resp 16 11/18/23 17:30 BP 124/78 11/18/23 17:30 Pulse Ox 99 11/18/23 17:30 O2 Flow Rate CV Function Including HR & BP: Stable Pain Control: Satisfactory Nausea & Vomiting: Negative Mental Status: Baseline Respiratory Status: Airway Patent Hydration Status: Satisfactory Anesthesia Complications: None
--- NOTE | 2023-11-18 19:12 | OPERATIVE REPORT ---
Operative Report - General Procedure Date: 11/18/23 Planned Procedure: laparoscopic assited vaginal hysterecomy with removal of right tube and left tube and ovary. Pre-Op Diagnosis: adenomyosis of uterus and left ovarian cyst, morbid obesity Procedure Performed: as above, plus cystoscopy Post Op Diagnosis: same - Procedure Note Primary Surgeon: Yecenia Doe MD Secondary Surgeon: Jaspreet Sharma MD with help during the case from DYLAN Kamara Anesthesia Provider: Olivier Pichardo CRNA Anesthesia Technique: General ET tube Pathology: Uterus both fallopian tubes and left ovary IV Fluids (mL): 1,900 Estimated Blood Loss (mL): 600 Urine Output (mL): 100 Indications: Patient with painful, heavy, periods that have not been fixed with medical management, painful left ovary every other month. Cyst noted on ultrasound in left ovary corresponding to her area of pain. She desires definitive treatment. She does not want to have more children. She initially sought care for sterilization but upon discussing her symptoms, hysterectomy with removal of left ovary seemed to make more sense. Risks of surgery were discussed. consents signed. Findings: adhesions from omentum to anterior abdominal wall. normal right ovary. left ovary with simple appearing cyst. unable to see liver well. Uterus was small with a somewhat long cervix. right tube was somewhat swollen. Inside of her bladder appeared normal. Urine was seen coming from both ureters. Complications: none, just that surgery was very difficult to her obesity and prior c sections and took about 3 hours. - Other Other Information/Narrative: My physician office assistant was present throughout the entire case and assisted with placing trocars, retraction and tissue stabilization and closing the abdominal incisions after the case was over. Second physician office assistant was also needed for part of the case to aid with retraction and holding camera, due to its complexities. Procedure: After explaining the risks and benefits, indications and alternatives, the patient was taken to the operating room where general anesthesia was induced without difficulty. She was then prepped and draped in the normal sterile fashion in the [facility]. A timeout was performed. SCDs were on prior to procedure. Preoperative antibiotics were with Ancef 3 grams and Flagyl 500 mg were given. A split speculum was placed in the vagina and a single-tooth tenaculum placed on anterior lip of the cervix. A cone cannula was then placed for uterine manipulation. A valadez catheter was placed in the bladder. I then changed my gloves and turned attention to the patient's abdomen. The umbilicus was infiltrated with quarter percent Marcaine. A 5 mm incision was made in the umbilical base. A 5 mm optical port was placed with a 5 mm 0 degree scope. The abdomen was filled with CO2 gas to 15 mm hg of pressure. Abdominal cavity was explored with findings as noted above. Accessory ports were placed in the right and left lower quadrant under direct visualization, after infiltrating with local anesthetic. This was under her pannus. Due to the adhesions and her size, visualization was challenging. The LigaSure device was then used to seal and divide the insertion of the tube and ovarian ligament into the uterus on the right. The mesosalpinx with sealed and divided.the round ligament was sealed and divided, all keeping close to the uterus. I was not able to see well enough to take down the tube on this side. The dissection was stopped before the cardinal and uterosacral ligaments as these will be taken down from above to be sure they are affixed to the vaginal cuff for support. On the left, the tube was sealed, transected and removed. The IP was sealed and transected close to the ovary itself. The round ligament was transected. Instruments were then removed and attention was turned to the vagina. The uterine manipulator was removed. A posterior weighted speculum was placed in the vagina, and the cervix was grasped with two single-tooth tenacula. A bovie was then used to make a circumferential incision around the cervix. Renee scissors were then used to gently dissect the anterior and posterior surfaces of the cervix, allowing for the bladder and rectum to be dissected away. The posterior peritoneum was entered. A figure of 8 stitch of 0 Vicryl was used to fix the peritoneum to the vaginal edge. The weight speculum was place over this edge and the stitch was clamped around the speculum holding it in place. Z clamps were used bilaterally to clamp the uterosacral ligaments. These pedicles were transected and then suture ligated with 0 Vicryl. These pedicles were then affixed to the cuff edge. The cardinal ligaments were similarly clamped cut and tied off with 0 Vicryl suture and affixed to the cuff. The anterior peritoneum was then entered. The last pedicles were transected and the ovary and then the uterus was removed intact. All pedicles were noted to be hemostatic. The anterior cuff edge was brought together with the anterior peritoneum with a figure of 8 stitch. The vaginal cuff edges were then closed with 0 Vicryl in a running baseball type stitch, turning in the raw edges. Excellent hemostasis was noted. All instruments were then removed from the vagina. Gloves were changed and attention was returned to the abdomen. The laparoscopy instruments were replaced and the surgical area were examined. There was some small areas of oozing which were cauterized. The right tube was identified. The tube and ovary on this side had pulled up into the mid abdomen. The tube was grapsed and removed with the LigaSure.Irrigation was done. Hemostasis was noted, but there was still some small areas of oozing. Surgicell foam was placed along the areas of disection. Ports were opened, allowing gas to escape and then were removed and closed with 4-0 Monocryl, followed by steristrip and bandaid. Patient was given methaline blue and cystoscopy was done using a lubed laproscope. The bladder was full enough that no addition fluid was needed to be added. Both ureters were seen effluxing urine, although it was not blue yet. Patient was awakened and taken recovery in stable condition. Counts: Correct multiple times.
[2023-11-18] MEDS ORDERED: HYDROmorphone 1 MG/ML CARPUJECT IVP PRN (20:41)
[2023-11-18] MEDS ORDERED: oxyCODONE 5 MG TABLET PO PRN (20:50)
[2023-11-18] MEDS: HYDROmorphone 1 MG/ML CARPUJECT IVP ONE (20:56)
--- NOTE | 2023-11-18 20:58 | PROVIDER PROGRESS NOTE ---
Subjective - Prog Note Date Prog Note Date: 11/18/23 Prog Note Time: 20:53 - Subjective Subjective: patient quite painful and having nausea due to pain. unable to go home due pain. very intense and miserable. took her a while to wake up after anesthesia so she could have adequate pain meds. requesting dilaudid iv. Objective - Vital Signs/Intake & Output Reviewed Vital Signs: Yes Vital Signs: Vital Signs x48h Temp Pulse Resp BP Pulse Ox 11/18/23 20:00 97.7 F 78 20 122/71 98 11/18/23 19:00 97.7 F 63 16 120/60 98 11/18/23 18:00 97.9 F 67 20 127/67 98 11/18/23 17:30 97.9 F 59 L 16 124/78 99 11/18/23 17:00 97.9 F 62 20 104/61 97 11/18/23 16:45 97.5 F L 78 20 112/54 L 97 11/18/23 16:30 97.7 F 65 20 114/57 L 97 11/18/23 16:15 97.7 F 67 20 120/78 96 11/18/23 15:55 97.5 F L 88 18 152/62 H 96 11/18/23 15:40 97.3 F L 70 17 152/62 H 100 11/18/23 15:30 93 17 151/54 H 99 11/18/23 15:20 78 19 138/66 H 95 11/18/23 15:05 94 17 167/97 H 92 11/18/23 15:00 98 16 159/68 H 96 11/18/23 14:55 101 H 17 171/81 H 97 11/18/23 14:50 72 12 163/81 H 100 11/18/23 14:45 97.2 F L 68 16 158/83 H 97 Intake & Output: Intake & Output 11/15/23 11/16/23 11/17/23 11/18/23 23:59 23:59 23:59 23:59 Intake Total 500 Output Total 620 Balance -120 - Objective General Appearance: positive: Moderate distress - Lab Results Other Labs: Lab Results x24hrs 11/18/23 Range/Units 09:38 Urine HCG, Qual NEGATIVE Assessment/Plan - Problem List (1) Post-op pain Impression: s/p lavh with significant post op pain. admit of observation to work on pain control. Also nauseated. orders written. talked to her RN and to patient herself. reassess in 30 min after iv dilaudid 2mg dose.
[2023-11-18 21:40] LABS: BASOPHILS % (AUTO) 0.1 %; HCT - HEMATOCRIT 36.6 % (37.0-47.0); HGB - HEMOGLOBIN 11.8 g/dL (12.0-16.0); LYMPHOCYTES # (AUTO) 1.4 10^3/uL (1.5-3.5); LYMPHOCYTES % (AUTO) 7.9 %; MEAN CORPUSCULAR HGB CONC 32.2 g/dL (32.0-36.0); MEAN CORPUSCULAR VOLUME 89.9 fL (81.0-99.0); MEAN PLATELET VOLUME 9.3 fL (7.9-10.8); MONOCYTES # (AUTO) 0.3 10^3/uL (0.0-1.0); MONOCYTES % (AUTO) 1.9 %; NEUTROPHILS # (AUTO) 15.7 10^3/uL (1.5-6.6); NEUTROPHILS % (AUTO) 89.6 %; PLT - PLATELET COUNT 326 10^3/uL (130-450); RED BLOOD COUNT 4.07 10^6/uL (4.20-5.40); RED CELL DISTRIBUTION WIDTH 13.8 % (12.0-15.0); WHITE BLOOD COUNT 17.5 x10^3/uL (4.8-10.8)
[2023-11-18] MEDS: PROCHLORPERAZINE 10 MG/2 ML VIAL IVP PRN (21:56)
[2023-11-18] MEDS: KETOROLAC 10 MG TABLET PO PRN (21:56)
[2023-11-18] MEDS: SIMETHICONE CHEW 80 MG TABLET PO PRN (21:56)
[2023-11-18 21:58] LABS: ALBUMIN/GLOBULIN RATIO 1.3 (1.0-2.2); BILIRUBIN,TOTAL 0.5 mg/dL (0.2-1.0); CALCIUM 9.2 mg/dL (8.5-10.3); CREATININE 0.8 mg/dL (0.6-1.3); MAGNESIUM 1.5 mg/dL (1.7-2.3); POTASSIUM 3.2 mmol/L (3.5-4.5); TOTAL PROTEIN 7.1 g/dL (6.4-8.9)
[2023-11-18] MEDS ORDERED: POTASSIUM CHLORIDE INJ 40 MEQ in SODIUM CHLORIDE 0.9% 500 ML IV ONE (22:09)
--- NOTE | 2023-11-18 22:18 | PROVIDER PROGRESS NOTE ---
Subjective - Prog Note Date Prog Note Date: 11/18/23 Prog Note Time: 22:16 - Subjective Subjective: feeling better per RN. gets quite anxious at times. Objective - Vital Signs/Intake & Output Vital Signs: Vital Signs x48h Temp Pulse Resp BP Pulse Ox 11/18/23 22:00 97.2 F L 81 16 125/71 95 11/18/23 21:00 97.7 F 91 16 125/64 97 11/18/23 20:00 97.7 F 78 20 122/71 98 11/18/23 19:00 97.7 F 63 16 120/60 98 11/18/23 18:00 97.9 F 67 20 127/67 98 11/18/23 17:30 97.9 F 59 L 16 124/78 99 11/18/23 17:00 97.9 F 62 20 104/61 97 11/18/23 16:45 97.5 F L 78 20 112/54 L 97 11/18/23 16:30 97.7 F 65 20 114/57 L 97 11/18/23 16:15 97.7 F 67 20 120/78 96 11/18/23 15:55 97.5 F L 88 18 152/62 H 96 11/18/23 15:40 97.3 F L 70 17 152/62 H 100 11/18/23 15:30 93 17 151/54 H 99 11/18/23 15:20 78 19 138/66 H 95 11/18/23 15:05 94 17 167/97 H 92 11/18/23 15:00 98 16 159/68 H 96 11/18/23 14:55 101 H 17 171/81 H 97 11/18/23 14:50 72 12 163/81 H 100 11/18/23 14:45 97.2 F L 68 16 158/83 H 97 Intake & Output: Intake & Output 11/15/23 11/16/23 11/17/23 11/18/23 23:59 23:59 23:59 23:59 Intake Total 600 Output Total 1020 Balance -420 - Lab Results Fish Bones: 11/18/23 21:30 11/18/23 21:30 Other Labs: Lab Results x24hrs 11/18/23 11/18/23 11/18/23 Range/Units 21:30 21:30 09:38 WBC 17.5 H (4.8-10.8) x10^3/uL RBC 4.07 L (4.20-5.40) 10^6/uL Hgb 11.8 L (12.0-16.0) g/dL Hct 36.6 L (37.0-47.0) % MCV 89.9 (81.0-99.0) fL MCH 29.0 (27.0-31.0) pg MCHC 32.2 (32.0-36.0) g/dL RDW 13.8 (12.0-15.0) % Plt Count 326 (130-450) 10^3/uL MPV 9.3 (7.9-10.8) fL Neut # (Auto) 15.7 H (1.5-6.6) 10^3/uL Lymph # (Auto) 1.4 L (1.5-3.5) 10^3/uL Taliaferro # (Auto) 0.3 (0.0-1.0) 10^3/uL Eos # (Auto) 0.0 (0.0-0.7) 10^3/uL Baso # (Auto) 0.0 (0.0-0.1) 10^3/uL Absolute Nucleated RBC 0.00 x10^3/uL Nucleated RBC % 0.0 /100WBC Sodium 139 (135-145) mmol/L Potassium 3.2 L (3.5-4.5) mmol/L Chloride 103 (101-111) mmol/L Carbon Dioxide 28 (21-32) mmol/L Anion Gap 8.0 (6-13) BUN 11 (6-20) mg/dL Creatinine 0.8 (0.6-1.3) mg/dL Estimated GFR (MDRD) 82 L (>89) Glucose 153 H (74-104) mg/dL Calcium 9.2 (8.5-10.3) mg/dL Magnesium 1.5 L (1.7-2.3) mg/dL Total Bilirubin 0.5 (0.2-1.0) mg/dL AST 16 (10-42) IU/L ALT 21 (10-60) IU/L Alkaline Phosphatase 82 (42-121) IU/L Total Protein 7.1 (6.4-8.9) g/dL Albumin 4.0 (3.2-5.5) g/dL Globulin 3.1 (2.1-4.2) g/dL Albumin/Globulin Ratio 1.3 (1.0-2.2) Urine HCG, Qual NEGATIVE Assessment/Plan - Problem List (1) Post-op pain Impression: doing better. RN reports she is 6/10 pain now. encouraged po oxycodone. K+ and Mag are low. replacement ordered. HCT stable. Vitals stable. will reassess in am and hopefully she can go home.
[2023-11-18] MEDS: MAGNESIUM SULFATE 2 GRAM 2 GM/50 ML BAG IV ONE (22:41)
[2023-11-18] MEDS ORDERED: MAGNESIUM SULFATE IN WATER 20 GM/500 ML IV.SOLN IV SCH (23:00)
[2023-11-19] MEDS: ACETAMINOPHEN 500 MG TABLET PO SCH (00:11)
[2023-11-19] MEDS: POTASSIUM CHLOR 10 MEQ/100 ML 10 MEQ/100 ML BAG IV SCH (00:11)
[2023-11-19] MEDS: LEVOTHYROXINE 100 MCG TABLET PO SCH (06:02)
[2023-11-19] MEDS: LEVOTHYROXINE 75 MCG TABLET PO SCH (06:02)
[2023-11-19] MEDS ORDERED: METHYLPHENIDATE HCL 10 MG PO SCH (09:00)
[2023-11-19] MEDS ORDERED: LEVOTHYROXINE SODIUM 175 MCG PO SCH (09:00)
--- NOTE | 2023-11-19 10:38 | PHARMACY PROGRESS NOTE ---
- Best Possible Medication History Admit Date and Time: 11/18/232041 Processed by: Pharmacy Medications reviewed in ED?: Yes Medication History completed: Yes Patient Interview: Completed (BY HOMAR FLORES) Secondary Source(s): Pharmacy records, Insurance records As the person ultimately responsible for medication therapy, providers are able to order a medication from an existing home medication list in [facility] via the "Reconcile Routine" prior to Confirmation of that medication by operations support specialist. Such practice is discouraged except when the physician, in their clinical judgment, deems that a medical need exists for a medication without regard to previous use.
[2023-11-19 10:47] VITALS: BP 134/76; O2SAT 96
--- NOTE | 2023-11-19 19:19 | DISCHARGE SUMMARY ---
"Discharge Summary Admit Date: 11/18/23 Discharge Date: 11/19/23 Discharging Provider: Yecenia Doe MD Code Status: Attempt Resuscitation Condition at Discharge: Good - DIAGNOSES Admission Diagnoses: post op pain and nausea, s/p LAVH on day of admission. morbid obesity Discharge Diagnoses with Status of Each Condition: post op pain and nausea were well controlled at time of discharge. Also had hypokalemia and hypomagnesia which were replaced with K+ and Mg+ - HPI History of Present Illness: patient had hysterectomy laparoscopic assisted with lso performed 11/18/23. procedure was difficult and took about 3 hours. afterwards she had post op pain and nausea that were difficult to control. She was admitted to manage this. - CONSULTS | PROCEDURES Procedures: Laparoscopic assisted vaginal hysterectomy with right salpingectomy and left salpingo-oophorectomy done for pain and bleeding. - HOSPITAL COURSE Hospital Course: after surgery she struggled with pain and nausea. Once she woke up well from anesthesia, she did quite well with iv dilaudid and zofran. By morning she was feeling much better and ready to go home. - ALLERGIES Allergies/Adverse Reactions: Allergies Allergy/AdvReac Type Severity Reaction Status Date / Time No Known Drug Allergies Allergy Verified 11/18/23 10:06 - MEDICATIONS Home Medications: Ambulatory Orders Medication Instructions Recorded Confirmed Ketorolac [Toradol] 10 mg PO DAILY PRN 11/11/23 11/11/23 Levothyroxine Sodium 175 mcg PO DAILY 11/11/23 11/18/23 Methylphenidate HCl [Metadate Cd] 10 mg PO DAILY 11/11/23 11/18/23 hydroCHLOROthiazide [Hydrodiuril] 12.5 mg PO DAILY 11/11/23 11/18/23 Acetaminophen 650 mg PO Q4HR PRN #30 ea 11/18/23 Docusate Sodium 100Mg Capsule 100 - 200 mg PO BID PRN #60 cap 11/18/23 [Colace 100Mg Capsule] Ketorolac [Toradol] 10 mg PO Q6H PRN #20 tablet 11/18/23 Pnv No.95/Ferrous Fum/Folic AC 1 each PO DAILY #90 tablet 11/18/23 [ Tablet] oxyCODONE [Roxicodone] 5 - 10 mg PO Q4HR PRN #16 tab 11/18/23 Ondansetron Odt [Zofran Odt] 4 mg TL Q6H PRN #20 tablet 11/19/23 - PHYSICAL EXAM AT DISCHARGE General Appearance: positive: No acute distress Respiratory: positive: No respiratory distress Cardiovascular: positive: Regular rate & rhythm Abdomen: positive: Other (appropriately tender) Extremities: positive: Non-tender - LABS Result Diagrams: 11/18/23 21:30 11/18/23 21:30 - FOLLOW UP Follow Up: 1-2 weeks - TIME SPENT Time Spent in Discharge (Minutes): 30"
== END 2023-11-19 12:00 | disposition home or self-care (01) ==
LOC: SDS 09:33 → MS2 14:44 → SDS 22:00
PROVIDERS: ADMIT Obstetrics & Gynecology; ATTEND Obstetrics & Gynecology
PROC: 0UT1FZZ Resection of Left Ovary, Via Natural or Artificial Opening With Percutaneous Endoscopic Assistance (ICD-10-PCS; 2023-11-18)
PROC: 0UT9FZZ Resection of Uterus, Via Natural or Artificial Opening With Percutaneous Endoscopic Assistance (ICD-10-PCS; principal; 2023-11-18 10:30)
PROC: 0UT7FZZ Resection of Bilateral Fallopian Tubes, Via Natural or Artificial Opening With Percutaneous Endoscopic Assistance (ICD-10-PCS; 2023-11-18 10:30)
DX: G89.18 Other acute postprocedural pain (principal); R11.0 Nausea; E87.6 Hypokalemia; E83.42 Hypomagnesemia; N80.03 Adenomyosis of the uterus; N83.292 Other ovarian cyst, left side; E06.3 Autoimmune thyroiditis; E66.01 Morbid (severe) obesity due to excess calories; Z32.02 Encounter for pregnancy test, result negative; Z68.41 Body mass index [BMI] 40.0-44.9, adult; Z79.52 Long term (current) use of systemic steroids; Z79.890 Hormone replacement therapy; Z79.899 Other long term (current) drug therapy; Z87.891 Personal history of nicotine dependence; Z88.5 Allergy status to narcotic agent; Z88.8 Allergy status to other drugs, medicaments and biological substances
CPT/HCPCS: 36415; 58552; 80053; 81025; 83735; 85025; 96365; 96375; 96376; A9270; G0378; J0131; J1170; J3490; J7120

== ENCOUNTER 2023-11-25 16:24 | Outpatient (CLI) | payer MEDICAID | END 2023-11-25 16:25 | disposition EMS.NT | LOC: EMS 16:24 | DX: R42 Dizziness and giddiness (principal); R09.89 Other specified symptoms and signs involving the circulatory and respiratory systems; F41.9 Anxiety disorder, unspecified ==

== ENCOUNTER 2024-02-03 23:47 | Outpatient (CLI) | payer MEDICAID | END 2024-02-03 23:59 | disposition critical access hospital (66) | LOC: EMS 23:47 | DX: K04.7 Periapical abscess without sinus (principal) ==

== ENCOUNTER 2024-02-04 00:20 | Emergency (ER) | payer MEDICAID ==
--- NOTE | 2024-02-04 03:03 | ED Physician Documentation ---
PD HPI HEENT - Stated complaint Stated Complaint: R TOOTH PX - Chief complaint Chief Complaint: Heent - History obtained from History obtained from: Patient - Additional information Additional information: HPI from patient. Patient complains of approximately 5 days of gradual onset, steadily worsening right facial swelling and pain. The symptoms, at onset, were initially immediately adjacent to a right-sided tooth that she broke 2 years ago. She says she has not had any swelling nor pain in those subsequent 2 years until 5 days ago. 6 days ago, she went for a swim in a [place], and the following day she had the gradual onset of these symptoms. She was evaluated in an outpatient clinic yesterday and was given a shot of Toradol and provided a prescription for oral ketorolac. She says she also received an injection of an antibiotic (patient does not know which one), and was prescribed Augmentin. She has had 2 doses of the Augmentin thus far. She presents at this time due to severe facial pain associated with right-sided facial swelling. She denies fevers. Patient says she was scheduled to have the broken tooth pulled recently, but had to cancel the appointment due to her being hospitalized for medical illness. She rescheduled this appointment and is scheduled to have the tooth pulled this coming Friday. Review of Systems Constitutional: denies: Fever, Chills, Sweats Throat: reports: Dental pain / toothache. denies: Sore throat Cardiac: reports: Reviewed and negative Respiratory: reports: Reviewed and negative GI: reports: Reviewed and negative Musculoskeletal: reports: Neck pain Neurologic: reports: Headache PD PAST MEDICAL HISTORY - Past Medical History Past Medical History: No Cardiovascular: None Respiratory: None Neuro: Headaches, Migraines Endocrine/Autoimmune: HyPOthyroidism GI: Other SIGN LANGUAGE TRANSLATOR: Ectopic , Ovarian cysts : Kidney stones HEENT: None Psych: Anxiety, ADD/ADHD, Post traumatic stress disorder Musculoskeletal: Fatigue, Chronic back pain, Other Derm: None - Past Surgical History Past Surgical History: Yes /SIGN LANGUAGE TRANSLATOR: section, Dilation and currettage HEENT: Tonsil/Adenoidectomy - Present Medications Home Medications: Ambulatory Orders Medication Instructions Recorded Confirmed Ketorolac [Toradol] 10 mg PO DAILY PRN 11/11/23 11/11/23 Levothyroxine Sodium 175 mcg PO DAILY 11/11/23 11/18/23 Methylphenidate HCl [Metadate Cd] 10 mg PO DAILY 11/11/23 11/18/23 hydroCHLOROthiazide [Hydrodiuril] 12.5 mg PO DAILY 11/11/23 11/18/23 Acetaminophen 650 mg PO Q4HR PRN #30 ea 11/18/23 Docusate Sodium 100Mg Capsule 100 - 200 mg PO BID PRN #60 cap 11/18/23 [Colace 100Mg Capsule] Ketorolac [Toradol] 10 mg PO Q6H PRN #20 tablet 11/18/23 Pnv No.95/Ferrous Fum/Folic AC 1 each PO DAILY #90 tablet 11/18/23 [ Tablet] oxyCODONE [Roxicodone] 5 - 10 mg PO Q4HR PRN #16 tab 11/18/23 Ondansetron Odt [Zofran Odt] 4 mg TL Q6H PRN #20 tablet 11/19/23 - Allergies Allergies/Adverse Reactions: Allergies Allergy/AdvReac Type Severity Reaction Status Date / Time No Known Drug Allergies Allergy Verified 02/04/24 00:29 - Social History Does the pt smoke?: Yes Smoking Status: Current every day smoker Does the pt drink ETOH?: Yes Does the pt have substance abuse?: Yes - Immunizations Immunizations are current?: Yes - POLST Patient has POLST: Yes PD ED PE NORMAL - Vitals Vital signs reviewed: Yes - General General: Alert and oriented X 3, Well developed/nourished, Other (obvious painful distress) - HEENT HEENT: PERRL, EOMI PD ED PE EXPANDED - HEENT HEENT: Other (right maxillary first premolar is cracked and surrounding gingiva is erythematous and edematous but without focal swelling or fluctuance to suggest abscess.) HEENT Visual: 1 - swelling (subtle swelling), tenderness (significant TTP with faint crepitus) Results - Vitals Vitals: Vital Signs - 24 hr 02/04/24 02/04/24 02/04/24 00:26 05:00 06:04 Temperature 36.8 C Heart Rate 84 88 79 Respiratory 18 20 16 Rate Blood Pressure 148/90 H 122/82 H 116/74 O2 Saturation 98 96 96 02/04/24 06:05 Temperature Heart Rate 66 Respiratory Rate Blood Pressure O2 Saturation Oxygen O2 Source Room air - Labs Labs: Laboratory Tests 02/04/24 02/04/24 03:24 03:24 WBC 10.0 RBC 4.92 Hgb 14.3 Hct 43.5 MCV 88.4 MCH 29.1 MCHC 32.9 RDW 13.2 Plt Count 328 MPV 9.3 Neut # (Auto) 6.2 Lymph # (Auto) 3.1 Saline # (Auto) 0.5 Eos # (Auto) 0.2 Baso # (Auto) 0.1 Absolute Nucleated RBC 0.00 Nucleated RBC % 0.0 Sodium 137 Potassium 3.7 Chloride 104 Carbon Dioxide 22 Anion Gap 11.0 BUN 20 Creatinine 0.9 Estimated GFR (MDRD) 71 L Glucose 112 H Calcium 10.2 - Rads (name of study) maxillofacial CT Relevant Findings:: Prelim report reviewed, See rad report PD Medical Decision Making - ED course Complexity details: considered differential, d/w patient ED course: Afebrile with normal CBC, BMP . Maxillofacial CT demonstrates "[id number] emphysema within the right buccal and screen print operator space fat with neighboring mild fat effacement. No evidence of abscess" (per radiologist's reading). Overall clinical picture with this CT finding is concerning for NSTI. She is given 3 g Unasyn IV. I discussed this case with Dr. Ortiz (on-call oral surgeon for [facility]), she accepts patient for transfer with plan for ER-to-ER transfer. Note that patient's pain was difficult to control during ED stay but eventually was achieved with dilaudid (1 mg x 3 doses followed by 0.5mg IV) with lorazepam (1mg IV followed by 0.5 mg IV). Results d/w patient. Departure - Departure Disposition: 02 Transfer Acute Care Hosp Clinical Impression: Necrotizing soft tissue infection Condition: Fair Forms: PCP List Discharge Date/Time: 02/04/24 07:30
[2024-02-04 03:27] LABS: BASOPHILS # (AUTO) 0.1 10^3/uL (0.0-0.1); BASOPHILS % (AUTO) 0.6 %; EOSINOPHILS # (AUTO) 0.2 10^3/uL (0.0-0.7); HCT - HEMATOCRIT 43.5 % (37.0-47.0); HGB - HEMOGLOBIN 14.3 g/dL (12.0-16.0); LYMPHOCYTES # (AUTO) 3.1 10^3/uL (1.5-3.5); LYMPHOCYTES % (AUTO) 30.4 %; MEAN CORPUSCULAR HEMOGLOBIN 29.1 pg (27.0-31.0); MEAN CORPUSCULAR HGB CONC 32.9 g/dL (32.0-36.0); MEAN CORPUSCULAR VOLUME 88.4 fL (81.0-99.0); MEAN PLATELET VOLUME 9.3 fL (7.9-10.8); MONOCYTES # (AUTO) 0.5 10^3/uL (0.0-1.0); MONOCYTES % (AUTO) 5.1 %; NEUTROPHILS # (AUTO) 6.2 10^3/uL (1.5-6.6); NEUTROPHILS % (AUTO) 61.7 %; PLT - PLATELET COUNT 328 10^3/uL (130-450); RED BLOOD COUNT 4.92 10^6/uL (4.20-5.40); RED CELL DISTRIBUTION WIDTH 13.2 % (12.0-15.0)
[2024-02-04] MEDS ORDERED: iohexoL-300 100 ML VIAL ONE (03:27)
[2024-02-04] MEDS: AMPICILLIN/SULBACTAM 3 GM in SODIUM CHLORIDE 0.9% MINIBAG 100 ML IV STA (03:36)
[2024-02-04] MEDS: HYDROmorphone 1 MG/ML CARPUJECT IVP STA ×4 (03:36→07:13)
[2024-02-04 03:45] LABS: CALCIUM 10.2 mg/dL (8.5-10.3); CREATININE 0.9 mg/dL (0.6-1.3); POTASSIUM 3.7 mmol/L (3.5-4.5)
[2024-02-04] MEDS: iohexoL-300 100 ML VIAL IVP ONE (04:26)
[2024-02-04 05:44] VITALS: O2SAT 96
[2024-02-04] MEDS: LORazepam 2 MG/ML VIAL IVP STA ×2 (06:01→07:13)
[2024-02-04 06:10] VITALS: BP 116/74
[2024-02-04] MEDS: ONDANSETRON 4 MG/2 ML VIAL IVP STA (06:50)
--- NOTE | 2024-02-04 09:22 | CT Report ---
PROCEDURE: Maxillofacial W INDICATIONS: right-sided dental infection CONTRAST: Omni 300, 100mls TECHNIQUE: After the administration of intravenous contrast, 3.0 mm axial sections acquired from the mid-neck to the frontal sinuses, with coronal reformatting. For radiation dose reduction, the following was use d: automated exposure control, adjustment of mA and/or kV according to patient size. COMPARISON: None. FINDINGS: Image quality: Excellent. Soft tissues: Mild to moderate soft tissue emphysema is present in the right pupil and research professor of biostatistics spa ce fat. No focal abscess. Vascular: Visualized vascular structures appear patent throughout. Bony vascular foramina and canal s appear normal. Bones: Facial bones appear intact, without fractures, erosions, or destruction. Visualized portions of the skull base and auditory canals also appear normal. 2 remnant/broken teeth are present at the posterior and anterior aspect of the maxillary arch periodontal disease is present. Sinuses: Retention cyst versus polyps are present in the maxillary sinuses bilaterally. IMPRESSION: Mild to moderate soft tissue emphysema is present in the right pupil and research professor of biostatistics space fat. Overal l appearance is suggestive of inflammation. No evidence of abscess. Broken maxillary teeth/remnants with multiple dental caries. No abscess. Reviewed by: Adelaide Kaiser MD on 02/04/2024 9:20 AM PDT Approved by: Adelaide Kaiser MD on 02/04/2024 9:20 AM PDT Station ID: [id number]
== END 2024-02-04 07:30 | disposition short-term general hospital (02) ==
LOC: EDUNIT# → ED 00:20
DX: M72.6 Necrotizing fasciitis (principal); K04.7 Periapical abscess without sinus; E03.9 Hypothyroidism, unspecified; Z87.442 Personal history of urinary calculi; Z79.899 Other long term (current) drug therapy; F17.200 Nicotine dependence, unspecified, uncomplicated
CPT/HCPCS: 36415; 70487; 80048; 85025; 96365; 96375; 96376; 99284; 99285; J1170; J2060; Q9967

== ENCOUNTER 2024-02-06 00:59 | Emergency (ER) | payer MEDICAID ==
--- NOTE | 2024-02-06 01:44 | ED Physician Documentation ---
History of Present Illness - Stated complaint Stated Complaint: GI - Chief complaint Chief Complaint: Abd Pain - History obtained from History obtained from: Patient - Additonal information Additional information: 33-year-old woman who was recently discharged from [facility] for treatment of necrotizing infection, currently on Augmentin, presents with unusual sensations in the abdomen like water is moving through, along with some dark stools and loose stools. she also voices concern over the skin of her abdomen being pale in color, which is unusual for her. Denies fever, abdominal pain, nausea or vomiting, urinary symptoms. 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: Ectopic , Ovarian cysts : Kidney stones HEENT: None Psych: Anxiety, ADD/ADHD, Post traumatic stress disorder Musculoskeletal: Fatigue, Chronic back pain, Other Derm: None - Past Surgical History Past Surgical History: Yes /SHOE ASSOCIATE: section, Dilation and currettage, Hysterectomy HEENT: Tonsil/Adenoidectomy - Present Medications Home Medications: Ambulatory Orders Medication Instructions Recorded Confirmed Levothyroxine Sodium 175 mcg PO DAILY 11/11/23 02/06/24 Methylphenidate HCl [Metadate Cd] 10 mg PO DAILY 11/11/23 02/06/24 hydroCHLOROthiazide [Hydrodiuril] 12.5 mg PO DAILY 11/11/23 02/06/24 Docusate Sodium 100Mg Capsule 100 - 200 mg PO BID PRN #60 cap 11/18/23 02/06/24 [Colace 100Mg Capsule] Ketorolac [Toradol] 10 mg PO Q6H PRN #20 tablet 11/18/23 02/06/24 Pnv No.95/Ferrous Fum/Folic AC 1 each PO DAILY #90 tablet 11/18/23 02/06/24 [ Tablet] Acetaminophen [Tylenol] 1,000 mg PO Q8HR 02/06/24 02/06/24 Amox/Clav 875/125 [Augmentin 1 tablet PO Q12H 02/06/24 02/06/24 875/125 Tab] Chlorhexidine Gluconate [Peridex] 15 ml MM BID 02/06/24 02/06/24 oxyCODONE [Roxicodone] 5 mg PO Q6HR PRN 02/06/24 02/06/24 - Allergies Allergies/Adverse Reactions: Allergies Allergy/AdvReac Type Severity Reaction Status Date / Time No Known Drug Allergies Allergy Verified 02/04/24 00:29 - Social History Does the pt smoke?: Yes Smoking Status: Current every day smoker Does the pt drink ETOH?: Yes Does the pt have substance abuse?: Yes - Immunizations Immunizations are current?: Yes - POLST Patient has POLST: Yes PD ED PE NORMAL - Vitals Vital signs reviewed: Yes - General General: Alert and oriented X 3, No acute distress, Well developed/nourished - HEENT HEENT: Atraumatic, PERRL, EOMI - Abdomen Abdomen: Non tender, Non distended - Rectal Rectal: Other (Brown stool on digital rectal exam) - Derm Derm: Normal color, Warm and dry Results - Vitals Vitals: Vital Signs - 24 hr 02/06/24 01:12 Temperature 36.4 C L Heart Rate 88 Respiratory 16 Rate Blood Pressure 107/68 O2 Saturation 100 Oxygen O2 Source Room air PD Medical Decision Making - ED course ED course: 33-year-old woman presents for evaluation of intestinal symptoms as well as loose dark stools. Brown stool on digital rectal exam. This was sent for fecal occult blood testing and she also had basic labs done which were normal. Plan to discharge home and follow-up outpatient with her primary care provider. Return precautions given. Departure - Departure Clinical Impression: Diarrhea, Sensation of gaseous abdominal fullness Instructions: Amoxicillin Clavulanic Acid tablets Comments: You were seen in the emergency department for medical evaluation. Your exam of your rectum uncovered no blood or dark stool. Your labwork was normal. Your diarrhea may be a side effect of the augmentin. Please follow-up with your primary care provider and return to the emergency department if you have any new or worsening symptoms or other concerns.
[2024-02-06 01:55] LABS: BASOPHILS # (AUTO) 0.1 10^3/uL (0.0-0.1); BASOPHILS % (AUTO) 0.9 %; EOSINOPHILS # (AUTO) 0.2 10^3/uL (0.0-0.7); EOSINOPHILS % (AUTO) 1.8 %; HCT - HEMATOCRIT 39.5 % (37.0-47.0); HGB - HEMOGLOBIN 12.4 g/dL (12.0-16.0); LYMPHOCYTES # (AUTO) 3.3 10^3/uL (1.5-3.5); LYMPHOCYTES % (AUTO) 37.9 %; MEAN CORPUSCULAR HEMOGLOBIN 28.9 pg (27.0-31.0); MEAN CORPUSCULAR HGB CONC 31.4 g/dL (32.0-36.0); MEAN CORPUSCULAR VOLUME 92.1 fL (81.0-99.0); MEAN PLATELET VOLUME 9.5 fL (7.9-10.8); MONOCYTES # (AUTO) 0.6 10^3/uL (0.0-1.0); MONOCYTES % (AUTO) 6.9 %; NEUTROPHILS # (AUTO) 4.6 10^3/uL (1.5-6.6); NEUTROPHILS % (AUTO) 52.3 %; PLT - PLATELET COUNT 271 10^3/uL (130-450); RED BLOOD COUNT 4.29 10^6/uL (4.20-5.40); WHITE BLOOD COUNT 8.7 x10^3/uL (4.8-10.8)
[2024-02-06 02:12] LABS: ALBUMIN 4.2 g/dL (3.2-5.5); ALBUMIN/GLOBULIN RATIO 1.3 (1.0-2.2); BILIRUBIN,TOTAL 0.3 mg/dL (0.2-1.0); CALCIUM 9.9 mg/dL (8.5-10.3); CREATININE 0.9 mg/dL (0.6-1.3); POTASSIUM 3.6 mmol/L (3.5-4.5); TOTAL PROTEIN 7.4 g/dL (6.4-8.9)
[2024-02-06 02:44] VITALS: BP 108/67; O2SAT 97
== END 2024-02-06 02:36 | disposition home or self-care (01) ==
LOC: ED 00:59
DX: R19.7 Diarrhea, unspecified (principal); R14.0 Abdominal distension (gaseous); E03.9 Hypothyroidism, unspecified; Z87.442 Personal history of urinary calculi; Z79.899 Other long term (current) drug therapy; F17.200 Nicotine dependence, unspecified, uncomplicated
CPT/HCPCS: 36415; 80053; 82272; 82274; 83690; 85025; 99283

== ENCOUNTER 2024-02-07 13:34 | Emergency (ER) | payer MEDICAID ==
--- NOTE | 2024-02-07 14:08 | ED Physician Documentation ---
History of Present Illness - Stated complaint Stated Complaint: RT FACE SWELLING, N/V - Chief complaint Chief Complaint: General - History obtained from History obtained from: Patient - Additonal information Additional information: She had bad teeth for a long time. She saw my partner a few nights ago for right-sided facial swelling and there was a concern for NSTI so she was sent to [facility]. There, they did not think she had an NSTI and she had the culprit tooth pulled. She is been having problems with pain since then and is on Augmentin. She has had increased facial swelling and a lot of nausea and vomiting today. No possibility of as she has had a hysterectomy. 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: section, Dilation and currettage HEENT: Tonsil/Adenoidectomy - Present Medications Home Medications: Ambulatory Orders Medication Instructions Recorded Confirmed Levothyroxine Sodium 175 mcg PO DAILY 11/11/23 02/06/24 Methylphenidate HCl [Metadate Cd] 10 mg PO DAILY 11/11/23 02/06/24 hydroCHLOROthiazide [Hydrodiuril] 12.5 mg PO DAILY 11/11/23 02/06/24 Docusate Sodium 100Mg Capsule 100 - 200 mg PO BID PRN #60 cap 11/18/23 02/06/24 [Colace 100Mg Capsule] Ketorolac [Toradol] 10 mg PO Q6H PRN #20 tablet 11/18/23 02/06/24 Pnv No.95/Ferrous Fum/Folic AC 1 each PO DAILY #90 tablet 11/18/23 02/06/24 [ Tablet] Acetaminophen [Tylenol] 1,000 mg PO Q8HR 02/06/24 02/06/24 Amox/Clav 875/125 [Augmentin 1 tablet PO Q12H 02/06/24 02/06/24 875/125 Tab] Chlorhexidine Gluconate [Peridex] 15 ml MM BID 02/06/24 02/06/24 oxyCODONE [Roxicodone] 5 mg PO Q6HR PRN 02/06/24 02/06/24 Promethazine [Phenergan] 25 mg PO Q6H PRN #10 tab 02/07/24 clindamycin HCL [Cleocin HCl] 300 mg PO QID #28 cap 02/07/24 - Allergies Allergies/Adverse Reactions: Allergies Allergy/AdvReac Type Severity Reaction Status Date / Time No Known Drug Allergies Allergy Verified 02/07/24 13:37 - Social History Does the pt smoke?: Yes Smoking Status: Current every day smoker Does the pt drink ETOH?: Yes Does the pt have substance abuse?: Yes - Immunizations Immunizations are current?: Yes - POLST Patient has POLST: Yes PD ED PE NORMAL - Vitals Vital signs reviewed: Yes - General General: Alert and oriented X 3, No acute distress - HEENT HEENT: PERRL, EOMI, Other (Very mild right-sided facial swelling. No trismus. The sutured socket of the right maxillary premolar is intact without obvious active infection.) - Neuro Neuro: Alert and oriented X 3 Results - Vitals Vitals: Vital Signs - 24 hr 02/07/24 13:37 Temperature 36.8 C Heart Rate 99 Respiratory 16 Rate Blood Pressure 136/96 H O2 Saturation 92 Oxygen O2 Source Room air PD Medical Decision Making - ED course ED course: She presents with mild worsening of her facial swelling with recent dental infection. She looks well and her main issue though is nausea and vomiting. After the administration of IV fluids, a dose of clindamycin and Reglan she was feeling much better but did develop an akathisia reaction from the Reglan and re quested Ativan IV. Departure - Departure Disposition: 01 Home, Self Care Clinical Impression: Vomiting Condition: Good Record reviewed to determine appropriate education?: Yes Instructions: ED Nausea Vomiting Prescriptions: clindamycin HCL [Cleocin HCl] 300 mg PO QID #28 cap Promethazine [Phenergan] 25 mg PO Q6H PRN #10 tab PRN Reason: Nausea / Vomiting Comments: I sent your prescriptions electronically to the [facility] in [place]. You were seen today for nausea and received a dose of IV Reglan/metoclopramide. You did develop anxiety reaction from this which is known as akathisia and you might want to tell folks in the future that you had that reaction as it can be quite uncomfortable. I am changing her antibiotics given the nausea and also worsening infection potentially and sent a different nausea medicine with that down to the [facility] in [place]. Follow-up with your dental surgeon as scheduled. Return for new or worsening symptoms. Forms: PCP List
[2024-02-07] MEDS: METOCLOPRAMIDE 10 MG/2 ML VIAL IVP STA (14:15)
[2024-02-07] MEDS: HYDROmorphone 1 MG/ML CARPUJECT IVP STA (14:15)
[2024-02-07] MEDS: SODIUM CHLORIDE 0.9% 1,000 ML IV STA (14:16)
[2024-02-07] MEDS: CLINDAMYCIN 600 MG/50 ML 50 ML IV ONE (14:16)
[2024-02-07] MEDS: LORazepam 2 MG/ML VIAL IVP STA (15:10)
[2024-02-07 15:25] VITALS: BP 142/86; O2SAT 98
== END 2024-02-07 15:16 | disposition home or self-care (01) ==
LOC: ED 13:34
DX: R11.2 Nausea with vomiting, unspecified (principal); R51.9 Headache, unspecified; E03.9 Hypothyroidism, unspecified; Z87.442 Personal history of urinary calculi; Z79.899 Other long term (current) drug therapy; F17.200 Nicotine dependence, unspecified, uncomplicated
CPT/HCPCS: 96365; 96375; 99283; 99285; J1170; J2060; J2765